=== PATIENT | male | born 1955 | race Caucasian/White ===

== ENCOUNTER 2019-12-26 11:36 | Outpatient (CLI) | payer MEDICARE, SELFPAY ==
[2019-12-26 11:49] LABS: Hemoglobin 13.3 g/dL (14.0-18.0); Mean Corpuscular HGB Conc 34.1 g/dL (32.0-36.0); Mean Corpuscular Volume 90.9 fL (78.0-102.0); Mean Platelet Volume 10.5 fl (8.7-11.0); Platelet Count Result 162 K/mm3 (150-420); Red Blood Count 4.29 M/mm3 (4.70-6.10); Red Cell Distribution Width 13.3 % (11.6-14.4); White Blood Count 5.4 K/mm3 (4.8-10.8)
[2019-12-26 11:59] LABS: Hemoglobin A1C 5.8 % (<5.7)
[2019-12-26 12:47] LABS: Alanine Aminotransferase 43 U/L (16-63); Albumin Level 3.5 g/dL (3.4-5.0); Alkaline Phosphatase 105 U/L (46-116); Anion Gap 13.7 mmol/L (7-16); Aspartate Amino Transferase 45 U/L (15-37); Bilirubin,Total 0.4 mg/dL (0.00-1.00); Blood Urea Nitrogen 14 mg/dL (7-18); Calcium 8.5 mg/dL (8.5-10.1); Carbon Dioxide 27 mmol/L (21-32); Chloride 106 mmol/L (98-108); Estimated Glomerular Filt Rate > 60; Glucose 94 mg/dL (70-99); Osmolality Calculated 296 mOsm/kg (285-295); Potassium 3.7 mmol/L (3.5-5.1); Sodium 143 mmol/L (136-145); Total Protein 7.1 g/dL (6.4-8.2)
== END 2019-12-26 11:37 | disposition home or self-care (01) ==
LOC: CHSLAB 11:40
PROVIDERS: PCP Family Medicine; Visit Provider Family Medicine
DX: R73.03 Prediabetes (principal); I10 Essential (primary) hypertension
CPT/HCPCS: 36415; 80053; 83036; 85027

== ENCOUNTER 2020-06-23 14:35 | Outpatient (CLI) | payer MEDICARE, SELFPAY ==
--- NOTE | ~2020-06-23 | XR_ITS ---
EXAMINATION: XR ribs BI 3V w CXR 2V DATE: 06/23/2020 15:05 INDICATION: Bilateral rib and back pain post fall TECHNIQUE: PA and lateral views of the chest and 3 views of the left ribs and 3 views of the right ri bs were obtained. COMPARISON: None FINDINGS: No rib fractures identified. Findings reticular pattern in the anterior right upper lung zone with mo re coarse reticular opacities at the bilateral lung bases. No pleural effusion or pneumothorax. Cardi omediastinal silhouette is normal. Mild thoracic kyphosis with chronic mild anterior wedging of sever al mid to lower thoracic vertebral bodies. Mild thoracic spondylosis. IMPRESSION: 1. No rib fractures. 2. Fine reticular pattern in the anterior right upper lung zone and mild more coarse reticular opacit ies at the bilateral lung bases. Differential would include atelectasis, mild pulmonary edema, pneumo clemente, chronic interstitial lung disease or some combination thereof. Reviewed, dictated and finalized at location . ER HELPER IMPRESSION: 1. No rib fractures. 2. Fine reticular pattern in the anterior right upper lung zone and mild more c oarse reticular opacities at the bilateral lung bases. Differential would inclu de atelectasis, mild pulmonary edema, pneumonia, chronic interstitial lung dise ase or some combination thereof.
== END 2020-06-23 14:36 | disposition home or self-care (01) ==
LOC: CHSIMG 14:38
PROVIDERS: PCP Family Medicine; Visit Provider Family Medicine
DX: M54.9 Dorsalgia, unspecified (principal)
CPT/HCPCS: 71046; 71110

== ENCOUNTER 2021-01-15 09:11 | Outpatient (CLI) | payer MEDICARE, SELFPAY ==
--- NOTE | ~2021-01-15 | US_ITS ---
EXAMINATION:US venous doppler LE BI INDICATION:Leg pain TECHNIQUE: Multiple grayscale, color flow and Doppler images of the right and left lower extremity de ep venous systems were obtained and reviewed. COMPARISON:No prior studies for comparison. FINDINGS: The common femoral, superficial femoral and popliteal veins demonstrate normal respiratory variation, augmentation and compressibility. Color flow is also seen within the posterior tibial, pe roneal, greater saphenous and profunda veins. IMPRESSION: 1: No lower extremity deep venous thrombosis. Reviewed, dictated and finalized at location A.
[2021-01-15 09:30] LABS: Basophils Absolute Auto 0.07 K/mm3 (0.00-0.10); Eosinophils Absolute Auto 0.21 K/mm3 (0.02-0.50); Hematocrit 43.8 % (37.0-46.0); Immature Granulocyte Absolute 0.02 K/mm3 (0.00-0.00); Immature Granulocyte Percent A 0.3 % (0.0-0.0); Lymphocytes Absolute Auto 2.47 K/mm3 (1.10-4.50); Lymphocytes Percent Auto 35.6 % (18.0-42.0); Mean Corpuscular HGB Conc 34.2 g/dL (32.0-36.0); Mean Corpuscular Hemoglobin 31.4 pg (27.0-31.0); Mean Corpuscular Volume 91.8 fL (78.0-102.0); Mean Platelet Volume 10.9 fl (8.7-11.0); Monocytes Absolute Auto 0.78 K/mm3 (0.10-0.90); Monocytes Percent Auto 11.2 % (2.0-11.0); Neutrophils Absolute Auto 3.4 K/mm3 (1.7-7.2); Neutrophils Percent Auto 48.9 % (50.0-70.0); Platelet Count Result 174 K/mm3 (150-420); Red Blood Count 4.77 M/mm3 (4.70-6.10); Red Cell Distribution Width 13.7 % (11.6-14.4); White Blood Count 6.9 K/mm3 (4.8-10.8)
[2021-01-15 10:27] LABS: Rheumatoid Factor Screen Negative (Negative)
[2021-01-15 10:45] LABS: Alanine Aminotransferase 34 U/L (16-63); Albumin Level 3.8 g/dL (3.4-5.0); Alkaline Phosphatase 112 U/L (46-116); Anion Gap 12 mmol/L (8-16); Aspartate Amino Transferase 43 U/L (15-37); Bilirubin,Total 0.6 mg/dL (0.00-1.00); Blood Urea Nitrogen 26 mg/dL (7-18); Calcium 9.3 mg/dL (8.5-10.1); Carbon Dioxide 25 mmol/L (21-32); Chloride 101 mmol/L (98-108); Cholesterol 135 mg/dL (0-200); Creatine Kinase 172 U/L (39-308); Estimated Glomerular Filt Rate 52; Ferritin 87 ng/mL (26-388); Glucose 91 mg/dL (70-99); HDL Direct 42 mg/dL (40-60); Iron 81 ug/dL (65-175); LDL Cholesterol Calculated 74 mg/dL (<130); Osmolality Calculated 290 mOsm/kg (285-295); Percent Iron Saturation 23 % (12-57); Potassium 4.4 mmol/L (3.5-5.1); Sodium 138 mmol/L (136-145); Total Protein 7.8 g/dL (6.4-8.2); Triglycerides 97 mg/dL (0-150); Uric Acid 6.6 mg/dL (3.5-7.2)
[2021-01-15 10:48] LABS: Thyroid Stimulating Hormone Reflex 1.48 u/IU/mL (0.36-3.74)
[2021-01-15 11:15] LABS: Erythrocyte Sedimentation Rate 24 mm/hr (0-20)
== END 2021-01-15 09:12 | disposition home or self-care (01) ==
LOC: CHSLAB 09:15
PROVIDERS: PCP Family Medicine; Visit Provider Family Medicine
DX: M10.9 Gout, unspecified (principal); I10 Essential (primary) hypertension; M79.604 Pain in right leg; M79.605 Pain in left leg; R71.8 Other abnormality of red blood cells
CPT/HCPCS: 36415; 80053; 80061; 82550; 82728; 83540; 83550; 84443; 84550; 85025; 85652; 86038; 86140; 86430; 93970

== ENCOUNTER 2021-03-29 10:45 | Emergency (ER) | payer MEDICARE, SELFPAY ==
[2021-03-29 10:45] VITALS: BP 125/72; PULSE 85; RESP 16; TEMP 36.9; O2SAT 97
--- NOTE | 2021-03-29 10:57 | ED.URI ---
HPI - URI/Sore Throat General Chief Complaint: Upper Respiratory Infection Stated Complaint: tightness in chest Time Seen by Provider: 03/29/21 11:00 Source: patient Mode of arrival: ambulatory Limitations: no limitations History of Present Illness HPI Narrative: 66-year-old man with a history of hypertension and dyslipidemia comes to ER today complaining of 3 days of progressively worsening cough which is now nonproductive, shortness of breath, sore throat, nasal congestion and a fever of 103 last night. Patient states he has had no nausea, vomiting, diarrhea or known sick exposures. MD elicited complaint: fever, cough, sore throat, rhinorrhea and nasal congestion Onset (ago): day(s) (3) Consistency: constant and progressively worsening Severity: moderate Able to tolerate fluids by mouth: Yes Exacerbating factors: deep breaths Relieving factors: OTC cold medicine Associated symptoms: fever, myalgias, rhinorrhea, nasal congestion, sore throat, cough and shortness of breath Treatments prior to arrival: cold medicine Related Data Allergies Allergy/AdvReac Type Severity Reaction Status Date / Time tramadol Allergy Unknown Unknown Verified 01/15/21 08:14 Review of Systems Review of Systems: All systems reviewed & are unremarkable except as noted in HPI and below Constitutional: Constitutional: Denies chills and Reports fever(s) Eyes: Eyes: Denies change in vision and Denies photophobia ENT: Reports nasal congestion and Reports sore throat Cardiovascular: Cardiovascular: Denies chest pain and Denies radiating jaw, neck or arm pain Respiratory: Respiratory: Reports chest congestion, Reports cough, Reports dyspnea and Denies wheezing Gastrointestinal: Gastrointestinal: Denies abdominal pain, Denies diarrhea, Denies nausea and Denies vomiting Musculoskeletal: Musculoskeletal: Denies back pain, Denies arthralgias and Denies joint swelling Integumentary/Breasts: Skin/Breast: Denies pruritus, Denies erythema and Denies rash Neurologic: Denies vertigo, Denies dizziness and Denies syncope Endocrine: Endocrine: Denies polydipsia and Denies polyuria Hematologic/Lymphatic: Hematologic/Lymphatic: Denies easy bleeding and Denies easy bruising Allergic/Immunologic: Allergic/Immunologic: Denies lip swelling and Denies throat swelling PMFSH Past Medical History Medical History Bilateral leg pain Cough Depression Gout Hypertension Overweight Surgical History Surgical History No history of previous surgery Family History Family History Mother Diabetes mellitus Social History Social History Smoking status: Never smoker Additional living arrangements comments: . Exam Const: General: healthy appearing, no acute distress and alert Orientation/consciousness: patient oriented x3 Limitations: no limitations HENMT: Head: normal to inspection General nose exam: Normal nares present Face and sinus: normal facial exam Mouth: Yes moist mucous membranes Throat: posterior oropharynx normal Eyes: Conjunctivae: conjunctivae normal Pupils: Equal, round and reactive pupils present EOM: EOMs intact bilaterally Resp: Effort & Inspection: normal respiratory effort and not labored Auscultation: clear to auscultation bilaterally, no rales, no rhonchi and no wheezes Cardio: Rate: regular rate Rhythm: regular rhythm Heart sounds: no murmurs Skin: General skin exam: normal color, no jaundice and no pallor Rashes: no rashes Neuro: General: patient oriented x3, moves all extremities, no focal motor deficits and CN's II-XI intact bilaterally Cranial nerves: Yes Nystagmus not present Speech: normal speech Gait exam (Neuro): Normal gait present Extrem: General: normal to inspection and no clubbing,
[2021-03-29 11:37] LABS: Influenza Control Valid (Valid)
[2021-03-29 11:38] LABS: SARS-CoV-2 Ag Negative (Negative)
[2021-03-29 11:46] VITALS: PULSE 85; RESP 16; O2SAT 97
== END 2021-03-29 11:52 | disposition home or self-care (01) ==
PROVIDERS: Emergency Provider Emergency Medicine; PCP Family Medicine
DX: B34.9 Viral infection, unspecified (principal); Z20.822 Contact with and (suspected) exposure to COVID-19
CPT/HCPCS: 87426; 87804; 99283; C9803

== ENCOUNTER 2021-04-20 10:07 | Outpatient (CLI) | payer MEDICARE, SELFPAY | END 2021-04-20 10:08 | disposition home or self-care (01) | LOC: CHSLAB 10:09 | PROVIDERS: PCP Family Medicine; Visit Provider Family Medicine | DX: R19.7 Diarrhea, unspecified (principal) | CPT/HCPCS: 87045; 87324; 87427 ==

== ENCOUNTER 2021-04-23 13:12 | Outpatient (CLI) | payer MEDICARE, SELFPAY ==
[2021-04-23 14:12] LABS: Alanine Aminotransferase 230 U/L (16-63); Alkaline Phosphatase 189 U/L (46-116); Aspartate Amino Transferase 106 U/L (15-37); Bilirubin Direct 0.1 mg/dL (0-0.2); Bilirubin,Total 0.4 mg/dL (0.00-1.00); Total Protein 6.3 g/dL (6.4-8.2)
== END 2021-04-23 13:13 | disposition home or self-care (01) ==
LOC: CHSLAB 13:14
PROVIDERS: PCP Family Medicine; Visit Provider Nurse Practitioner Family
DX: R17 Unspecified jaundice (principal)
CPT/HCPCS: 36415; 80076

== ENCOUNTER 2021-04-23 16:55 | Observation (INO) | payer MEDICARE, SELFPAY ==
--- NOTE | ~2021-04-23 | US_ITS ---
EXAMINATION: US right upper quadrant DATE: 04/24/2021 08:03 INDICATION: Right upper quadrant abdominal pain. Acute pancreatitis. TECHNIQUE: Multiple grayscale and Doppler ultrasound images of the abdomen were obtained. COMPARISON: CT abdomen and pelvis 04/23/2021 FINDINGS: The visualized portions of the head of the pancreas is normal. Note that ultrasound has poo r sensitivity and specificity for pancreatitis. The liver is normal without focal lesion. There is no rmal flow in main portal vein. The gallbladder is normal in size. There are gallstones in the gallbla dder. Gallbladder wall thickening is noted. There was no sonographic Fischer sign. The common duct is mildly dilated to 8 mm. IMPRESSION: 1. Cholelithiasis. Gallbladder wall thickening may be secondary to interstitial edema or from inflamm ation from the nearby pancreatitis seen by CT. 2. Mildly dilated common duct. Reviewed, dictated and finalized at location A. IMPRESSION: 1. Cholelithiasis. Gallbladder wall thickening may be secondary to interstitial edema or from inflammation from the nearby pancreatitis seen by CT. 2. Mildly dilated common duct.
--- NOTE | ~2021-04-23 | CT_ITS ---
EXAMINATION: CT abdomen pelvis w con DATE: 04/23/2021 18:30 INDICATION: Shortness of breath and chest pressure TECHNIQUE: Computed tomography (CT) of the abdomen and pelvis was performed with 100 mL Omnipaque-350 intravenous contrast. Automated exposure control and iterative reconstruction technique were employe d. The dose-length product was 1008.76 mGy-cm. COMPARISON: 08/20/2018 FINDINGS: Mild emphysema. Coarse reticular opacities with some honeycombing at the periphery of the bilateral l ower lungs consistent with usual interstitial pneumonia (UIP) pattern chronic interstitial lung disea se. Heart size is normal. Atherosclerotic coronary artery calcification. No pericardial or pleural ef fusion. Very small sliding-type hiatal hernia. Focal hepatic steatosis at the ligamentum teres. Commo n bile duct is normal in diameter measuring up to 5 mm. There is mild biliary ductal dilation in the right hepatic lobe. There is heterogeneous attenuation within the decompressed gallbladder which coul d represent stones or sludge. Spleen, bilateral adrenal glands and left kidney are normal. A couple < 7 mm right renal cysts. Mild fatty atrophy of the pancreas with subtle haziness to the surrounding fa t and could not exclude acute interstitial pancreatitis. There are few scattered colonic diverticula without adjacent inflammatory change to suggest diverticular colitis. There is a short segment of terell arent wall thickening near the splenic flexure of the colon. There is additional mild wall thickening and subtle haziness to the surrounding fat at the distal sigmoid colon consistent with mild distal c olitis. Small bowel and appendix are normal. Bladder is normal. Small amount of ascites in the pelvi s. No abscess or free intraperitoneal gas. No free intraperitoneal gas or fluid. No pathologically en larged abdominal or pelvic lymphadenopathy. Moderate lower thoracic spondylosis with chronic mild ant erior wedging of a few lower thoracic vertebral bodies. IMPRESSION: 1. Subtle haziness to the fat surrounding the pancreas which could be seen with a mild acute intersti tial pancreatic head. Correlate with amylase and lipase levels. 2. Suggestion of cholelithiasis with normal caliber common bile duct but mild intrahepatic biliary du ctal dilation. Correlate with liver function tests and if indicated could consider further evaluation with MRCP. 3. Wall thickening and mild haziness to the fat surrounding the distal colon which could be due to co litis either infectious, inflammatory or less likely ischemic in etiology. 4. Short segment wall thickening near the splenic flexure of the colon which could be due to peristal sis, scarring related to chronic colitis. Differential would also include malignancy and would recomm end follow-up colonoscopy for further evaluation. 5. Mild emphysema and UIP pattern chronic interstitial lung disease at the periphery of the lung base s. Reviewed, dictated and finalized at location A. IMPRESSION: 1. Subtle haziness to the fat surrounding the pancreas which could be seen with a mild acute interstitial pancreatic head. Correlate with amylase and lipase l evels. 2. Suggestion of cholelithiasis with normal caliber common bile duct but mild i ntrahepatic biliary ductal dilation. Correlate with liver function tests and if indicated could consider further evaluation with MRCP. 3. Wall thickening and mild haziness to the fat surrounding the distal colon wh ich could be due to colitis either infectious, inflammatory or less likely isch emic in etiology. 4. Short segment wall thickening near the splenic flexure of the colon which co uld be due to peristalsis, scarring related to chronic colitis. Differential wo uld also include malignancy and would recommend follow-up colonosc
[2021-04-23 17:00] VITALS: BP 125/66; PULSE 79; RESP 16; TEMP 37.1; O2SAT 98
--- NOTE | 2021-04-23 17:20 | ECG_ITS ---
Measurements Intervals [place] Rate: 78 P: 61 NC: 155 QRS: 3 QRSD: 106 T: 34 QT: 367 QTc: 419 Interpretive Statements SINUS RHYTHM BASELINE WANDER- V6 NORMAL ECG Electronically Signed On 04-23-2021 20:12:31 CDT by Jarad Islas D.O.
[2021-04-23] MEDS: MORPHINE SULFATE (*CRX) 2 MG/ML INJ IV PUSH ×2 (17:40→22:19)
[2021-04-23] MEDS: SODIUM CHLORIDE 0.9% IV 1,000 ML 999 ML IV CONT (17:40)
[2021-04-23 17:44] LABS: Hematocrit 33.9 % (37.0-46.0); Hemoglobin 11.6 g/dL (12.4-15.3); Mean Corpuscular HGB Conc 34.2 g/dL (32.0-36.0); Mean Corpuscular Hemoglobin 31.5 pg (27.0-31.0); Mean Corpuscular Volume 92.1 fL (78.0-102.0); Mean Platelet Volume 10.8 fl (8.7-11.0); Platelet Count Result 147 K/mm3 (150-420); Red Blood Count 3.68 M/mm3 (4.70-6.10); Red Cell Distribution Width 13.3 % (11.6-14.4); White Blood Count 8.7 K/mm3 (4.8-10.8)
[2021-04-23 17:54] LABS: INR 1.1; Prothrombin Time 11.4 Seconds (9.50-12.10)
[2021-04-23 17:58] LABS: Alanine Aminotransferase 197 U/L (16-63); Albumin Level 2.7 g/dL (3.4-5.0); Alkaline Phosphatase 169 U/L (46-116); Anion Gap 8 mmol/L (8-16); Aspartate Amino Transferase 80 U/L (15-37); Bilirubin,Total 0.3 mg/dL (0.00-1.00); Blood Urea Nitrogen 15 mg/dL (7-18); Calcium 8.2 mg/dL (8.5-10.1); Carbon Dioxide 26 mmol/L (21-32); Chloride 105 mmol/L (98-108); Estimated CRCL calculation 61 ml/min; Estimated Glomerular Filt Rate > 60; Glucose 153 mg/dL (70-99); Lipase 1051 U/L (73-393); Osmolality Calculated 291 mOsm/kg (285-295); Potassium 3.3 mmol/L (3.5-5.1); Sodium 139 mmol/L (136-145); Total Protein 6.5 g/dL (6.4-8.2); Troponin I 7.9 ng/L (0.00-60.4)
[2021-04-23 18:00] LABS: Lactic Acid Reflex 1.6 mmol/L (0.4-2.0)
[2021-04-23 18:02] LABS: Band Neutrophils Percent 0 % (0-6); Basophils Absolute Manual 0.08 K/mm3 (0-0.1); Basophils Percent Manual 1 % (0-1); Eosinophils Absolute Manual 0.26 K/mm3 (0.02-0.5); Eosinophils Percent Manual 3 % (1-6); Lymphocytes Absolute Manual 2.26 K/mm3 (1.1-4.5); Lymphocytes Percent Manual 26 % (18-44); Monocytes Absolute Manual 1.39 K/mm3 (0.1-0.90); Monocytes Percent Manual 16 % (3-9); Neutrophils Absolute Manual 4.69 K/mm3 (1.3-6.7); Neutrophils Percent Manual 54 % (46-73); Platelet Estimate Adequate (Adequate)
--- NOTE | 2021-04-23 19:19 | ED.GENADULT ---
HPI - General Adult General Chief complaint: Unspecified Stated complaint: not feeling well/elevated liver enzymes Source: patient and family Limitations: no limitations History of Present Illness HPI narrative: this is a 66-year-old gentleman that presents to the emergency department after his primary ordered some blood work which showed that he had an elevated liver function test, has been having abdominal pain that localizes epigastric and right upper quadrant, with some no nausea vomiting no fever chills, pain radiates to his mid back, patient was diagnosed with C diff and treated and end of treatment about 4 weeks ago currently having loose stools but non watery diarrhea with no dysuria no hematuria. Onset (ago): week(s) Location: abdomen Radiation: back Severity: moderate Severity scale (1-10): 6 Quality: aching Pain Consistency: intermittent Relieving factors: none Exacerbating factors: none Associated symptoms: denies other symptoms Related Data Allergies Allergy/AdvReac Type Severity Reaction Status Date / Time tramadol Allergy Unknown Unknown Verified 04/20/21 07:54 Review of Systems Review of Systems: All systems reviewed & are unremarkable except as noted in HPI and below PMFSH Past Medical History Medical History Bilateral leg pain Cough Depression Gout Hypertension Overweight Surgical History Surgical History No history of previous surgery Family History Family History Mother Diabetes mellitus Social History Social History Smoking status: Never smoker Alcohol intake: current Alcohol use details: social Substance use: never Substance use type: does not use Additional living arrangements comments: . Exam Const: General: cooperative and healthy appearing HENMT: Head: normal to inspection Ears: hearing grossly normal bilaterally General nose exam: Normal external nose present Face and sinus: normal facial exam and sinuses nontender Mouth: Yes Normal oral and palatal mucosa present Eyes: General: appearance normal, both eyes and all related structures Eyelids: eyelids normal Conjunctivae: conjunctivae normal Sclera: sclerae normal Chest: Chest palpation & inspection: normal inspection of the chest and normal palpation of entire chest wall Resp: Effort & Inspection: normal respiratory effort and able to speak in complete sentences Auscultation: clear to auscultation bilaterally GI: Inspection: normal to inspection GI Palp: Yes abdominal tenderness and Yes Soft to palpation Auscultation: normal bowel sounds Back/Spine/Pelvis: Back: no CVA tenderness Cervical Spine: cervical ROM normal Thoracic/Lumbar Spine: straight leg raise negative bilaterally Skin: General skin exam: no rashes or lesions noted Neuro: Speech: normal speech Gait exam (Neuro): Normal gait present Psych: Appearance: grossly normal and well kempt Mental Status: mental status grossly normal Course Course Emergency Course: Labs reviewed with patient, a lipase elevated over a 1000, CT scan of abdomen reviewed with patient and family was told that does show evidence of pancreatitis with evidence of gallstones and evidence of colitis. Vital Signs Vital signs: Vital Signs Temperature 37.1 C 04/23/21 17:00 Pulse Rate 79 04/23/21 17:00 Respiratory Rate 16 04/23/21 17:00 Blood Pressure 125/66 04/23/21 17:00 Pulse Oximetry 98 04/23/21 17:00 Temperature 37.1 C 04/23/21 17:00 Pulse Rate 79 04/23/21 17:00 Respiratory Rate 16 04/23/21 17:00 Blood Pressure 125/66 04/23/21 17:00 Pulse Oximetry 98 04/23/21 17:00 Medical Decision Making Vital Signs Vital Signs: Vital Signs Temperature 37.1 C 04/23/21 17:00 Pulse Rate 79 04/23/21 17
[2021-04-23 19:45] LABS: Appearance Urine Clear (Clear); Bilirubin Urine Negative (Negative); Color Urine Light Yellow (Yellow); Glucose Urine UA Negative (Negative); Ketones Urine Negative (Negative); Leukocyte Esterase Ur Negative (Negative); Nitrate Urine Negative (Negative); Protein Urine Negative (Negative); Specific Grav Ur <= 1.005 (1.010-1.020); Urobilinogen Urine 0.2 mg/dL (0.2-1.0)
[2021-04-23 19:47] VITALS: BP 105/58; PULSE 74; RESP 20; TEMP 36.9; O2SAT 97
[2021-04-23 19:50] LABS: Add Urine Microscopic? YES; Bacteria Urine None seen /hpf; Blood Urine Trace-lysed (Negative); RBC Urine 0-2 /hpf (0-2); Squamous Epithelial Cell Urine None seen /hpf (Few); WBC Urine 0-3 /hpf (0-3)
[2021-04-23 20:00] VITALS: BP 122/71; PULSE 72; RESP 20; TEMP 36.8; O2SAT 99
[2021-04-23] MEDS: SODIUM CHLORIDE 0.9% IV 1,000 ML 100 ML IV CONT (20:21)
[2021-04-23 20:31] VITALS: BMI 34.0
--- NOTE | 2021-04-23 20:33 | PC.NURSE ---
Brian admitted to room 204 from the ER, is alert and oriented x 3, Ambulaets independently, NPO at this time, IV fluids per orders, oriented to room and surroundings.
[2021-04-23] MEDS: CIPROFLOXACIN 400 MG/D5W 200ML 200 ML 200 MG IVPB (21:03)
[2021-04-23] MEDS: PANTOPRAZOLE SODIUM IV 40 MG VIAL IV PUSH (21:04)
[2021-04-23 21:42] VITALS: BP 122/71; PULSE 72; RESP 20; TEMP 37; O2SAT 99
[2021-04-23] MEDS: metroNIDAZOLE 500 MG/ISO 100ML 500 MG/100 ML BAG 100 MG IVPB (21:59)
[2021-04-24] VITALS (7 sets, daily range): BP systolic 104–132; BP diastolic 55–74; PULSE 69–84; RESP 18–20; TEMP 36–37.1; O2SAT 94–99
[2021-04-24 05:36] LABS: Hematocrit 32.4 % (37.0-46.0); Hemoglobin 10.8 g/dL (12.4-15.3); Mean Corpuscular HGB Conc 33.3 g/dL (32.0-36.0); Mean Corpuscular Volume 93.1 fL (78.0-102.0); Mean Platelet Volume 10.6 fl (8.7-11.0); Platelet Count Result 123 K/mm3 (150-420); Red Blood Count 3.48 M/mm3 (4.70-6.10); Red Cell Distribution Width 13.4 % (11.6-14.4); White Blood Count 5.6 K/mm3 (4.8-10.8)
[2021-04-24 05:55] LABS: Alanine Aminotransferase 186 U/L (16-63); Albumin Level 2.3 g/dL (3.4-5.0); Alkaline Phosphatase 162 U/L (46-116); Anion Gap 7 mmol/L (8-16); Aspartate Amino Transferase 91 U/L (15-37); Bilirubin,Total 0.4 mg/dL (0.00-1.00); Blood Urea Nitrogen 12 mg/dL (7-18); Calcium 7.7 mg/dL (8.5-10.1); Carbon Dioxide 27 mmol/L (21-32); Chloride 108 mmol/L (98-108); Estimated CRCL calculation 72 ml/min; Estimated Glomerular Filt Rate > 60; Glucose 107 mg/dL (70-99); Osmolality Calculated 293 mOsm/kg (285-295); Potassium 3.3 mmol/L (3.5-5.1); Sodium 142 mmol/L (136-145); Total Protein 5.9 g/dL (6.4-8.2)
[2021-04-24 05:56] LABS: Lipase > 1500 U/L (73-393)
[2021-04-24 05:58] LABS: Band Neutrophils Percent 0 % (0-6); Neutrophils Absolute Manual 3.02 K/mm3 (1.3-6.7); Neutrophils Percent Manual 54 % (46-73); Total Cells Counted 100
[2021-04-24 05:59] LABS: Basophils Absolute Manual 0.05 K/mm3 (0-0.1); Basophils Percent Manual 1 % (0-1); Eosinophils Absolute Manual 0.11 K/mm3 (0.02-0.5); Eosinophils Percent Manual 2 % (1-6); Lymphocytes Absolute Manual 1.28 K/mm3 (1.1-4.5); Lymphocytes Percent Manual 23 % (18-44); Monocytes Absolute Manual 1.12 K/mm3 (0.1-0.90); Monocytes Percent Manual 20 % (3-9); Platelet Estimate Adequate (Adequate)
[2021-04-24] MEDS: metroNIDAZOLE 500 MG/ISO 100ML 500 MG/100 ML BAG 100 MG IVPB ×3 (05:59→21:24)
[2021-04-24] MEDS: CIPROFLOXACIN 400 MG/D5W 200ML 200 ML 200 MG IVPB ×2 (08:22→20:00)
[2021-04-24] MEDS: SODIUM CHLORIDE 0.9% IV 1,000 ML 100 ML IV CONT ×2 (08:22→21:30)
[2021-04-24] MEDS: HYDROmorphone HCL INJ (*CRX) 2 MG/ML VIAL 1 MG IV PUSH ×4 (08:23→20:19)
[2021-04-24] MEDS: ENOXAPARIN 40 MG/0.4 ML SYRINGE SUB-Q (08:23)
--- NOTE | 2021-04-24 11:43 | PM.IMHP ---
H&P: HPI History of Present Illness Date/Time: 04/24/21 11:43 this is a 66-year-old male did present to our emergency department after lab work was completed his primary care physician office that indicated the patient had elevated LFTs. Patient noted that he had abdominal pain in his right upper quadrant in his epigastric area and diarrhea for approximately 2 weeks. Patient notes that he presented to his doctor's office for the diarrhea due to his history of C diff, lab test indicated that he did not have C diff. Imaging did indicate that patient has pancreatitis with cholelithiasis. patient notes that in the past he has had pancreatitis 1 other time. patient does drink alcoholic beverages on Mondays and Fridays while watching sports. He notes that he drinks about 6 cans of beers each day. patient notes that morphine was not effective changed to Dilaudid. patient notes that Dilaudid does relieve his abdominal pain during our assessment he did not have any tenderness to his abdominal area with palpation. Vital signs 132/74, 74, 18, 98.7, 97% on room air, WBCs 8.7, hemoglobin 11.6, hematocrit 33.9, platelets 147, sodium 139, potassium 3.3, BUN 15, creatinine 1.19, glucose 153, lactic acid 1.6, AST 106, ALT 230, troponin 7.9, lipase 1051 patient being admitted for pancreatitis, colitis. Patient denies cp, sob, palpitation, diarrhea, constipation, lightheadness, headache, dizziness or chills and fevers. Chief Complaint: abnormal liver function tests and abdominal pain Review of Systems Review of Systems: A 14 organ system Review of Systems was performed and pertinent positives included in the HPI, otherwise [facility] Past Medical History Medical History Bilateral leg pain Cough Depression Gout Hypertension Overweight Surgical History Surgical History No history of previous surgery Family History Family History Mother Diabetes mellitus Social History Social History Smoking status: Former smoker Second hand tobacco smoke exposure: No Alcohol intake: current Alcohol use details: social Substance use: never Substance use type: does not use Additional living arrangements comments: . Spiritual care concerns: No Meds Home Medications and Allergies Home Medications Medication Instructions Recorded Confirmed Type omeprazole 40 mg capsule,delayed See Rx Instructions .ROUTE 11/27/20 04/23/21 Rx release .COMPLEX #90 cap cholecalciferol (vitamin D3) 125 125 mcg PO DAILY #30 cap 01/15/21 04/23/21 Rx mcg (5,000 unit) capsule gabapentin 300 mg capsule 300 mg PO TID #90 cap 01/15/21 04/23/21 Rx benzonatate 200 mg PO Q8H PRN #20 cap 03/29/21 04/23/21 Rx sjdjbndpxn-uwbhullnhovzn-sqbyztgq 1 cap PO Q8H PRN #20 cap 04/20/21 04/23/21 Rx 50 mg-300 mg-40 mg capsule allopurinol 100 mg tablet See Rx Instructions .ROUTE 04/22/21 04/23/21 Rx .COMPLEX #90 tablet atorvastatin 40 mg tablet See Rx Instructions .ROUTE 04/22/21 04/23/21 Rx .COMPLEX #90 tablet fluoxetine 20 mg capsule See Rx Instructions .ROUTE 04/22/21 04/23/21 Rx .COMPLEX #90 cap lisinopril 20 mg tablet See Rx Instructions .ROUTE 04/22/21 04/23/21 Rx .COMPLEX #90 tablet Allergies Allergy/AdvReac Type Severity Reaction Status Date / Time tramadol Allergy Unknown Unknown Verified 04/20/21 07:54 Vital Signs Vital Signs - 24 hr 04/23/21 17:00 04/23/21 19:47 04/23/21 20:00 Temperature 98.7 F 98.4 F 98.3 F Pulse Rate 79 74 72 Respiratory Rate 16 20 20 Blood Pressure 125/66 105/58 L 122/71 Pulse Oximetry 98 97 99 04/23/21 21:42 04/24/21 00:00 04/24/21 04:00 Temperature 98.6 F 96.8 F L 97.6 F Pulse Rate 72 73 69 Respiratory Rate 20 20 20 Blood Pressure 122/71 104/55 L 109/57 L Pulse Oximetry
[2021-04-24] MEDS: KCL 20 MEQ/SW 100 ML 100 ML 50 MEQ IVPB (13:38)
--- NOTE | 2021-04-24 16:38 | PC.NURSE ---
Patient resting in bed ambulating to bathroom at times. C/o pain and discomfort in abdomen voiced w/pain meds given as ordered and effective. IV fluids and ABT continues as ordered.
[2021-04-24] MEDS: PANTOPRAZOLE SODIUM IV 40 MG VIAL IV PUSH (20:00)
[2021-04-24] MEDS: diphenhydrAMINE HCl INJ 50 MG/ML VIAL 25 MG IV PUSH (20:25)
[2021-04-25] MEDS: HYDROmorphone HCL INJ (*CRX) 2 MG/ML VIAL 1 MG IV PUSH (01:49)
[2021-04-25 04:00] VITALS: RESP 18
[2021-04-25 05:20] LABS: Hematocrit 32.1 % (37.0-46.0); Hemoglobin 10.6 g/dL (12.4-15.3); Immature Platelet Fraction Pct 3.3 % (1.0-7.0); Mean Corpuscular Volume 93.9 fL (78.0-102.0); Mean Platelet Volume 10.9 fl (8.7-11.0); Platelet Count Result 135 K/mm3 (150-420); Red Blood Count 3.42 M/mm3 (4.70-6.10); Red Cell Distribution Width 13.4 % (11.6-14.4); White Blood Count 5.7 K/mm3 (4.8-10.8)
[2021-04-25 05:41] LABS: Alanine Aminotransferase 152 U/L (16-63); Albumin Level 2.2 g/dL (3.4-5.0); Alkaline Phosphatase 146 U/L (46-116); Anion Gap 10 mmol/L (8-16); Aspartate Amino Transferase 66 U/L (15-37); Bilirubin,Total 0.4 mg/dL (0.00-1.00); Blood Urea Nitrogen 11 mg/dL (7-18); Calcium 7.8 mg/dL (8.5-10.1); Carbon Dioxide 27 mmol/L (21-32); Chloride 106 mmol/L (98-108); Estimated CRCL calculation 78 ml/min; Estimated Glomerular Filt Rate > 60; Glucose 74 mg/dL (70-99); Lipase 517 U/L (73-393); Magnesium 1.4 mg/dL (1.8-2.4); Osmolality Calculated 294 mOsm/kg (285-295); Potassium 3.3 mmol/L (3.5-5.1); Sodium 143 mmol/L (136-145); Total Protein 6.1 g/dL (6.4-8.2)
[2021-04-25] MEDS: metroNIDAZOLE 500 MG/ISO 100ML 500 MG/100 ML BAG 100 MG IVPB (05:58)
[2021-04-25 06:23] VITALS: BP 130/68; PULSE 70; RESP 16; TEMP 36.3; O2SAT 97
[2021-04-25] MEDS: MAGNESIUM SULF 4 GM/WATER100ML 4 GM/100 ML BAG IVPB (07:53)
[2021-04-25 08:00] VITALS: BP 124/60; PULSE 70; RESP 18; TEMP 36; O2SAT 95
[2021-04-25] MEDS: CIPROFLOXACIN 400 MG/D5W 200ML 200 ML 200 MG IVPB (09:21)
[2021-04-25] MEDS: SODIUM CHLORIDE 0.9% IV 1,000 ML 100 ML IV CONT (09:21)
[2021-04-25] MEDS: ENOXAPARIN 40 MG/0.4 ML SYRINGE SUB-Q (09:22)
--- NOTE | 2021-04-25 10:02 | P.DS_ITS ---
DS: Admitting Diagnosis Discharge Date 04/25/2021 <Marshall Mackay VIDAL - Last Filed: 04/25/21 10:18> Admitting Diagnosis Acute pancreatitis and colitis <Marshall Mackay RURAL SOCIOLOGISTNievesWili - Last Filed: 04/25/21 10:18> DS: Discharge Diagnosis Discharge Diagnosis (1) Acute pancreatitis: Qualifiers: Pancreatitis type: alcohol induced <Marshall Mackay VIDAL - Last Filed: 04/25/21 10:18> Code(s): K85.90 - Acute pancreatitis without necrosis or infection, unspecified <Marshall Mackay VIDAL - Last Filed: 04/25/21 10:18> Status: Acute <Marshall Mackay VIDAL - Last Filed: 04/25/21 10:18> Assessment and Plan: * patient does have a history of of pancreatitis * admits to alcohol use * educated on cessation * CT of the abdomen and ultrasound indicates pancreatitis * [id number]> then >1500>517 * patient will remain NPO, will advance diet when appropriate * pain control with Dilaudid * lipase in the a.m. will trend * lactic acid within normal limits Discharge * Pancreatitis resolved patient instructed to continue a bland diet and refrain from use of alcohol <Marshall Mackay RURAL SOCIOLOGISTNievesWili - Last Filed: 04/25/21 10:18> (2) Colitis: Code(s): K52.9 - Noninfective gastroenteritis and colitis, unspecified <Marshall Mackay VIDAL - Last Filed: 04/25/21 10:18> Status: Acute <Marshall Mackay VIDAL - Last Filed: 04/25/21 10:18> Assessment and Plan: * her CT indicate colitis * continue Flagyl and Cipro * white count within normal limits * continue pain medication * will continue to monitor Discharge * Patient will discharge home with 9-day supply of Cipro and Flagyl <Marshall Mackay RURAL SOCIOLOGISTNievesWili - Last Filed: 04/25/21 10:18> (3) Diarrhea: Code(s): R19.7 - Diarrhea, unspecified <Marshall Brooks Thompson RURAL SOCIOLOGISTNievesWili - Last Filed: 04/25/21 10:18> Status: Acute <Marshall MackayVIDAL - Last Filed: 04/25/21 10:18> Assessment and Plan: * resolved * C diff ruled out Discharge * Discharge home with the prescription for Imodium <Marshall MackayVIDAL - Last Filed: 04/25/21 10:18> (4) Back Pain: Code(s): M54.9 - Dorsalgia, unspecified <Marshall MackayVIDAL - Last Filed: 04/25/21 10:18> Status: Acute <Marshall MackayVIDAL - Last Filed: 04/25/21 10:18> Assessment and Plan: * continue Dilaudid <Marshall MackayVIDAL - Last Filed: 04/25/21 10:18> (5) GERD (gastroesophageal reflux disease): Code(s): K21.9 - Gastro-esophageal reflux disease without esophagitis <Marshall Brooks VIDAL Mackay - Last Filed: 04/25/21 10:18> Status: Acute <Marshall MackayVIDAL - Last Filed: 04/25/21 10:18> Assessment and Plan: * continue pantoprazole <Marshall MackayVIDAL - Last Filed: 04/25/21 10:18> (6) History of Clostridioides difficile colitis: Code(s): Z86.19 - Personal history of other infectious and parasitic diseases <Marshall MackayVIDAL - Last Filed: 04/25/21 10:18> Status: Acute <Marshall MackayVIDAL - Last Filed: 04/25/21 10:18> (7) Hypertension: Code(s): I10 - Essential (primary) hypertension <Marshall JonesVIDAL Mccray - Last Filed: 04/25/21 10:18> Status: Chronic <Marshall MackayVIDAL - Last Filed: 04/25/21 10:18> Assessment and Plan: * stable * lisinopril on hold * hydralazine with parameters ordered Discharge * Resume home medication <Terrybeatriz RobertVIDAL Mccray - Last Filed: 04/25/21 10:18> (8) Gou
--- NOTE | 2021-04-25 10:02 | PM.DS ---
DS: Admitting Diagnosis Discharge Date 04/25/2021 <Mrashall Mackay VIDAL - Last Filed: 04/25/21 10:18> Admitting Diagnosis Acute pancreatitis and colitis <Marshall Mackay SUSANWili - Last Filed: 04/25/21 10:18> DS: Discharge Diagnosis Discharge Diagnosis (1) Acute pancreatitis: Qualifiers: Pancreatitis type: alcohol induced <Marshall Mackay TIER OVERChuckie - Last Filed: 04/25/21 10:18> Code(s): K85.90 - Acute pancreatitis without necrosis or infection, unspecified <Marshall Mackay VIDAL - Last Filed: 04/25/21 10:18> Status: Acute <Marshall Mackay VIDAL - Last Filed: 04/25/21 10:18> Assessment and Plan: patient does have a history of of pancreatitis admits to alcohol use educated on cessation CT of the abdomen and ultrasound indicates pancreatitis [id number]> then >1500>517 patient will remain NPO, will advance diet when appropriate pain control with Dilaudid lipase in the a.m. will trend lactic acid within normal limits Discharge Pancreatitis resolved patient instructed to continue a bland diet and refrain from use of alcohol <Marshall Mackay TIER OVERChuckie - Last Filed: 04/25/21 10:18> (2) Colitis: Code(s): K52.9 - Noninfective gastroenteritis and colitis, unspecified <Marshall Mackay VIDAL - Last Filed: 04/25/21 10:18> Status: Acute <Marshall Mackay VIDAL - Last Filed: 04/25/21 10:18> Assessment and Plan: her CT indicate colitis continue Flagyl and Cipro white count within normal limits continue pain medication will continue to monitor Discharge Patient will discharge home with 9-day supply of Cipro and Flagyl <Marshall JonesDelores Thompson TIER OVERNievesWili - Last Filed: 04/25/21 10:18> (3) Diarrhea: Code(s): R19.7 - Diarrhea, unspecified <Marshall Mackay VIDAL - Last Filed: 04/25/21 10:18> Status: Acute <Marshall Mackay SUSANWili - Last Filed: 04/25/21 10:18> Assessment and Plan: resolved C diff ruled out Discharge Discharge home with the prescription for Imodium <Marshall MackayFIDE-C - Last Filed: 04/25/21 10:18> (4) Back Pain: Code(s): M54.9 - Dorsalgia, unspecified <Marshall MackayFIDE-C - Last Filed: 04/25/21 10:18> Status: Acute <Masrhall MackayFIDE-C - Last Filed: 04/25/21 10:18> Assessment and Plan: continue Dilaudid <Marshall MackayFIDE-C - Last Filed: 04/25/21 10:18> (5) GERD (gastroesophageal reflux disease): Code(s): K21.9 - Gastro-esophageal reflux disease without esophagitis <Marshall MackayFIDE-C - Last Filed: 04/25/21 10:18> Status: Acute <Marshall MackayFIDE-C - Last Filed: 04/25/21 10:18> Assessment and Plan: continue pantoprazole <Marshall Mackay TIER OVER-C - Last Filed: 04/25/21 10:18> (6) History of Clostridioides difficile colitis: Code(s): Z86.19 - Personal history of other infectious and parasitic diseases <Marshall Mackay TIER OVER-C - Last Filed: 04/25/21 10:18> Status: Acute <Marshall MackayFIDE-C - Last Filed: 04/25/21 10:18> (7) Hypertension: Code(s): I10 - Essential (primary) hypertension <Marshall Mackay TIER OVER-C - Last Filed: 04/25/21 10:18> Status: Chronic <Marshall MackayFIDE-C - Last Filed: 04/25/21 10:18> Assessment and Plan: stable lisinopril on hold hydralazine with parameters ordered Discharge Resume home medication <Marshall MackayFIDE-C - Last Filed: 04/25/21 10:18> (8) Gout: Code(s): M10.9 - Gout, unspecified <Sonda VIDAL Paiz - Last Filed: 04/25/21 10:18> Status: Chronic <VIDAL Bunn - Last Filed: 04/25/21 10:18> Assessment and Plan: will resume allopurinol once patient is off of NPO status Discharge Resume home medication <VIDAL Bunn - Last Filed: 04/25/21 10:18> (9) Depression:
--- NOTE | 2021-04-25 11:45 | PC.NURSE ---
Discharge instructions reviewed with patient, he verbalizes understanding. Patient taken per wheelchair to main entrance, picked up by in private vehicle.
--- NOTE | 2021-04-30 14:02 | PC.NURSE ---
Unable to contact for discharge call back.
== END 2021-04-25 11:30 | disposition home or self-care (01) ==
LOC: CHSED 16:57 → CHS2ND 19:33
PROVIDERS: Admitting Provider Emergency Medicine; Emergency Provider Emergency Medicine; PCP Family Medicine; Visit Provider Nurse Practitioner
DX: K85.90 Acute pancreatitis without necrosis or infection, unspecified (principal); K80.20 Calculus of gallbladder without cholecystitis without obstruction; K52.9 Noninfective gastroenteritis and colitis, unspecified; I10 Essential (primary) hypertension; K21.9 Gastro-esophageal reflux disease without esophagitis; M10.9 Gout, unspecified; F32.9 Major depressive disorder, single episode, unspecified; Z86.19 Personal history of other infectious and parasitic diseases; E87.8 Other disorders of electrolyte and fluid balance, not elsewhere classified; M54.9 Dorsalgia, unspecified
CPT/HCPCS: 36415; 74177; 76705; 80053; 81001; 83605; 83690; 83735; 84484; 85025; 85027; 85055; 85060; 85610; 85730; 93005; 96361; 96365; 96366; 96367; 96368; 96372; 96374; 96375; 96376; 99285; C9113; G0378; J0744; J1170; J1200; J1650; J2270; J3475; J3480; J7030; Q9967

== ENCOUNTER 2021-04-28 08:46 | Outpatient (CLI) | payer MEDICARE, SELFPAY ==
[2021-04-28 08:57] LABS: Hematocrit 36.5 % (37.0-46.0); Hemoglobin 12.2 g/dL (12.4-15.3); Mean Corpuscular HGB Conc 33.4 g/dL (32.0-36.0); Mean Corpuscular Hemoglobin 31.4 pg (27.0-31.0); Mean Corpuscular Volume 93.8 fL (78.0-102.0); Mean Platelet Volume 10.5 fl (8.7-11.0); Platelet Count Result 193 K/mm3 (150-420); Red Blood Count 3.89 M/mm3 (4.70-6.10); Red Cell Distribution Width 13.4 % (11.6-14.4); White Blood Count 7.8 K/mm3 (4.8-10.8)
[2021-04-28 09:52] LABS: Alanine Aminotransferase 101 U/L (16-63); Albumin Level 2.7 g/dL (3.4-5.0); Alkaline Phosphatase 131 U/L (46-116); Anion Gap 6 mmol/L (8-16); Aspartate Amino Transferase 56 U/L (15-37); Bilirubin,Total 0.3 mg/dL (0.00-1.00); Blood Urea Nitrogen 8 mg/dL (7-18); Calcium 8.4 mg/dL (8.5-10.1); Carbon Dioxide 32 mmol/L (21-32); Chloride 107 mmol/L (98-108); Estimated Glomerular Filt Rate > 60; Glucose 139 mg/dL (70-99); Lipase 355 U/L (73-393); Osmolality Calculated 300 mOsm/kg (285-295); Potassium 3.9 mmol/L (3.5-5.1); Sodium 145 mmol/L (136-145); Total Protein 6.2 g/dL (6.4-8.2)
== END 2021-04-28 08:47 | disposition home or self-care (01) ==
LOC: CHSLAB 08:49
PROVIDERS: PCP Family Medicine; Visit Provider Family Medicine
DX: K85.90 Acute pancreatitis without necrosis or infection, unspecified (principal)
CPT/HCPCS: 36415; 80053; 83690; 85027; 87324

== ENCOUNTER 2021-05-21 09:03 | Outpatient (CLI) | payer MEDICARE, SELFPAY ==
[2021-05-21 10:01] LABS: Amylase 119 U/L (30-110)
== END 2021-05-21 09:04 | disposition home or self-care (01) ==
PROVIDERS: PCP Family Medicine; Visit Provider Surgery
DX: K80.20 Calculus of gallbladder without cholecystitis without obstruction (principal); Z01.818 Encounter for other preprocedural examination
CPT/HCPCS: 36415; 82150; 86850; 86900; 86901

== ENCOUNTER 2021-05-25 02:21 | Day surgery (SDC) | payer MEDICARE, SELFPAY ==
[2021-05-20 14:47] VITALS: BMI 33.7
[2021-05-25] VITALS (9 sets, daily range): BP systolic 133–175; BP diastolic 65–97; PULSE 62–115; RESP 12–20; TEMP 36.6–36.9; O2SAT 98–100
--- NOTE | ~2021-05-25 | XR_ITS ---
EXAMINATION: XR cholangiogram surg 1st inj DATE: 05/25/2021 13:08 INDICATION: Right upper quadrant abdominal pain. TECHNIQUE: 65 fluoroscopic images of the right upper quadrant were obtained during intraoperative cho langiography performed by the surgeon. I was not present in the operating room. Fluoroscopy exposure time was 12 seconds. COMPARISON: CT abdomen and pelvis 04/23/2021 FINDINGS: The common duct measures 8 mm in diameter. There is a mobile 3 mm filling defect in the dis yasir common bile duct. Contrast passes to the duodenum. IMPRESSION: 1. Mobile 3 mm filling defect in the distal common bile duct, which may be a gas bubble or stone. Reviewed, dictated and finalized at location A. IMPRESSION: 1. Mobile 3 mm filling defect in the distal common bile duct, which may be a ga s bubble or stone.
[2021-05-25] MEDS: LACTATED RINGERS 1,000 ML 30 ML IV CONT ×2 (10:15→13:03)
[2021-05-25] MEDS: ACETAMINOPHEN 500 MG TABLET 1000 MG PO (10:15)
[2021-05-25] MEDS: KETOROLAC 15 MG/ML VIAL (*BKC) IV PUSH (10:15)
--- NOTE | 2021-05-25 10:25 | WPDANESEPPF ---
Anes - Initial Pre Proc Eval Procedure: Operation Date: 05/25/21 12:00 Proposed Procedures p Laparoscopic Cholecystectomy with Intraoperative Cholangiogram - Quan Olvera DO Date/Time: 05/25/21 10:25 Surgeon: Quan Olvera DO Pre Op Diagnosis: cholelithiasis with acute pancreatitis Patient Data Age: 66 Gender: M Height: 1.7 m Weight: 95.8 kg Last Vital Signs Temp 36.9 C 05/25/21 09:47 Pulse 63 05/25/21 09:47 Resp 18 05/25/21 09:47 BP 166/85 H 05/25/21 09:47 Pulse Ox 98 05/25/21 09:47 Allergies Allergy/AdvReac Type Severity Reaction Status Date / Time No Known Allergies Allergy Verified 05/20/21 14:27 Home Medications Medication Instructions Recorded Confirmed Type omeprazole 40 mg capsule,delayed See Rx Instructions .ROUTE 11/27/20 05/20/21 Rx release .COMPLEX #90 cap cholecalciferol (vitamin D3) 125 125 mcg PO DAILY #30 cap 01/15/21 05/20/21 Rx mcg (5,000 unit) capsule gabapentin 300 mg capsule 300 mg PO TID #90 cap 01/15/21 05/20/21 Rx cqnltpydey-jootifalmkydo-ngvwsobv 1 cap PO Q8H PRN #20 cap 04/20/21 05/20/21 Rx 50 mg-300 mg-40 mg capsule allopurinol 100 mg tablet See Rx Instructions .ROUTE 04/22/21 05/20/21 Rx .COMPLEX #90 tablet atorvastatin 40 mg tablet See Rx Instructions .ROUTE 04/22/21 05/20/21 Rx .COMPLEX #90 tablet fluoxetine 20 mg capsule See Rx Instructions .ROUTE 04/22/21 05/20/21 Rx .COMPLEX #90 cap lisinopril 20 mg tablet See Rx Instructions .ROUTE 04/22/21 05/20/21 Rx .COMPLEX #90 tablet hydrocodone 5 mg-acetaminophen 325 1 tablet PO Q6H PRN #15 tablet 05/05/21 05/20/21 Rx mg tablet calcium carbonate-vitamin D3 1 tablet PO DAILY 05/20/21 05/20/21 History [Calcium 500 + D (D3)] multivitamin-iron (hematinic) 1 tablet PO DAILY 05/20/21 05/20/21 History [Complete Vitamin] Patient hx anesthesia problems: none Family hx anesthesia problems: none Results Review: All pre-operative results and documents have been reviewed as part of the pre-operative evaluation. [facility] Past Medical History Medical History Bilateral leg pain Cough Depression Emphysema lung GERD (gastroesophageal reflux disease) Gout Hyperlipidemia Hypertension URBAN (obstructive sleep apnea) Overweight Stomach ulcer Surgical History Surgical History No history of previous surgery Family History Family History Mother Diabetes mellitus Father Lung cancer Social History Social History Smoking packs per day: 3 Smoking cigarettes per day: 60.0 Years smoked: 30 Smoking pack-years: 90.00 Smoking status: Former smoker Tobacco type: cigarettes Second hand tobacco smoke exposure: No Smoking end date: 08/01/00 Alcohol intake: current Drinks per week: 15 Alcohol use details: social Substance use: never Substance use type: does not use Living arrangements: with family Additional living arrangements comments: . Spiritual care concerns: No Anes - Eval Final PreProcedure Day of Procedure 05/25/21 10:25 Patient weight: obese Heart: regular rate and rhythm Lungs: clear to auscultation Airway: Mallampati scale class 1 Neurological: alert and oriented Last oral intake: >/= 8 hours ASA classification: III Emergent: no Anesthetic plan: proceed Anesthesia type and monitoring: general ETT and standard monitoring Results Review: All pre-operative results and documents have been reviewed as part of the pre-operative evaluation. Informed Consent: The patient's anesthetic plan and its attendant risks and benefits were discussed with the patient/family/POA. Questions were solicited and answers provided to the satisfaction of the patient/family/POA.
--- NOTE | 2021-05-25 11:45 | WPDHPUPDATE1 ---
History and Physical Update Update Date/Time: 05/25/21 11:45 History and Physical has been reviewed, including an updated exam of the patient. There are NO changes in the patient's condition. Risks, benefits, and alternatives have been discussed and questions answered. Patient agrees to proceed with procedure.
[2021-05-25] MEDS: ceFAZolin 2 GM/D5W 50 ML 2 GM/50 ML BAG IVPB (11:55)
[2021-05-25] MEDS: BUPIVACAINE HCL 0.5% PF 30 ML VIAL INFILTRATE (12:45)
--- NOTE | 2021-05-25 13:19 | W.PM.PROC2 ---
Procedure Note - Detailed Date of Procedure 05/25/21 Pre-op Diagnosis cholelithiasis with acute pancreatitis Post-op Diagnosis same Procedure Performed Laparoscopic cholecystectomy with intraoperative cholangiogram Surgeon Quan Olvera, DO Anesthesia general and local Indications This is a 66-year-old man who presented with upper abdominal pain for the last month. Had a recent episode of acute pancreatitis and gallbladder was suspected as the cause. He continues to have intermittent pains since then. Discussions were made with the patient about treatment options and decision was made to proceed with laparoscopic cholecystectomy with intraoperative cholangiogram, possible open. Findings Laparoscopic cholecystectomy with cholangiogram was performed. The gallbladder had a few pericholecystic adhesions. The cystic duct appeared normal in size and there did not appear to be any stones at the gallbladder neck or cystic duct. The intraoperative cholangiogram was obtained using Omnipaque contrast. There was no evidence of obstruction, but the radiologist did note a possible small mobile filling defect that could be a stone or gas bubble about 3 mm in size. The gallbladder was removed and sent to the lab for pathology. Description of Procedure Procedure as well as risks, benefits, and alternatives were discussed with patient. Written consent was obtained and placed in chart prior to procedure. The patient was brought back to surgical suite. Patient was placed in supine position on operating table. Time-out was done to confirm patient and procedure. Patient was then intubated by the anesthesia department. Abdomen was prepped and draped in sterile fashion using chlorhexidine prep. 0.5% bupivacaine with epinephrine was infiltrated at each site of incision. An 11 millimeter vertical incision was made at the inferior portion of the umbilicus using a 15 blade scalpel. Blunt dissection was carried down to the linea alba. The linea alba was then incised using a 15 blade scalpel. The peritoneum was then bluntly entered. An 11 millimeter trocar was inserted and carbon dioxide insufflation was used to create a pneumoperitoneum. The camera was inserted and the abdomen was inspected. The patient was placed in reverse Trendelenberg position and rotated slightly to the left. A 5 millimeter incision was made in the epigastric region, and a 5 millimeter trocar was inserted under direct visualization. Two 5 millimeter incisions were made in the right upper quadrant, and two 5 millimeter trocars were inserted under direct visualization. The gallbladder was identified and grasped at the fundus and retracted superiorly. It was then grasped at the infundibulum retracted laterally. Careful dissection around the neck of the gallbladder was performed using blunt dissection with a [place] grasper and hook electrocautery. The cystic duct was identified, and a window was created behind it. The cystic artery was also identified and a window was created behind it. The critical view of safety was identified, visualizing the cystic duct running directly into the neck of the gallbladder, and the cystic artery running directly into the wall of the gallbladder. A 5 millimeter clip six pack loader operator was then used to place 2 clips proximally and 1 clip distally on the cystic artery. It was then transected using endoscopic scissors. The Soto clamp was then placed across the distal neck of the gallbladder, and the Soto catheter was advanced into the distal neck of the gallbladder. Bile was able to be aspirated and the catheter flushed with saline with ease. Patient was then flattened out in bed and the intraoperative cholangiogram was obtained using Omnipaque contrast. The images were sent to Radiology for interpretation. The patient was placed back in reverse Trendelenburg position. A 5 mm Endoclip six pack loader operator was then used to place 2 clips proximally 1 clip distally on the cystic duct and
[2021-05-25] MEDS: fentaNYL CITRATE INJ (*CRX) 100 MCG/2 ML VIAL 25 MCG IV PUSH ×8 (13:27→13:45)
[2021-05-25] MEDS: oxyCODONE HCL (*CRX) 5 MG TAB IR PO (14:30)
== END 2021-05-25 15:13 | disposition home or self-care (01) ==
PROVIDERS: PCP Family Medicine; Visit Provider Surgery
PROC: 0FT44ZZ Resection of Gallbladder, Percutaneous Endoscopic Approach (ICD-10-PCS; CPT 47562; principal; 2021-05-25 12:00)
DX: K80.10 Calculus of gallbladder with chronic cholecystitis without obstruction (principal); K85.90 Acute pancreatitis without necrosis or infection, unspecified; K66.0 Peritoneal adhesions (postprocedural) (postinfection); F32.9 Major depressive disorder, single episode, unspecified; K21.9 Gastro-esophageal reflux disease without esophagitis; J43.9 Emphysema, unspecified; K52.9 Noninfective gastroenteritis and colitis, unspecified; I10 Essential (primary) hypertension; G47.33 Obstructive sleep apnea (adult) (pediatric); K25.9 Gastric ulcer, unspecified as acute or chronic, without hemorrhage or perforation; Z87.891 Personal history of nicotine dependence; E66.9 Obesity, unspecified; Z68.33 Body mass index [BMI] 33.0-33.9, adult; R10.13 Epigastric pain; R10.11 Right upper quadrant pain; R53.83 Other fatigue; R11.0 Nausea; Z86.19 Personal history of other infectious and parasitic diseases
CPT/HCPCS: 47563; 36415; 74300; 82150; 86850; 86900; 86901; 88304; A9270; J0690; J1100; J1885; J2250; J2405; J2704; J2710; J3010; J7120; Q9966

== ENCOUNTER 2021-06-10 09:21 | Outpatient (CLI) | payer MEDICARE, SELFPAY ==
[2021-06-10 09:42] LABS: Estimated Glomerular Filt Rate > 60
== END 2021-06-10 09:22 | disposition home or self-care (01) ==
LOC: CHSLAB 09:24
PROVIDERS: PCP Family Medicine; Visit Provider Surgery
DX: K80.10 Calculus of gallbladder with chronic cholecystitis without obstruction (principal)
CPT/HCPCS: 36415

== ENCOUNTER 2021-06-16 06:38 | Outpatient (CLI) | payer MEDICARE, SELFPAY | END 2021-06-16 06:39 | disposition home or self-care (01) | LOC: CHSIMG 06:40 | PROVIDERS: PCP Family Medicine; Visit Provider Surgery | DX: K80.10 Calculus of gallbladder with chronic cholecystitis without obstruction (principal) | CPT/HCPCS: 99199 ==

== ENCOUNTER 2021-07-07 06:59 | Outpatient (CLI) | payer MEDICARE, SELFPAY ==
--- NOTE | ~2021-07-07 | MR_ITS ---
EXAMINATION: MR MRCP wo/w con/w 3D wo ind DATE: 07/07/2021 09:44 INDICATION: Cholelithiasis with persistent pain 6 weeks post cholecystectomy. TECHNIQUE: Magnetic resonance imaging (MRI) of the abdomen was performed without and with 20 mL Multi suresh intravenous contrast. Sequences included coronal T2-weighted SS-FSE, coronal T2-weighted FS SS- FSE, coronal T2-weighted FS FIESTA, axial T2-weighted FS FIESTA, axial T2-weighted FIESTA, sagittal T 2-weighted SS-FSE, axial T1-weighted dual-echo FSPGR, axial T2-weighted SS-FSE, axial T1-weighted LAV A, axial T2-weighted STIR FSE. Thick-slab T2-weighted FRFSE-XL images were obtained for magnetic reso nance cholangiopancreatography (MRCP). Rotating maximum intensity projection 3-D reconstructions of t he volumetric data were created by the technologist. Postcontrast sequences included a time course of axial T1-weighted LAVA. COMPARISON: CT dated 04/23/2021 and cholangiogram dated 05/25/2021 FINDINGS: ABDOMEN MRI: Heart size is normal. No pericardial or pleural effusion. Gallbladder is not visualized consistent wi th prior cholecystectomy. Liver, pancreas, spleen, bilateral adrenal glands and left kidney are abby l. A few subcentimeter T2 hyperintense nonenhancing cysts in the right kidney. No pathologically enla rged abdominal lymphadenopathy. Visualized portion of the bowels are unremarkable. The vasculature in the abdomen is unremarkable including patent portal, splenic and superior mesenteric veins. Normal b one marrow signal throughout. Mild to moderate lower thoracic spondylosis with chronic minimal anteri or wedging of a few lower thoracic vertebral bodies. ABDOMEN MRCP: No intrahepatic biliary ductal dilation. Normal caliber common bile duct measuring 5 mm . No choledoc holithiasis. The main pancreatic duct is also normal measuring 2 mm at the head of the pancreas and t apering distally to the tail.. IMPRESSION: 1. Unremarkable postcholecystectomy MRCP with no choledocholithiasis or intra-/extrahepatic biliary d uctal dilation Reviewed, dictated and finalized at location B. UCTION RECORDER IMPRESSION: 1. Unremarkable postcholecystectomy MRCP with no choledocholithiasis or intra-/ extrahepatic biliary ductal dilation
== END 2021-07-07 07:00 | disposition home or self-care (01) ==
LOC: CHSIMG 07:00
PROVIDERS: PCP Family Medicine; Visit Provider Surgery
DX: K80.10 Calculus of gallbladder with chronic cholecystitis without obstruction (principal)
CPT/HCPCS: 74183; 76376; A9577

== ENCOUNTER 2021-10-14 14:03 | Inpatient (IN) | payer MEDICARE, SELFPAY ==
[2021-10-14] VITALS (11 sets, daily range): BP systolic 90–124; BP diastolic 50–94; PULSE 92–107; RESP 16–20; TEMP 37.5–38.6; O2SAT 91–96; BMI 34.8
--- NOTE | ~2021-10-14 | CT_ITS ---
EXAMINATION: CTA chest PE protocol DATE: 10/14/2021 16:39 INDICATION: Shortness of breath. TECHNIQUE: Computed tomography angiography (CTA) of the chest was performed with 100 mL Omnipaque-350 intravenous contrast timed to evaluate the pulmonary arteries. Coronal maximum intensity projection 3D-reconstructions were created by the technologist. Automated exposure control and iterative reconst ruction technique were employed. The dose-length product was 618.89 mGy-cm. COMPARISON: CT abdomen and pelvis 04/23/2021 FINDINGS: There is moderate emphysema. There is widespread peripheral septal thickening in the lungs. There is mild scarring at the lung apices. No pleural effusion. The heart size is normal. No pericar dial effusion. There is no pulmonary embolus. There is a small sliding hiatal hernia. There are macdonald es of cholecystectomy. There is kyphosis of thoracic spine with mild chronic anterior wedging of mult iple vertebral bodies and moderate spondylosis. IMPRESSION: 1. No pulmonary embolus. 2. Diffuse lung disease, likely a combination of moderate emphysema and chronic interstitial lung dis ease in a pattern of usual interstitial pneumonia (UIP). 3. Small sliding hiatal hernia. Reviewed, dictated and finalized at location A. IMPRESSION: 1. No pulmonary embolus. 2. Diffuse lung disease, likely a combination of moderate emphysema and chronic interstitial lung disease in a pattern of usual interstitial pneumonia (UIP). 3. Small sliding hiatal hernia.
--- NOTE | ~2021-10-14 | CT_ITS ---
EXAMINATION: CT abdomen pelvis wo con DATE: 10/15/2021 11:44 INDICATION: Upper abdominal pain. Nausea and diarrhea. TECHNIQUE: Computed tomography (CT) of the abdomen and pelvis was performed without intravenous contr ast. Automated exposure control and iterative reconstruction technique were employed. The dose-length product was 1067.38 mGy-cm. COMPARISON: CT abdomen and pelvis 04/23/2021 FINDINGS: The visualized portions of the lung bases demonstrate chronic septal thickening with a sivan pheral predominance, consistent with chronic interstitial lung disease. No bronchiectasis or honeycom mario. No pleural effusion. The heart size is normal. No pericardial effusion. There is a small slidin g hiatal hernia. The liver is normal. The changes of cholecystectomy. The spleen, pancreas, adrenal g lands, and kidneys are normal. There is wall thickening throughout the colon. There are changes of ap pendectomy. There is fat stranding around the colon. There are no pathologically enlarged lymph nodes . There is no free intraperitoneal fluid. There is mild thoracolumbar spondylosis. There is mild business programmer linette anterior wedging of multiple thoracic vertebral bodies. IMPRESSION: 1. Pancolitis. 2. Small sliding hiatal hernia. 3. Chronic interstitial lung disease. Reviewed, dictated and finalized at location A.
--- NOTE | ~2021-10-14 | XR_ITS ---
EXAMINATION: XR chest 1V portable DATE: 10/14/2021 15:00 INDICATION: Shortness of breath, cough, chills and body aches TECHNIQUE: frontal view of the chest was obtained. COMPARISON: Chest radiograph dated 06/23/2020 FINDINGS: Chronic mild reticular opacities in the right mid and bilateral lower lung zones is present with sivan pheral distribution on CT of the abdomen and pelvis dated 08/24/2018 suggesting chronic interstitial l berkley disease. No new airspace opacities, pleural effusion or pneumothorax. The cardiomediastinal silho uette is normal. IMPRESSION: 1. Persistent subtle reticular opacities in the right mid and bilateral lower lung zones and favor ch ronic interstitial lung disease with differential including less likely mild pulmonary edema or pneum onia. Reviewed, dictated and finalized at location A. IMPRESSION: 1. Persistent subtle reticular opacities in the right mid and bilateral lower l berkley zones and favor chronic interstitial lung disease with differential includi ng less likely mild pulmonary edema or pneumonia.
--- NOTE | 2021-10-14 14:43 | ECG_ITS ---
Measurements Intervals [place] Rate: P: [place]: QRS: QRSD: T: QT: QTc: Interpretive Statements SINUS TACHYCARDIA NONSPECIFIC T-WAVE CHANGES NO PRIOR TRACING Electronically Signed On 10-15-2021 14:03:36 CDT by Mariajose Lockwood M.D.
--- NOTE | 2021-10-14 14:43 | ED.SOB ---
HPI - SOB/Dyspnea General Chief Complaint: Upper Respiratory Infection Stated Complaint: had the flu/Cough/stomach pain Time Seen by Provider: 10/14/21 14:43 Source: patient History of Present Illness HPI Narrative: 66-year-old male with a history of smoking, hypertension, dyslipidemia, URBAN, COPD/emphysema, peptic ulcer disease, gout, depression, pancreatitis presents to the ER with a 3 day history of\ -- fever with a T-max of 101? -- cough with mucopurulent sputum -- worsening shortness of breath -- diffuse abdominal pain with diarrhea -- generalized joint pains. MD elicited complaint: shortness of breath and cough Pertinent past history: COPD Onset (ago): day(s) ( Started 3 days ago.) Severity: moderate Exacerbating factors: exertion Relieving factors: rest Known history of: COPD Associated symptoms: fever, cough, sputum production and other ( Diarrhea, abdominal pain or joint pain) Treatment prior to arrival: none Related Data Home oxygen amount: none Home Medications Medication Instructions Recorded Confirmed calcium carbonate-vitamin D3 1 tablet PO DAILY 05/20/21 10/14/21 multivitamin-iron (hematinic) 1 tablet PO DAILY 05/20/21 10/14/21 Allergies Allergy/AdvReac Type Severity Reaction Status Date / Time No Known Allergies Allergy Verified 10/14/21 08:40 Review of Systems Review of Systems: All systems reviewed & are unremarkable except as noted in HPI and below Constitutional: Constitutional: Reports as per HPI, Reports no additional constitutional complaints and Reports fever(s) Eyes: Eyes: Reports as per HPI and Reports no additional eye complaints ENT: Reports system reviewed and no additional complaints, except as documented Cardiovascular: Cardiovascular: Reports as per HPI and Reports no additional cardiovascular complaints Respiratory: Respiratory: Reports chest congestion, Reports cough, Reports dyspnea and Reports wheezing Comments: cough is productive of purulent sputum Gastrointestinal: Gastrointestinal: Reports as per HPI and Reports diarrhea Comments: multiple episodes of diarrhea today. Genitourinary: Genitourinary: Reports no additional male genitourinary complaints Musculoskeletal: Musculoskeletal: Reports arthralgias Integumentary/Breasts: Skin/Breast: Reports system reviewed and no additional complaints, except as docu and Reports as per HPI Neurologic: Reports system reviewed and no additional complaints, except as documented Psychiatric: Psychiatric: Reports no additional psychiatric complaints Endocrine: Endocrine: Reports no additional endocrine complaints Hematologic/Lymphatic: Hematologic/Lymphatic: Reports no additional hematologic/lymphatic complaints Allergic/Immunologic: Allergic/Immunologic: Reports no additional allergic/immunologic complaints PMFSH Past Medical History Medical History Bilateral leg pain Cough Depression Emphysema lung GERD (gastroesophageal reflux disease) Gout Hyperlipidemia Hypertension URBAN (obstructive sleep apnea) Overweight Stomach ulcer Surgical History Surgical History Hx laparoscopic cholecystectomy 05/25/21 LAP ARLINE WITH C Family History Family History Mother Diabetes mellitus Father Lung cancer Social History Social History Smoking packs per day: 3 Smoking cigarettes per day: 60.0 Years smoked: 30 Smoking pack-years: 90.00 Tobacco type: cigarettes Second hand tobacco smoke exposure: No Smoking end date: 08/01/00 Alcohol intake: current Drinks per week: 15 Alcohol use details: social Substance use: never Substance use type: does not use Additional living arrangements comments: . Spiritual care concerns: No Exam Const: General: alert and ill a
[2021-10-14 15:21] LABS: Basophils Absolute Auto 0.05 K/mm3 (0.00-0.10); Basophils Percent Auto 0.6 % (0.0-1.0); Eosinophils Percent Auto 1.1 % (1.0-6.0); Hematocrit 41.8 % (37.0-46.0); Hemoglobin 14.1 g/dL (12.4-15.3); Immature Granulocyte Absolute 0.03 K/mm3 (0.00-0.00); Immature Granulocyte Percent A 0.3 % (0.0-0.0); Lymphocytes Absolute Auto 0.86 K/mm3 (1.10-4.50); Lymphocytes Percent Auto 9.6 % (18.0-42.0); Mean Corpuscular HGB Conc 33.7 g/dL (32.0-36.0); Mean Corpuscular Hemoglobin 31.1 pg (27.0-31.0); Mean Corpuscular Volume 92.3 fL (78.0-102.0); Mean Platelet Volume 10.5 fl (8.7-11.0); Monocytes Absolute Auto 0.71 K/mm3 (0.10-0.90); Monocytes Percent Auto 7.9 % (2.0-11.0); Neutrophils Absolute Auto 7.2 K/mm3 (1.7-7.2); Neutrophils Percent Auto 80.5 % (50.0-70.0); Platelet Count Result 166 K/mm3 (150-420); Red Blood Count 4.53 M/mm3 (4.70-6.10); Red Cell Distribution Width 13.6 % (11.6-14.4)
[2021-10-14 15:33] LABS: INR 1.1; Partial Thromboplastin Time 28.5 SEC (23.90-30.70); Prothrombin Time 11.3 Seconds (9.50-12.10)
[2021-10-14 15:35] LABS: D Dimer 2.53 mg/L (0.19-0.50)
[2021-10-14 15:46] LABS: Alanine Aminotransferase 273 U/L (16-63); Albumin Level 3.5 g/dL (3.4-5.0); Alkaline Phosphatase 152 U/L (46-116); Anion Gap 12 mmol/L (8-16); Aspartate Amino Transferase 391 U/L (15-37); Bilirubin,Total 1.2 mg/dL (0.00-1.00); Blood Urea Nitrogen 15 mg/dL (7-18); Calcium 8.6 mg/dL (8.5-10.1); Carbon Dioxide 25 mmol/L (21-32); Chloride 101 mmol/L (98-108); Estimated CRCL calculation 45 ml/min; Estimated Glomerular Filt Rate 45; Glucose 103 mg/dL (70-99); NT Pro B Type Natriuretic Pept 253 pg/mL (0-125); Osmolality Calculated 286 mOsm/kg (285-295); Potassium 3.4 mmol/L (3.5-5.1); Sodium 138 mmol/L (136-145); Total Protein 7.5 g/dL (6.4-8.2); Troponin I 16.7 ng/L (0.00-60.4)
[2021-10-14 15:47] LABS: Lactic Acid Reflex 1.7 mmol/L (0.4-2.0)
[2021-10-14 16:06] LABS: SARS-CoV-2 RNA PCR Negative (Negative)
[2021-10-14 16:07] LABS: Influenza A QL RT-PCR Negative (Negative); Influenza B QL RT-PCR Negative (Negative)
[2021-10-14] MEDS: LACTATED RINGERS 1,000 ML 999 ML IV CONT (16:19)
--- NOTE | 2021-10-14 16:28 | PC.NURSE ---
pt to xray for chest ct per stretcher
[2021-10-14 16:33] LABS: Lipase 5087 U/L (73-393)
[2021-10-14] MEDS: ACETAMINOPHEN 325 MG TABLET 650 MG PO ×2 (17:01→20:16)
[2021-10-14] MEDS: SODIUM CHLORIDE 0.9% IV 1,000 ML 999 ML IV CONT (17:25)
[2021-10-14] MEDS: IPRATROPIUM 0.5 MG/ALBUTEROL SULFATE 2.5 MG AMPUL.NEB 3 ML INHALATION (17:53)
[2021-10-14] MEDS: ONDANSETRON INJ 4 MG/2 ML VIAL IV PUSH (18:17)
[2021-10-14] MEDS: HYDROmorphone HCL INJ (*CRX) 2 MG/ML VIAL 0.5 MG IV PUSH ×2 (18:18→22:38)
--- NOTE | 2021-10-14 19:41 | ADMGEN ---
This patient, Rigoberto Reardon, was admitted to 2nd Floor Room 205-2. Patient/family oriented to hospital policies and general routines including ID bracelet, bed and alarms, visiting hours, pain management, procedures, bathroom and other care routines, personal items, smoking policy, room service/diet, and visiting hours. Information on how to activate the Rapid Response Team has been discussed. Patient/Family are encouraged to report perceived risks to care and to ask questions if they do not understand what they are told or what they should do.
[2021-10-14] MEDS: LACTATED RINGERS 1,000 ML 150 ML IV CONT (20:12)
--- NOTE | 2021-10-14 22:53 | PC.NURSE ---
Pt stated he has a generalized pain of 9/10, but prn acetaminophen did help ease some orosco symptoms.
[2021-10-15] VITALS (17 sets, daily range): BP systolic 89–126; BP diastolic 63–79; PULSE 80–106; RESP 14–18; TEMP 36.4–38.6; O2SAT 86–99
--- NOTE | 2021-10-15 04:08 | PC.NURSE ---
Juan Lindsey NP, called requesting an update on pt's condition. Information given and new orders received and noted.
[2021-10-15] MEDS: ACETAMINOPHEN 325 MG TABLET 650 MG PO ×3 (04:11→14:26)
[2021-10-15] MEDS: HYDROmorphone HCL INJ (*CRX) 2 MG/ML VIAL 0.5 MG IV PUSH ×2 (04:11→08:46)
--- NOTE | 2021-10-15 04:28 | PC.NURSE ---
Pt stated he had not voided since the morning of 10/14/2021. Gregg GARRETT. placed an order to straight cath Rigoberto, but this headline writer encouraged the pt to try to void before placement and the pt voided dark, yellow urine into urinal. Oxygen was also started on the pt due to a low spO2. The HOB was also raised and pt was educated on the benefits of having the HOB elevated to which he verbalized understanding. Gregg was then notified by the headline writer on the void amount and improvement of spO2 and stated the pt no longer needs a catheter and for respiratory to monitor the pt while he is receiving oxygen.
[2021-10-15] MEDS: LACTATED RINGERS 1,000 ML 150 ML IV CONT (04:41)
[2021-10-15 05:01] LABS: Hematocrit 35.3 % (37.0-46.0); Hemoglobin 11.7 g/dL (12.4-15.3); Mean Corpuscular HGB Conc 33.1 g/dL (32.0-36.0); Mean Corpuscular Volume 93.4 fL (78.0-102.0); Mean Platelet Volume 10.2 fl (8.7-11.0); Platelet Count Result 137 K/mm3 (150-420); Red Blood Count 3.78 M/mm3 (4.70-6.10); Red Cell Distribution Width 13.9 % (11.6-14.4); White Blood Count 8.5 K/mm3 (4.8-10.8)
[2021-10-15 05:18] LABS: Alanine Aminotransferase 245 U/L (16-63); Albumin Level 2.5 g/dL (3.4-5.0); Alkaline Phosphatase 128 U/L (46-116); Anion Gap 11 mmol/L (8-16); Aspartate Amino Transferase 193 U/L (15-37); Bilirubin,Total 1.1 mg/dL (0.00-1.00); Blood Urea Nitrogen 21 mg/dL (7-18); Calcium 7.8 mg/dL (8.5-10.1); Carbon Dioxide 24 mmol/L (21-32); Chloride 103 mmol/L (98-108); Estimated CRCL calculation 34 ml/min; Estimated Glomerular Filt Rate 30; Glucose 92 mg/dL (70-99); Osmolality Calculated 289 mOsm/kg (285-295); Potassium 3.8 mmol/L (3.5-5.1); Sodium 138 mmol/L (136-145); Total Protein 5.9 g/dL (6.4-8.2)
[2021-10-15 05:19] LABS: Lipase 346 U/L (73-393)
[2021-10-15 05:20] LABS: Cholesterol 63 mg/dL (0-200); HDL Direct 41 mg/dL (40-60); LDL Cholesterol Calculated 10 mg/dL (<130); Triglycerides 59 mg/dL (0-150)
--- NOTE | 2021-10-15 06:50 | PC.NURSE ---
Pt ambulated with walker and standby assist to the restroom to have a bm. Pt instructed to call the nurses station when he is finished to help him get set back up with the equipment. Rigoberto verbalized understanding
--- NOTE | 2021-10-15 07:35 | PC.NURSE ---
Patient voided urine when he had 1x diarrhea at 0710. Had large stool. Bladder scan performed after pt. voided,17ml found. VICE PRESIDENT OF DEVELOPMENT notified.
[2021-10-15] MEDS: PANTOPRAZOLE SODIUM IV 40 MG VIAL IV PUSH (08:47)
--- NOTE | 2021-10-15 11:30 | PC.NURSE ---
Patient taken down via wheelchair for CTA by Material Mix Isha.
--- NOTE | 2021-10-15 11:40 | PC.NURSE ---
Patient returned to room from having CTA. Patient transferred back to bed with sba. HOB elevated, call light at side.
[2021-10-15] MEDS: FLUCONAZOLE 200 MG/NACL 100 ML 200 MG/100 ML BAG 100 MG IVPB (11:43)
[2021-10-15] MEDS: SACCHAROMYCES BOULARDII 250 MG CAPSULE PO ×2 (11:44→17:05)
[2021-10-15] MEDS: LACTATED RINGERS 1,000 ML 75 ML IV CONT (13:30)
--- NOTE | 2021-10-15 13:34 | PM.IMHP ---
H&P: HPI History of Present Illness Date/Time: 10/15/21 13:34 this is a 66-year-old male that presented to the emergency room with 3 days of moderate diarrhea and abdominal pain and felt like his joints were hurting. Patient states that he had had a temperature upon arrival he was found to have a 101 temp. Patient was given antipyretic and started on some IV fluids, and IV antibiotics Mr. Reardon has a history of pancreatitis he states that he still drinks approximately twice a week on Mondays and Fridays. Patient complains of some shortness of breath he has a history of COPD he continues to smoke some of his symptoms have been a fever, cough, and some sputum patient's Covid test is negative patient has diarrhea x4 previous day with upper left pain on admissions patient's lactic was 1.7, potassium 3.4, sodium 138, BUN 15, creatinine 1.56, white blood count is 9.9, hemoglobin is 14.1, [place] is 41.8, D-dimer was 253 CTA was negative for PE, AST was 391, ALT is 273, alk phos was 152, proBNP was 253, lipase 5087. Patient was placed on oxygen due to shortness of breath and received a breathing treatment. After review of patient's CT of abdomen and pelvis showing pancolitis I will start patient on oral steroids due to mild amount of pain as well as we will attempt or trial some clear liquids. We will continue with antibiotics some Flagyl and the steroids and continue to monitor Chief Complaint: Abdominal pain, pancreatitis, diarrhea Review of Systems Review of Systems: left upper abdominal pain with Nausea All systems reviewed & are unremarkable except as noted in HPI and below PMFSH Past Medical History Medical History Bilateral leg pain Cough Depression Emphysema lung GERD (gastroesophageal reflux disease) Gout Hyperlipidemia Hypertension URBAN (obstructive sleep apnea) Overweight Stomach ulcer Surgical History Surgical History Hx laparoscopic cholecystectomy 05/25/21 LAP ARLINE WITH [facility] Family History Family History Mother Diabetes mellitus Father Lung cancer Social History Social History Smoking packs per day: 3 Smoking cigarettes per day: 60.0 Years smoked: 30 Smoking pack-years: 90.00 Smoking status: Former smoker Tobacco type: cigarettes Second hand tobacco smoke exposure: No Smoking end date: 08/01/00 Alcohol intake: current Drinks per week: 12 Alcohol use details: social Substance use: never Substance use type: does not use Additional living arrangements comments: . Spiritual care concerns: Yes (Anabaptist) Meds Home Medications and Allergies Home Medications Medication Instructions Recorded Confirmed Type cholecalciferol (vitamin D3) 125 125 mcg PO DAILY #30 cap 01/15/21 10/14/21 Rx mcg (5,000 unit) capsule zwaplqwjzk-wljdobjxkzzlt-uqrobpqv 1 cap PO Q8H PRN #20 cap 04/20/21 10/14/21 Rx 50 mg-300 mg-40 mg capsule allopurinol 100 mg tablet See Rx Instructions .ROUTE 04/22/21 10/14/21 Rx .COMPLEX #90 tablet atorvastatin 40 mg tablet See Rx Instructions .ROUTE 04/22/21 10/14/21 Rx .COMPLEX #90 tablet fluoxetine 20 mg capsule See Rx Instructions .ROUTE 04/22/21 10/14/21 Rx .COMPLEX #90 cap lisinopril 20 mg tablet See Rx Instructions .ROUTE 04/22/21 10/14/21 Rx .COMPLEX #90 tablet calcium carbonate-vitamin D3 1 tablet PO DAILY 05/20/21 10/14/21 History multivitamin-iron (hematinic) 1 tablet PO DAILY 05/20/21 10/14/21 History gabapentin 300 mg capsule 300 mg PO TID 90 Days #270 cap 06/01/21 10/14/21 Rx cholestyramine (with sugar) 4 gram 4 g PO BID #378 g 07/09/21 10/14/21 Rx oral powder omeprazole 40 mg capsule,delayed See Rx Instructions .ROUTE 09/29/21 10/14/21 Rx release .COMPLEX #90 cap Allergies Aller
--- NOTE | 2021-10-15 13:50 | PC.NURSE ---
Patient tolerated clear liquids well. Denies any increase of abdominal pain with foods.
[2021-10-15] MEDS: predniSONE 20 MG TABLET 40 MG PO (14:28)
[2021-10-15 15:16] LABS: Occult Blood Positive (Negative)
[2021-10-15] MEDS: MORPHINE SULFATE (*CRX) 4 MG/ML INJ IV PUSH (17:05)
[2021-10-15] MEDS: GABAPENTIN 300 MG CAPSULE PO (17:05)
[2021-10-16] VITALS (9 sets, daily range): BP systolic 127–149; BP diastolic 61–88; PULSE 71–92; RESP 14–20; TEMP 36.1–37.1; O2SAT 92–98
[2021-10-16] MEDS: MORPHINE SULFATE (*CRX) 4 MG/ML INJ IV PUSH ×2 (00:47→05:04)
[2021-10-16] MEDS: LACTATED RINGERS 1,000 ML 75 ML IV CONT ×2 (05:00→19:05)
[2021-10-16] MEDS: IPRATROPIUM 0.5 MG/ALBUTEROL SULFATE 2.5 MG AMPUL.NEB 3 ML INHALATION (07:35)
--- NOTE | 2021-10-16 07:51 | PM.IMPN ---
Progress Note: A&P Assessment and Plan (1) Pancolitis: Code(s): K51.00 - Ulcerative (chronic) pancolitis without complications Status: Acute Assessment and Plan: CT shows Pancolitis IV fluids lactated Ringer's at 75 Morphine for pain IV azithromycin, Rocephin Flagyl Probiotics N.PO changed to clear liquid Monitor blood sugar Lipase went from 5087-[address] Porter office to discuss any further need for workup he is out of office Dr. Mackay Surgeon ( forestry conservation worker called) Stool Positive for Blood Stool Negative for C-diff, Cryptosporidium, Giardia (2) Acute recurrent pancreatitis: Code(s): K85.90 - Acute pancreatitis without necrosis or infection, unspecified Status: Acute Assessment and Plan: IV fluids lactated Ringer's at 75 Morphine for pain IV azithromycin, Rocephin Flagyl Probiotics Monitor blood sugar CT of abdomen without contrast showed pancolitis patient started on steroids Lipase went from 5087-346 oral vanc contact isolation (3) Acute renal failure (ARF): Qualifiers: Acute renal failure type: unspecified Qualified Code(s): N17.9 - Acute kidney failure, unspecified Code(s): N17.9 - Acute kidney failure, unspecified Status: Acute Assessment and Plan: Creatinine increased from 1.56/15 to 2.20, BUN 21 improving 1.31/23 IV fluids Strict intake and output resolving (4) COPD (chronic obstructive pulmonary disease): Qualifiers: COPD type: COPD with acute exacerbation Qualified Code(s): J44.1 - Chronic obstructive pulmonary disease with (acute) exacerbation Code(s): J44.9 - Chronic obstructive pulmonary disease, unspecified Status: Acute Assessment and Plan: Monitor vitals Oxygen at 2 L wean down Respiratory therapy to monitor As needed breathing treatments CTA showed no blood clots D-dimer was 253 (5) Electrolyte imbalance: Code(s): E87.8 - Other disorders of electrolyte and fluid balance, not elsewhere classified Status: Acute Assessment and Plan: Potassium 3.42 to 3.8...3.4 today will administer oral potassium Sodium 138..137 (6) BMI 33.0-33.9,adult: Code(s): Z68.33 - Body mass index [BMI] 33.0-33.9, adult Status: Acute (7) GERD (gastroesophageal reflux disease): Code(s): K21.9 - Gastro-esophageal reflux disease without esophagitis Status: Acute Assessment and Plan: Protonix Subjective Date/time seen: 10/16/21 07:51 Patient is complaining of increased pain stating the pain is mid upper abdominal pain more toward the left side. Patient states pain is 5/10 but it was worse about 2 hours prior. Patient states he has been drinking water and feels like the diarrhea is not any better. Patient denies any nausea and no vomiting at this time. Call placed to surgery for a conversation regarding patient current condition. We will pull back on the amount of water and liquids patient is drinking until pain resolves. Spoke with Dr. Mackay the surgeon reviewed the chart with him regarding the C. difficile toxin and antigen medications patient was on and plan of care at this time we will continue the patient on oral Flagyl start on oral vancomycin and if symptoms improve we will discharge him home and have him follow-up with [facility] where he had stool implant Exam Narrative: GENERAL:Well-appearing, well-nourished, and in no acute distress. HEAD:Normocephalic, atraumatic. EYES: PERRLA and EOMI. ENT: Nares clear, no rhinorrhea or epistaxis. Mucous membranes moist. CHEST: Clear to auscultation. No respiratory distress. HEART: Regular rate and rhythm.decreased peripheral pulses. ABDOMEN: Soft, tender Left Upper Quad , nondistended, normal active bowel sounds. EXTREMITIES: Normal range of motion. Trace edema bilateral edema. SKIN: Warm, dry, no rash. NEURO: No focal deficits. Alert and oriented x3. Objective Data Vital Signs Vital Signs: V
[2021-10-16 08:18] LABS: Hematocrit 34.2 % (37.0-46.0); Hemoglobin 11.5 g/dL (12.4-15.3); Immature Platelet Fraction Pct 3.6 % (1.0-7.0); Mean Corpuscular HGB Conc 33.6 g/dL (32.0-36.0); Mean Corpuscular Hemoglobin 31.5 pg (27.0-31.0); Mean Corpuscular Volume 93.7 fL (78.0-102.0); Mean Platelet Volume 10.6 fl (8.7-11.0); Platelet Count Result 127 K/mm3 (150-420); Red Blood Count 3.65 M/mm3 (4.70-6.10); Red Cell Distribution Width 14.1 % (11.6-14.4); White Blood Count 7.7 K/mm3 (4.8-10.8)
[2021-10-16 08:30] LABS: Alanine Aminotransferase 152 U/L (16-63); Albumin Level 2.5 g/dL (3.4-5.0); Alkaline Phosphatase 106 U/L (46-116); Anion Gap 8 mmol/L (8-16); Aspartate Amino Transferase 96 U/L (15-37); Bilirubin,Total 0.5 mg/dL (0.00-1.00); Blood Urea Nitrogen 23 mg/dL (7-18); Calcium 8.1 mg/dL (8.5-10.1); Carbon Dioxide 27 mmol/L (21-32); Chloride 102 mmol/L (98-108); Estimated CRCL calculation 56 ml/min; Estimated Glomerular Filt Rate 55; Glucose 93 mg/dL (70-99); Osmolality Calculated 287 mOsm/kg (285-295); Potassium 3.4 mmol/L (3.5-5.1); Sodium 137 mmol/L (136-145); Total Protein 6.4 g/dL (6.4-8.2)
[2021-10-16] MEDS: PANTOPRAZOLE SODIUM IV 40 MG VIAL IV PUSH (08:59)
[2021-10-16] MEDS: ENOXAPARIN 40 MG/0.4 ML SYRINGE SUB-Q (09:00)
[2021-10-16] MEDS: SACCHAROMYCES BOULARDII 250 MG CAPSULE PO ×2 (09:00→17:42)
[2021-10-16] MEDS: methylPREDNISolone SOD SUCC 40 MG VIAL IV PUSH (09:00)
[2021-10-16] MEDS: lisinopriL 20 MG TABLET BY MOUTH (09:00)
[2021-10-16] MEDS: FLUoxetine HCL 20 MG CAPSULE BY MOUTH (09:00)
[2021-10-16] MEDS: allopurinoL 100 MG TABLET BY MOUTH (09:01)
[2021-10-16] MEDS: GABAPENTIN 300 MG CAPSULE PO ×3 (09:01→17:42)
[2021-10-16 10:32] LABS: Lipase 47 U/L (73-393)
[2021-10-16] MEDS: metroNIDAZOLE 250 MG TABLET 500 MG PO ×2 (14:07→21:30)
[2021-10-16] MEDS: VANCOMYCIN HCL 125 MG CAPSULE PO ×2 (17:42→21:30)
[2021-10-16] MEDS: traZODone HCL 50 MG TABLET PO (21:30)
[2021-10-17] VITALS: PULSE 56
[2021-10-17 04:00] VITALS: BP 127/64; PULSE 63; PULSE 70; RESP 18; TEMP 35.9; O2SAT 95
[2021-10-17 05:06] LABS: Hematocrit 33.3 % (37.0-46.0); Immature Platelet Fraction Pct 4.8 % (1.0-7.0); Mean Corpuscular Hemoglobin 31.1 pg (27.0-31.0); Mean Corpuscular Volume 94.1 fL (78.0-102.0); Mean Platelet Volume 11.3 fl (8.7-11.0); Platelet Count Result 128 K/mm3 (150-420); Red Blood Count 3.54 M/mm3 (4.70-6.10); White Blood Count 6.5 K/mm3 (4.8-10.8)
[2021-10-17] MEDS: metroNIDAZOLE 250 MG TABLET 500 MG PO ×3 (05:20→21:56)
[2021-10-17 05:26] LABS: Anion Gap 5 mmol/L (8-16); Blood Urea Nitrogen 18 mg/dL (7-18); Calcium 8.7 mg/dL (8.5-10.1); Carbon Dioxide 29 mmol/L (21-32); Chloride 106 mmol/L (98-108); Estimated CRCL calculation 69 ml/min; Estimated Glomerular Filt Rate > 60; Glucose 125 mg/dL (70-99); Osmolality Calculated 292 mOsm/kg (285-295); Potassium 3.8 mmol/L (3.5-5.1); Sodium 140 mmol/L (136-145)
[2021-10-17 08:00] VITALS: BP 158/82; PULSE 71; RESP 18; TEMP 36.1; O2SAT 94
[2021-10-17] MEDS: methylPREDNISolone SOD SUCC 40 MG VIAL IV PUSH (08:12)
[2021-10-17] MEDS: ENOXAPARIN 40 MG/0.4 ML SYRINGE SUB-Q (08:12)
[2021-10-17] MEDS: lisinopriL 20 MG TABLET BY MOUTH (08:12)
[2021-10-17] MEDS: PANTOPRAZOLE SODIUM IV 40 MG VIAL IV PUSH (08:12)
[2021-10-17] MEDS: allopurinoL 100 MG TABLET BY MOUTH (08:13)
[2021-10-17] MEDS: ACETAMINOPHEN 325 MG TABLET 650 MG PO (08:13)
[2021-10-17] MEDS: FLUoxetine HCL 20 MG CAPSULE BY MOUTH (08:14)
[2021-10-17] MEDS: GABAPENTIN 300 MG CAPSULE PO ×3 (08:14→17:20)
[2021-10-17] MEDS: SACCHAROMYCES BOULARDII 250 MG CAPSULE PO ×2 (08:14→17:20)
[2021-10-17] MEDS: VANCOMYCIN HCL 125 MG CAPSULE PO ×4 (08:15→20:59)
--- NOTE | 2021-10-17 08:40 | PM.IMPN ---
Progress Note: A&P Assessment and Plan (1) Pancolitis: Code(s): K51.00 - Ulcerative (chronic) pancolitis without complications Status: Acute Assessment and Plan: CT shows Pancolitis IV fluids lactated Ringer's at 75 Morphine for pain IV azithromycin, Rocephin Flagyl Probiotics N.PO changed to clear liquid Monitor blood sugar Lipase went from 5087-[address] Porter office to discuss any further need for workup he is out of office Dr. Mackay Surgeon ( audit consultant called) Stool Positive for Blood Stool Negative for C-diff, Cryptosporidium, Giardia Stool PCr for Cdiff obtained today (2) Acute recurrent pancreatitis: Code(s): K85.90 - Acute pancreatitis without necrosis or infection, unspecified Status: Acute Assessment and Plan: IV fluids lactated Ringer's at 75 discontinued today as he is tolerating eating Morphine for pain IV azithromycin, Rocephin Flagyl Probiotics Monitor blood sugar CT of abdomen without contrast showed pancolitis patient started on steroids Lipase went from 5087-346 oral vanc contact isolation (3) Acute renal failure (ARF): Qualifiers: Acute renal failure type: unspecified Qualified Code(s): N17.9 - Acute kidney failure, unspecified Code(s): N17.9 - Acute kidney failure, unspecified Status: Acute Assessment and Plan: Creatinine increased from 1.56/15 to 2.20, BUN 21 improving 1.31/23, 1.06/18 IV fluids discontinued 10/17/2021 Strict intake and output resolving (4) COPD (chronic obstructive pulmonary disease): Qualifiers: COPD type: COPD with acute exacerbation Qualified Code(s): J44.1 - Chronic obstructive pulmonary disease with (acute) exacerbation Code(s): J44.9 - Chronic obstructive pulmonary disease, unspecified Status: Acute Assessment and Plan: Monitor vitals Oxygen at 2 L wean down Respiratory therapy to monitor As needed breathing treatments CTA showed no blood clots D-dimer was 253 (5) Electrolyte imbalance: Code(s): E87.8 - Other disorders of electrolyte and fluid balance, not elsewhere classified Status: Acute Assessment and Plan: Potassium 3.42 to 3.8...3.4... 3.8 Sodium 138..137...140 (6) BMI 33.0-33.9,adult: Code(s): Z68.33 - Body mass index [BMI] 33.0-33.9, adult Status: Acute (7) GERD (gastroesophageal reflux disease): Code(s): K21.9 - Gastro-esophageal reflux disease without esophagitis Status: Acute Assessment and Plan: Protonix Subjective Date/time seen: 10/17/21 08:40 Patient is feeling better and is hungry He has had 1 stool last night and would like to try some regular food today for lunch. I explained to patient that if eh continued to improve without abdominal pain we would discharge him tomorrow on oral medication and he could follow up as a outpatient . Exam Narrative: GENERAL:Well-appearing, well-nourished, and in no acute distress. HEAD:Normocephalic, atraumatic. EYES: PERRLA and EOMI. ENT: Nares clear, no rhinorrhea or epistaxis. Mucous membranes moist. CHEST: Clear to auscultation. No respiratory distress. HEART: Regular rate and rhythm.decreased peripheral pulses. ABDOMEN: Soft, NON-tender Left Upper Quad , nondistended, normal active bowel sounds. EXTREMITIES: Normal range of motion. No edema bilateral edema. SKIN: Warm, dry, no rash. NEURO: No focal deficits. Alert and oriented x3. complains of headache no abdominal pain will advance diet Objective Data Vital Signs Vital Signs: Vital Signs - 24 hr 10/16/21 12:00 10/16/21 16:30 10/16/21 16:45 Temperature 98.7 F 97 F L Pulse Rate 88 73 73 Respiratory Rate 14 18 Blood Pressure 140/72 140/88 Pulse Oximetry 98 96 10/16/21 20:00 10/16/21 23:50 10/17/21 00:00 Temperature 97.6 F 97.6 F Pulse Rate 76 71 56 L Respiratory Rate 18 20 Blood Pressure 132/82 149/77 H Pulse Oximetry 95 95 10/17/21 04:00
[2021-10-17 16:00] VITALS: BP 174/85; PULSE 72; RESP 16; TEMP 36.3; O2SAT 97
[2021-10-17] MEDS: traZODone HCL 50 MG TABLET PO (20:59)
[2021-10-18] VITALS: BP 153/84; PULSE 62; RESP 18; TEMP 36; O2SAT 98
[2021-10-18] MEDS: metroNIDAZOLE 250 MG TABLET 500 MG PO (06:14)
[2021-10-18 08:00] VITALS: BP 156/81; PULSE 54; RESP 16; TEMP 36.7; O2SAT 97
[2021-10-18] MEDS: methylPREDNISolone SOD SUCC 40 MG VIAL IV PUSH (08:08)
[2021-10-18] MEDS: PANTOPRAZOLE SODIUM IV 40 MG VIAL IV PUSH (08:08)
[2021-10-18] MEDS: ENOXAPARIN 40 MG/0.4 ML SYRINGE SUB-Q (08:09)
[2021-10-18] MEDS: GABAPENTIN 300 MG CAPSULE PO (08:12)
[2021-10-18] MEDS: allopurinoL 100 MG TABLET BY MOUTH (08:12)
[2021-10-18] MEDS: lisinopriL 20 MG TABLET BY MOUTH (08:12)
[2021-10-18] MEDS: SACCHAROMYCES BOULARDII 250 MG CAPSULE PO (08:13)
[2021-10-18] MEDS: FLUoxetine HCL 20 MG CAPSULE BY MOUTH (08:13)
[2021-10-18] MEDS: VANCOMYCIN HCL 125 MG CAPSULE PO (08:14)
[2021-10-18 10:04] LABS: Hematocrit 39.1 % (37.0-46.0); Mean Corpuscular HGB Conc 33.2 g/dL (32.0-36.0); Mean Corpuscular Hemoglobin 31.1 pg (27.0-31.0); Mean Corpuscular Volume 93.5 fL (78.0-102.0); Mean Platelet Volume 10.8 fl (8.7-11.0); Platelet Count Result 166 K/mm3 (150-420); Red Blood Count 4.18 M/mm3 (4.70-6.10); Red Cell Distribution Width 14.2 % (11.6-14.4); White Blood Count 10.4 K/mm3 (4.8-10.8)
[2021-10-18 10:14] LABS: Anion Gap 11 mmol/L (8-16); Blood Urea Nitrogen 24 mg/dL (7-18); Calcium 8.7 mg/dL (8.5-10.1); Carbon Dioxide 26 mmol/L (21-32); Chloride 104 mmol/L (98-108); Estimated CRCL calculation 63 ml/min; Estimated Glomerular Filt Rate > 60; Glucose 130 mg/dL (70-99); Osmolality Calculated 298 mOsm/kg (285-295); Potassium 3.3 mmol/L (3.5-5.1); Sodium 141 mmol/L (136-145)
[2021-10-18] MEDS: CHOLESTYRAMINE (W/ SUGAR) 4 GM POWD.PACK PO (10:33)
--- NOTE | 2021-10-18 12:12 | PM.DS ---
DS: Admitting Diagnosis Discharge Date 10/18/2021 Admitting Diagnosis Pancreatitis DS: Discharge Diagnosis Discharge Diagnosis (1) Pancolitis: Code(s): K51.00 - Ulcerative (chronic) pancolitis without complications Status: Acute Assessment and Plan: CT shows Pancolitis IV fluids lactated Ringer's at 75 Morphine for pain IV azithromycin, Rocephin Flagyl Probiotics N.PO changed to clear liquid Eating regular food nothing spicy Monitor blood sugar Lipase went from 5087-[address] Porter office to discuss any further need for workup he is out of office Dr. Mackay Surgeon ( organizational effectiveness consultant called) Stool Positive for Blood Stool Negative for C-diff, Cryptosporidium, Giardia Stool PCr for Cdiff PCR Pending will follow up with PCP (2) Acute recurrent pancreatitis: Code(s): K85.90 - Acute pancreatitis without necrosis or infection, unspecified Status: Acute Assessment and Plan: IV fluids lactated Ringer's at 75 discontinued today as he is tolerating eating Morphine for pain IV azithromycin, Rocephin Flagyl Probiotics Monitor blood sugar CT of abdomen without contrast showed pancolitis patient started on steroids Lipase went from 5087-346 oral vanc contact isolation (3) Acute renal failure (ARF): Qualifiers: Acute renal failure type: unspecified Qualified Code(s): N17.9 - Acute kidney failure, unspecified Code(s): N17.9 - Acute kidney failure, unspecified Status: Acute Assessment and Plan: Creatinine increased from 1.56/15 to 2.20, BUN 21 improving 1.31/23, 1.06/18,24/1.16 IV fluids discontinued 10/17/2021 Strict intake and output resolved (4) COPD (chronic obstructive pulmonary disease): Qualifiers: COPD type: COPD with acute exacerbation Qualified Code(s): J44.1 - Chronic obstructive pulmonary disease with (acute) exacerbation Code(s): J44.9 - Chronic obstructive pulmonary disease, unspecified Status: Acute Assessment and Plan: Monitor vitals Oxygen at 2 L wean down off of oxygen Respiratory therapy to monitor As needed breathing treatments CTA showed no blood clots D-dimer was 253 DS: Summary Hospital Course Reason for hospitalization: Pancreatitis Hospital Course: This is a 66-year-old male that was presented to the emergency room with severe abdominal pain patient was found to be in acute pancreatitis flare which has since resolved. Patient states that he drinks on Mondays and Wednesdays when he watches wrestling. Patient states that he had been having some nausea and vomiting with diarrhea. While here patient was treated with IV fluids, IV Zofran, vancomycin oral, and oral Flagyl. Patient also was started on some steroids to help decrease some of the the swelling from the pancolitis. Patient pain has since resolved although he is still having some diarrhea about once a day at times it can be twice. Patient in the past has had a stool implant due to past medical history of C. difficile. Patient's antigen was negative but was positive so we sent off a PCR that is still pending results should be sent to his primary care provider. Patient instructed to follow-up with his primary care provider as well as he may need to be seen by GI if C. difficile is positive. Patient will go home on oral medications with some pain medication and medication for nausea. While he was here patient stool was positive for blood although his hemoglobin remained stable no blood transfusion was needed. 10/19/[address] De Leon office and informed them of the C-DIFF PCR so they can continue to watch for the test for definitive answer on Cdiff Time Spent with Patient Time attestation: Total time spent providing and/or coordinating discharge services: Time spent: Greater than 30 minutes Exam Narrative: GENERAL:Well-appearing, well-nourished, and in no acute distress. HEAD:Normocephalic, atraumatic. E
--- NOTE | 2021-10-18 12:55 | PC.NURSE ---
Patient discharged to home via private vehicle, accompanied by patient's . Patient transported to [facility] in [facility] accompanied by policy writer typist. Discharge instructions given to patient and . Verbalized understanding. Personal belongings sent with patient.
--- NOTE | 2021-10-19 11:08 | PC.NURSE ---
Spouse states they received and understood the discharge instructions. Spouse also states they all were really, really nice .
== END 2021-10-18 12:55 | disposition home or self-care (01) | DRG 371 ==
LOC: CHSED 18:19 → CHS2ND 18:35
PROVIDERS: Nurse Practitioner Family; Admitting Provider Internal Medicine; Emergency Provider Internal Medicine Critical Care Medicine; PCP Family Medicine; Visit Provider Internal Medicine
DX: A04.72 Enterocolitis due to Clostridium difficile, not specified as recurrent (principal); F32.A Depression, unspecified; Z20.822 Contact with and (suspected) exposure to COVID-19; Z87.891 Personal history of nicotine dependence; K85.90 Acute pancreatitis without necrosis or infection, unspecified; N17.9 Acute kidney failure, unspecified; J44.9 Chronic obstructive pulmonary disease, unspecified; I10 Essential (primary) hypertension; E87.8 Other disorders of electrolyte and fluid balance, not elsewhere classified; E78.5 Hyperlipidemia, unspecified; K27.9 Peptic ulcer, site unspecified, unspecified as acute or chronic, without hemorrhage or perforation; K21.9 Gastro-esophageal reflux disease without esophagitis; M10.9 Gout, unspecified; G47.33 Obstructive sleep apnea (adult) (pediatric); F17.210 Nicotine dependence, cigarettes, uncomplicated
CPT/HCPCS: 36415; 71045; 71275; 74176; 80048; 80053; 80061; 82272; 83605; 83690; 83880; 84484; 85025; 85027; 85055; 85380; 85610; 85730; 87040; 87045; 87177; 87209; 87269; 87272; 87324; 87427; 87493; 87502; 87804; 93005; 94640; 96361; 96365; 96367; 96375; 99285; A9270; C9113; C9803; J0456; J0696; J1170; J1450; J1650; J2270; J2405; J2920; J7030; J7120; J7512; Q9967; U0003; U0005

== ENCOUNTER 2021-10-19 11:08 | Outpatient (CLI) | payer MEDICARE, SELFPAY ==
--- NOTE | ~2021-10-19 | XR_ITS ---
XR chest 2V 10/19/2021 11:41 Indication: Acute pancreatitis Procedure: 2 view chest Comparison: 10/14/2021 Findings: Mildly elevated right diaphragm. No focal air space disease, pulmonary edema, pleural effus ion or suspected pneumothorax. Impression: 1: No acute cardiopulmonary disease. Reviewed, dictated and finalized at location A. Impression: 1: No acute cardiopulmonary disease.
--- NOTE | 2021-10-19 11:11 | ECG_ITS ---
Measurements Intervals [place] Rate: 69 P: 57 NE: 151 QRS: -2 QRSD: 110 T: 19 QT: 393 QTc: 423 Interpretive Statements SINUS RHYTHM MODERATE VOLTAGE CRITERIA FOR LVH, CONSIDER NORMAL VARIANT [MEETS CRITERIA IN ONE OF: R(aVL), S(V1), R(V5), R(V5/V6)+S(V1)] COMPARED TO ECG 04/23/2021 17:33:27 NO SIGNIFICANT CHANGES Electronically Signed On 10-19-2021 15:54:03 CDT by Ryan Hastings M.D.
[2021-10-19 11:29] LABS: Hematocrit 39.7 % (37.0-46.0); Hemoglobin 13.1 g/dL (12.4-15.3); Mean Corpuscular Hemoglobin 30.5 pg (27.0-31.0); Mean Corpuscular Volume 92.5 fL (78.0-102.0); Mean Platelet Volume 10.5 fl (8.7-11.0); Platelet Count Result 200 K/mm3 (150-420); Red Blood Count 4.29 M/mm3 (4.70-6.10); Red Cell Distribution Width 14.3 % (11.6-14.4); White Blood Count 9.8 K/mm3 (4.8-10.8)
[2021-10-19 11:52] LABS: Alanine Aminotransferase 83 U/L (16-63); Albumin Level 2.7 g/dL (3.4-5.0); Alkaline Phosphatase 100 U/L (46-116); Amylase 117 U/L (25-115); Anion Gap 7 mmol/L (8-16); Aspartate Amino Transferase 28 U/L (15-37); Bilirubin,Total 0.3 mg/dL (0.00-1.00); Blood Urea Nitrogen 22 mg/dL (7-18); Carbon Dioxide 26 mmol/L (21-32); Chloride 106 mmol/L (98-108); Estimated Glomerular Filt Rate > 60; Glucose 81 mg/dL (70-99); Lipase 826 U/L (73-393); Osmolality Calculated 290 mOsm/kg (285-295); Potassium 3.2 mmol/L (3.5-5.1); Sodium 139 mmol/L (136-145); Total Protein 6.6 g/dL (6.4-8.2)
[2021-10-19 12:03] LABS: Troponin I 189.7 ng/L (0.00-60.4)
== END 2021-10-19 11:09 | disposition home or self-care (01) ==
LOC: CHSLAB 11:11
PROVIDERS: PCP Family Medicine; Visit Provider Family Medicine
DX: K85.90 Acute pancreatitis without necrosis or infection, unspecified (principal); I10 Essential (primary) hypertension; Z86.19 Personal history of other infectious and parasitic diseases
CPT/HCPCS: 36415; 71046; 80053; 82150; 83605; 83690; 84484; 85027; 93005

== ENCOUNTER 2021-10-19 13:03 | Observation (INO) | payer MEDICARE, SELFPAY ==
[2021-10-19] VITALS (28 sets, daily range): BP systolic 127–182; BP diastolic 66–98; PULSE 52–76; RESP 7–22; TEMP 36.4–36.6; O2SAT 94–100; BMI 35.6; BMI 36.1
--- NOTE | ~2021-10-19 | NM_ITS ---
EXAMINATION: NM adri stress w perfusion DATE: 10/21/2021 10:29 INDICATION: Elevated troponin. Chest pain. TECHNIQUE: Rest images were obtained following intravenous administration of 10.6 mCi Tc99m tetrofosm in (Myoview). The patient was infused intravenously with Lexiscan (Regadenoson). Then, 33 mCi Tc99m t etrofosmin (Myoview) was administered intravenously, and stress images were obtained. Data was recons tructed into short axis and horizontal and vertical long axis SPECT images. Gated SPECT images were a lso obtained. COMPARISON: None. FINDINGS: There is no definite reversible or fixed perfusion abnormality to suggest ischemia or infar ction. There is normal left ventricular chamber size, wall motion and ejection fraction. Left ventr icular ejection fraction measures 57%. IMPRESSION: 1. Normal myocardial perfusion at rest and during stress. 2. Left ventricular ejection fraction measuring 57%. Reviewed, dictated and finalized at location A.
--- NOTE | ~2021-10-19 | US_ITS ---
EXAMINATION:US venous doppler LE BI INDICATION:Leg edema TECHNIQUE: Multiple grayscale, color flow and Doppler images of the right and left lower extremity de ep venous systems were obtained and reviewed. COMPARISON:No prior studies for comparison. FINDINGS: The common femoral, superficial femoral and popliteal veins demonstrate normal respiratory variation, augmentation and compressibility. Color flow is also seen within the posterior tibial, pe roneal, greater saphenous and profunda veins. IMPRESSION: 1: No lower extremity deep venous thrombosis. Reviewed, dictated and finalized at location A.
--- NOTE | ~2021-10-19 | XR_ITS ---
EXAMINATION: XR chest 2V DATE: 10/19/2021 13:36 INDICATION: Chest pain TECHNIQUE: PA and lateral views of the chest are obtained. COMPARISON: 1136 hours today FINDINGS: The lungs are free of acute opacities. There is no pleural effusion or pneumothorax. The ca rdiomediastinal silhouette is normal. There is moderate thoracic spondylosis. IMPRESSION: 1. No acute cardiopulmonary abnormality. Reviewed, dictated and finalized at location B.
--- NOTE | 2021-10-19 13:05 | ECG_ITS ---
Measurements Intervals [place] Rate: 64 P: 50 CA: 149 QRS: -7 QRSD: 110 T: 31 QT: 402 QTc: 415 Interpretive Statements SINUS RHYTHM WITHIN NORMAL LIMITS COMPARED TO ECG 10/19/2021 11:24:10 NO SIGNIFICANT CHANGES Electronically Signed On 10-19-2021 15:49:39 CDT by Ryan Hastings M.D.
[2021-10-19 13:40] LABS: Basophils Percent Auto 0.1 % (0.2-1.2); Eosinophils Absolute Auto 0.1 K/mm3 (0-0.3); Eosinophils Percent Auto 1.1 % (0-4.4); Hematocrit 40.3 % (42.0-52.0); Hemoglobin 13.6 g/dL (14.0-18.0); Immature Granulocyte Absolute 0.89 K/mm3 (0.00-0.031); Immature Granulocyte Percent A 9.9 % (0-0.5); Lymphocytes Absolute Auto 3.06 K/mm3 (0.9-3.2); Lymphocytes Percent Auto 34.1 % (18.3-44.2); Mean Corpuscular HGB Conc 33.7 g/dl (32-36); Mean Corpuscular Hemoglobin 30.9 pg (26-34); Mean Corpuscular Volume 91.6 fl (80-100); Mean Platelet Volume 10.5 fl (7.4-10.4); Monocytes Absolute Auto 1.2 K/mm3 (0.1-0.6); Monocytes Percent Auto 13.5 % (2.6-8.5); Neutrophils Absolute Auto 3.7 K/mm3 (1.3-6.7); Neutrophils Percent Auto 41.3 % (45.5-73.1); Nucleated Red Blood Cells Perc 0.3 % (0.0-0.2); Platelet Count Result 185 k/mm3 (150-375); Red Cell Distribution Width 14.2 % (11.5-14.5)
[2021-10-19 13:50] LABS: INR 1.1; Partial Thromboplastin Time 28.1 SECONDS (22.3-36.8); Prothrombin Time 13.4 Seconds (11.1-14.7)
[2021-10-19 13:53] LABS: Alanine Aminotransferase 78 U/L (4-50); Albumin Level 3.6 g/dL (3.5-5.1); Alkaline Phosphatase 107 U/L (38-126); Anion Gap 4 mmol/L (8-16); Aspartate Amino Transferase 45 U/L (17-59); Bilirubin,Total 0.3 mg/dL (0.2-1.3); Blood Urea Nitrogen 20 mg/dL (9-20); Calcium 8.8 mg/dL (8.4-10.2); Carbon Dioxide 29 mmol/L (22-30); Chloride 106 mmol/L (98-107); Estimated CRCL calculation 74 ml/min; Estimated Glomerular Filt Rate > 60; Glucose 89 mg/dL (65-110); Lipase 814 U/L (23-300); Potassium 3.2 mmol/L (3.4-5.0); Sodium 139 mmol/L (137-145)
[2021-10-19 14:14] LABS: Troponin I 0.118 ng/mL (0.000-0.034)
[2021-10-19] MEDS: ASPIRIN 81 MG CHEWABLE TABLET 324 MG PO (14:40)
--- NOTE | 2021-10-19 15:04 | ED.CHESTPAIN ---
HPI - Chest Pain General Chief Complaint: Chest Pain Stated Complaint: Chest Pain Time Seen by Provider: 10/19/21 15:03 Source: patient and family Mode of arrival: ambulatory Limitations: no limitations History of Present Illness HPI narrative: Patient 66 years old white male woke up this morning with some aching pain across lower chest bilaterally, probably worse with coughing. Associated with shortness of breath. Patient was hospitalized at the [facility] for 5 days and got discharged yesterday with acute pancreatitis. Patient was told that his pancreatitis is secondary to alcoholism. History of cholecystectomy., COPD, hyperlipidemia and hypertension. Also history of depression. Patient reports slight edema of the lower extremities noticed over the last 24 hours. Patient was seen by his family physician this morning for follow-up, had blood work-up and EKG and was told to go to the emergency room immediately because he is probably having a heart attack. Related Data Home Medications Medication Instructions Recorded Confirmed calcium carbonate-vitamin D3 1 tablet PO DAILY 05/20/21 10/14/21 multivitamin-iron (hematinic) 1 tablet PO DAILY 05/20/21 10/14/21 Allergies Allergy/AdvReac Type Severity Reaction Status Date / Time amoxicillin [From Augmentin] Allergy Unknown Verified 10/19/21 08:14 clavulanic acid Allergy Unknown Verified 10/19/21 08:14 [From Augmentin] Review of Systems Review of Systems: CONSTITUTIONAL: Denies fever, chills, or sweats. EYES: Denies visual changes, redness, or discharge. ENT: Denies rhinorrhea, congestion, sore throat, or otalgia. CARDIOVASCULAR: Chest pain and shortness of breath RESPIRATORY: Denies cough or dyspnea. GASTROINTESTINAL: Denies abdominal pain, nausea, vomiting, or diarrhea. GENITOURINARY: Denies dysuria or hematuria. SKIN: Edema lower extremities MUSCULOSKELETAL: Denies back pain, joint pain, or myalgia. NEUROLOGIC: Denies headache, numbness, or weakness. PSYCHIATRIC: Denies anxiety or depression. [facility] Past Medical History Medical History Bilateral leg pain Cough Depression Emphysema lung GERD (gastroesophageal reflux disease) Gout Hyperlipidemia Hypertension URBAN (obstructive sleep apnea) Overweight Stomach ulcer Surgical History Surgical History Hx laparoscopic cholecystectomy 05/25/21 LAP ARLINE WITH [facility] Family History Family History Mother Diabetes mellitus Father Lung cancer Social History Social History Smoking packs per day: 3 Smoking cigarettes per day: 60.0 Years smoked: 30 Smoking pack-years: 90.00 Tobacco type: cigarettes Second hand tobacco smoke exposure: No Smoking end date: 08/01/00 Alcohol intake: current Drinks per week: 12 Alcohol use details: social Substance use: never Substance use type: does not use Additional living arrangements comments: . Spiritual care concerns: Yes (Pentecostalism) Exam Narrative: General appearance: Well-developed, well-nourished Skin: 1+ edema bilaterally below the knee level Head: Normocephalic, nontraumatic Eyes: Clear conjunctiva ENT: Oropharynx normal, ears normal, nose normal Neck: Supple, nontender Chest and respiratory: Airway patent, no respiratory distress, no accessory muscle use Heart: Regular rate/rhythm Abdomen: Soft, slight diffuse tenderness upper abdomen, no guarding or rebound, quiet bowel sounds, no organomegaly, quiet bowel sounds Vascular: Normal peripheral pulses, normal capillary refill. Musculoskeletal: Normal range of motion, nontender back Neurologic: Alert and oriented ?3, FILE KEEPER is normal as tested, no gross motor deficit
[2021-10-19 15:40] LABS: Lipase 841 U/L (23-300)
[2021-10-19 15:57] LABS: NT Pro B Type Natriuretic Pept 947 pg/mL (5-100)
[2021-10-19] MEDS: POTASSIUM CHLORIDE 20 MEQ TABLET 40 MEQ PO (16:11)
[2021-10-19] MEDS: METOPROLOL TARTRATE 50 MG TAB 25 MG PO (16:11)
[2021-10-19] MEDS: NITROGLYCERIN OINTMENT 1 INCH DOSE TRANSDERM ×2 (16:12→18:47)
--- NOTE | 2021-10-19 16:24 | PC.NURSE ---
Report given to GINNY Weller at this time, pt cleared to come to room 231
--- NOTE | 2021-10-19 16:35 | ADMGEN ---
This patient, Rigoberto Reardon, was admitted to IMU Room 231-01. Patient/family oriented to hospital policies and general routines including ID bracelet, bed and alarms, visiting hours, pain management, procedures, bathroom and other care routines, personal items, smoking policy, room service/diet, and visiting hours. Information on how to activate the Rapid Response Team has been discussed. Patient/Family are encouraged to report perceived risks to care and to ask questions if they do not understand what they are told or what they should do.
--- NOTE | 2021-10-19 16:45 | PM.IMHP ---
H&P: HPI History of Present Illness Date/Time: 10/19/21 16:45 Chief Complaint: Chest pain. Narrative: This is a very pleasant 66-year-old male with with history of emphysema, obstructive sleep apnea, hypertension, hyperlipidemia, gastroesophageal reflux disease, gastric ulcer, Clostridium difficile colitis, and pancreatitis who presented to the emergency department via private vehicle for evaluation of chest pain. He was recently admitted to the [facility] [place] from 10/15 to 10/18/2021 with pancreatitis and pancolitis and was discharged yesterday on p.o. vancomycin and metronidazole. He has minimal discomfort in his abdomen on discharge. Last evening he had 2 fish sandwiches with cheese and had some ice cream for dinner and within an hour so thereafter he once again developed discomfort throughout his upper abdomen with some mild bloating and belching. He slept okay however upon waking this morning he noticed an aching discomfort in the mid to low chest associated with mild shortness of breath and dizziness. He was still having upper abdominal discomfort as well as nausea and he called his primary care provider who was able to see him in the office. Labs were ordered and his troponin came back elevated and he was directed to the emergency department where an elevated troponin was confirmed. He is being admitted in this setting for closer monitoring and Cardiology consultation. At the time my evaluation he is feeling a bit better though he continues to have mild upper abdominal discomfort. Moreover he complains of a cough which he has apparently been ongoing for a week or more and at times he has such significant coughing jags that he has mid chest pain or even mild emesis, mainly phlegm. He has also noticed a small amount of swelling around his ankles and his physician documented a 4 kg weight gain recently. He denies fever, chills, sweats, headache, sinus congestion, rhinorrhea, otalgia, odynophagia, exertional chest pain, pleuritic pain, PND, orthopnea, and vomiting. No sick contacts. Review of Systems Review of Systems: Twelve systems were reviewed. No history of cardiac disease. He continues to have some loose stools but is taking cholestyramine with some benefit. No melena or hematochezia. He denies hematemesis. No hemoptysis. He has never had signs or symptoms of alcohol withdrawal. Except as documented, all other systems were reviewed and are negative. 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 Depression Emphysema of lung Gastric ulcer Gastroesophageal reflux disease Gout Hyperlipidemia Hypertension Obstructive sleep apnea Patient does not use a CPAP. Pancreatitis Peripheral neuropathy Surgical History Surgical History (Updated 10/19/21 @ 20:03 by Kelli Basilio PA-C) History of laparoscopic cholecystectomy (05/25/21) With intraoperative cholangiogram per Dr. Olvera. Family History Family History Mother Diabetes mellitus Father Lung cancer Social History Social History (Updated 10/19/21 @ 20:03 by Kelli Basilio PA-C) Social History: Surrogate decision maker: Samantha Reardon, spouse. Code status: Full code. Smoking packs per day: 3 Smoking cigarettes per day: 60.0 Years smoked: 30 Smoking pack-years: 90.00 Smoking status: Former smoker Tobacco type: cigarettes Second hand tobacco smoke exposure: No Smoking end date: 08/01/00 Alcohol intake: current Drinks per week: 12 Alcohol use details: Patient drinks 6 to 8 cans of beer on Mondays and Fridays. Substance use: never Substance use type: does not use Additional living arrangements comments: . He lives with his in [place]. Additional occupation/education comments: Retired [employer]. S
[2021-10-19 17:13] LABS: Troponin I 0.107 ng/mL (0.000-0.034)
[2021-10-19] MEDS: POTASSIUM CHLORIDE 20 MEQ TABLET.ER 40 MEQ PO (18:48)
[2021-10-19 19:36] LABS: Troponin I 0.098 ng/mL (0.000-0.034)
[2021-10-19] MEDS: SODIUM CHLORIDE 0.9% IV 1,000 ML 100 ML IV CONT (21:02)
[2021-10-19] MEDS: VANCOMYCIN ORAL 125 MG/2.5 ML SYRUP PO (21:50)
[2021-10-19] MEDS: metroNIDAZOLE 250 MG TABLET 500 MG PO (21:50)
[2021-10-20] VITALS (14 sets, daily range): BP systolic 143–158; BP diastolic 58–84; PULSE 48–83; RESP 16–21; TEMP 35.6–36.6; O2SAT 95–100
[2021-10-20 05:30] LABS: Hematocrit 37.4 % (42.0-52.0); Hemoglobin 12.7 g/dL (14.0-18.0); Mean Corpuscular Hemoglobin 31.2 pg (26-34); Mean Corpuscular Volume 91.9 fl (80-100); Mean Platelet Volume 10.3 fl (7.4-10.4); Platelet Count Result 185 k/mm3 (150-375); Red Blood Count 4.07 M/mm3 (4.6-6.20); Red Cell Distribution Width 14.3 % (11.5-14.5)
[2021-10-20 05:42] LABS: Alanine Aminotransferase 75 U/L (4-50); Alkaline Phosphatase 79 U/L (38-126); Anion Gap 3 mmol/L (8-16); Aspartate Amino Transferase 50 U/L (17-59); Bilirubin,Total 0.3 mg/dL (0.2-1.3); Blood Urea Nitrogen 19 mg/dL (9-20); Calcium 8.1 mg/dL (8.4-10.2); Carbon Dioxide 29 mmol/L (22-30); Chloride 108 mmol/L (98-107); Estimated CRCL calculation 73 ml/min; Estimated Glomerular Filt Rate > 60; Glucose 76 mg/dL (65-110); Lipase 622 U/L (23-300); Magnesium 1.9 mg/dL (1.6-2.3); Potassium 4.2 mmol/L (3.4-5.0); Sodium 140 mmol/L (137-145)
--- NOTE | 2021-10-20 06:00 | ECG_ITS ---
Measurements Intervals [place] Rate: 62 P: 49 [place]: 150 QRS: -10 QRSD: 106 T: 32 QT: 406 QTc: 413 Interpretive Statements SINUS RHYTHM EARLY TRANSITION NORMAL ECG COMPARED TO ECG 10/19/2021 13:08:45 NO SIGNIFICANT CHANGES Electronically Signed On 10-20-2021 11:25:31 CDT by Zay Bain M.D.
[2021-10-20] MEDS: metroNIDAZOLE 250 MG TABLET 500 MG PO ×3 (06:08→21:03)
[2021-10-20] MEDS: ACETAMINOPHEN/BUTALBITAL/CAFFEINE 325-50-40 MG TABLET (FIORICET) 1 TAB PO (08:37)
[2021-10-20] MEDS: guaiFENesin/CODEINE (*CRX) 200/20 MG 10 ML SYRUP PO (08:37)
[2021-10-20] MEDS: ASPIRIN 81 MG CHEWABLE TABLET PO (08:39)
[2021-10-20] MEDS: ATORVASTATIN 40 MG TABLET PO (08:39)
[2021-10-20] MEDS: allopurinoL 100 MG TABLET PO (08:39)
[2021-10-20] MEDS: POTASSIUM CHLORIDE 20 MEQ TABLET.ER 40 MEQ PO ×2 (08:39→17:42)
[2021-10-20] MEDS: CHOLECALCIFEROL 1,000 UNITS TABLET 5000 UNITS PO (08:40)
[2021-10-20] MEDS: GABAPENTIN 300 MG CAPSULE PO ×3 (08:40→17:43)
[2021-10-20] MEDS: FLUoxetine HCL 20 MG CAPSULE PO (08:40)
[2021-10-20] MEDS: lisinopriL 20 MG TABLET PO (08:40)
[2021-10-20] MEDS: ENOXAPARIN 40 MG/0.4 ML SYRINGE SUB-Q (08:40)
[2021-10-20] MEDS: PANTOPRAZOLE 40 MG TABLET PO ×2 (08:41→21:03)
[2021-10-20] MEDS: CHOLESTYRAMINE (W/ SUGAR) 4 GM POWD.PACK PO (08:41)
[2021-10-20] MEDS: MULTIVITAMINS /C LUTEIN (CENTRUM SILVER) TABLET *BKC 1 TAB PO (08:41)
[2021-10-20] MEDS: VANCOMYCIN ORAL 125 MG/2.5 ML SYRUP PO ×4 (08:42→21:03)
--- NOTE | 2021-10-20 12:28 | PM.IMPN ---
Progress Note: A&P Assessment and Plan (1) Chest pain: Code(s): R07.9 - Chest pain, unspecified Status: Acute Assessment and Plan: Associated with elevated troponin cardiology consult echo continue aspirin. (2) Elevated troponin: Code(s): R77.8 - Other specified abnormalities of plasma proteins Status: Acute Assessment and Plan: Trend troponin follow cardiology recommendation (3) Pancreatitis: Code(s): K85.90 - Acute pancreatitis without necrosis or infection, unspecified Status: Acute Assessment and Plan: The patient was discharged from an outside hospital yesterday for treatment of the same. He ate fish sandwich is and ice cream for dinner which is probably the etiology of his recurrent pain. Continue liquid diet (4) Clostridium difficile colitis: Code(s): A04.72 - Enterocolitis due to Clostridium difficile, not specified as recurrent Status: Acute Assessment and Plan: continue with p.o. vancomycin. (5) Hypokalemia: Code(s): E87.6 - Hypokalemia Status: Acute Assessment and Plan: Potassium replaced and monitored. (6) Hypertension: Code(s): I10 - Essential (primary) hypertension Status: Chronic Assessment and Plan: Resume home medication. Subjective Date/time seen: 10/20/21 12:28 Interval history: his is a very pleasant 66-year-old male with with history of emphysema, obstructive sleep apnea, hypertension, hyperlipidemia, gastroesophageal reflux disease, gastric ulcer, Clostridium difficile colitis, and pancreatitis who presented to the emergency department via private vehicle for evaluation of chest pain. He was recently admitted to the [facility] from 10/15 to 10/18/2021 with pancreatitis and pancolitis and was discharged yesterday on p.o. vancomycin and metronidazole. Patient presented to the hospital with abdominal pain chest pain abdominal bloating after eating ice cream and fish sandwich also troponin was elevated Patient feels better today Patient denies fever headache chest pain shortness of breath I am seeing the patient for elevated troponin Exam Narrative: Alert Chest decreased air entry bilateral Abdomen nontender nondistended CVS S1 + S2 Lower extremity negative edema Objective Data Vital Signs Vital Signs: Vital Signs - 24 hr 10/19/21 13:11 10/19/21 14:29 10/19/21 14:30 Temperature 97.6 F Pulse Rate 63 69 69 Respiratory Rate 16 7 L 12 Blood Pressure 171/85 H 175/96 H Pulse Oximetry 100 99 99 10/19/21 14:31 10/19/21 14:32 10/19/21 14:45 Temperature Pulse Rate 76 68 62 Respiratory Rate 15 15 15 Blood Pressure 175/96 H Pulse Oximetry 99 99 99 10/19/21 14:46 10/19/21 15:00 10/19/21 15:01 Temperature Pulse Rate 62 62 60 Respiratory Rate 14 13 13 Blood Pressure 182/88 H 176/95 H Pulse Oximetry 96 99 98 10/19/21 15:15 10/19/21 15:16 10/19/21 15:30 Temperature Pulse Rate 63 62 62 Respiratory Rate 13 12 12 Blood Pressure 179/93 H Pulse Oximetry 99 98 97 10/19/21 15:31 10/19/21 15:45 10/19/21 15:46 Temperature Pulse Rate 61 66 62 Respiratory Rate 10 L 22 H 15 Blood Pressure 177/95 H 170/95 H Pulse Oximetry 97 99 96 10/19/21 16:00 10/19/21 16:01 10/19/21 16:02 Temperature Pulse Rate 60 60 58 L Respiratory Rate 12 10 L 13 Blood Pressure 173/97 H Pulse Oximetry 99 98 97 10/19/21 16:11 10/19/21 16:15 10/19/21 16:16 Temperature Pulse Rate 62 58 L 61 Respiratory Rate 12 13 Blood Pressure 173/91 H Pulse Oximetry 99 97 10/19/21 16:53 10/19/21 16:55 10/19/21 18:00 Temperature 97.8 F 97.8 F Pulse Rate 64 64 52 L Respiratory Rate 22 H 22 H Blood Pressure 173/98 H 173/98 H Pulse Oximetry 99 99 10/19/21 19:38 10/19/21 20:00 10/19/21 22:00 Temperature 97.8 F Pulse Rate 54 L 56 L Respiratory Rate 20 Blood Pressure 127/72 Pulse Oximetry 94 100 09/30
[2021-10-20] MEDS: SODIUM CHLORIDE 0.9% IV 1,000 ML 100 ML IV CONT (12:45)
[2021-10-20] MEDS: OMEGA 3 POLYUNSAT FATTY ACIDS 1 GM CAP PO (12:46)
--- NOTE | 2021-10-20 16:02 | PM.CNCAR ---
Assessment and Plan Assessment and plan (1) Elevated troponin: Code(s): R77.8 - Other specified abnormalities of plasma proteins Status: Acute Assessment and Plan: Uncertain as to the etiology of his elevated troponins. He has multiple infections going on at the same time. Certainly could have a small non ST-elevation myocardial infarction but EKG is unremarkable and his chest pain is atypical. Will start him on metoprolol tartrate 25 mg p.o. b.i.d.. Aspirin 81 mg p.o. daily be started also. Will keep him NPO after midnight and order a Lexiscan myocardial perfusion study for ischemic evaluation (2) Chest pain: Qualifiers: Chest pain type: unspecified Qualified Code(s): R07.9 - Chest pain, unspecified Code(s): R07.9 - Chest pain, unspecified Status: Acute Assessment and Plan: Atypical. Will order Lexiscan myocardial perfusion study for ischemic evaluation. NPO after midnight. Will DC IV fluids as I think he is actually volume overloaded from fluid hydration over the past several days while being NPO because of his pancreatitis. (3) Gastroesophageal reflux disease: Code(s): K21.9 - Gastro-esophageal reflux disease without esophagitis Status: Acute (4) Clostridium difficile colitis: Code(s): A04.72 - Enterocolitis due to Clostridium difficile, not specified as recurrent Status: Acute Assessment and Plan: Per hospitalist/GI (5) Hypertension: Code(s): I10 - Essential (primary) hypertension Status: Chronic Assessment and Plan: Above goal. Continue lisinopril and will add metoprolol (6) Acute pancreatitis: Qualifiers: Pancreatitis type: alcohol induced Code(s): K85.90 - Acute pancreatitis without necrosis or infection, unspecified Status: Acute Assessment and Plan: probably related alcohol History of Present Illness History of Present Illness Consult date/time: 10/20/21 16:02 Requesting physician: Gigi Salazar MD Consult reason: chest pain Reason For Visit: N STEMI/hypokalemia/history of pancreatitis Narrative: Date of service 10/20/2021 Reason consultation: Chest pain Requesting provider: Dr. Salazar History patient is a 66-year-old male who has a history of emphysema, COPD, hypertension hyperlipidemia who was recently admitted to [place] for pancreatitis as well as C diff colitis. He was discharged on 10/18/2021 and woke up yesterday morning and shortly after waking up while drinking coffee started developed some upper abdominal pain. Abdominal pain did radiate into his back and slightly up into his lower chest area. He was short of breath but not nauseated. He has been dealing with a lot of coughing recently. He does states that the gave him a lot of IV fluids while in [place]. He has been having a little bit of lower extremity swelling but this has improved. He called his primary care provider who ordered a multitude of labs including a troponin which was minimally elevated. He was then told to come to [facility] because he may be having a heart attack. Patient continues to have some degree of discomfort in his upper abdominal area. Pain has never completely gone away. He does state that he was given nitroglycerin paste that did seem to help. He did eat today. He denies any recent exertional chest pain, syncope, paroxysmal nocturnal dyspnea, orthopnea. No palpitations. Troponins are minimally elevated but downtrending while here. Peak troponin was the initial at 0.118 and has now down trended to 0.098. Review of Systems Review of Systems: All systems reviewed & are unremarkable except as noted in HPI and below Constitutional: Constitutional: Denies weakness Eyes: Eyes: Denies blurry vision ENT: Reports Normal hearing present Cardiovascular: Cardiovascular: Reports chest pain Respiratory: Respiratory: Reports dyspnea Gastrointestinal: Gastrointestinal: Reports a
--- NOTE | 2021-10-20 20:09 | ECHO_ITS ---
Patient Info Name: Rigoberto Reardon Age: 66 years : 1955 Gender: Male Ht: 67 in Wt: 230 lbs BSA: 2.26 m2 HR: 66 bpm BP: 143 / 65 mmHg Heart Rhythm: Sinus Rhythm Technical Quality: Fair Exam Date: 10/20/2021 10:23 AM Exam Location: [facility] Pulmonary Patient Status: Inpatient Admit Date: 10/19/2021 Staff Ordering Physician: Kelli Basilio PA-C Senior Operator: Diane Valdes RDCS Attending Provider: Tanja Santillan MD Referring Physician: Chetna GARZA; Exam Type: CA echo doppler color flow Study Info Indications - ELEVATED TROPONIN I10 - Essential (primary) hypertension R07.9 - Chest pain, unspecified Complete two-dimensional, color flow and Doppler transthoracic echocardiogram is performed. Strain analysis performed. Summary 1. Complete two-dimensional, color flow and Doppler transthoracic echocardiogram is performed. 2. Strain analysis performed. 3. Left ventricular chamber dimension is normal. 4. Left ventricular systolic function is normal, estimated at 60-65%. 5. There is mildly increased left ventricular wall thickness. 6. The left ventricular diastolic function is normal. 7. Global longitudinal strain is abnormal at -13 %. 8. Left atrial chamber dimension is mildly enlarged. 9. There is mild aortic valve regurgitation. 10. There is mild mitral valve regurgitation. 11. There is mild tricuspid valve regurgitation. 12. Mild pulmonary hypertension, estimated pulmonary arterial systolic pressure is 42 mmHg. 13. There is mild pulmonic regurgitation. Left Ventricle Left ventricular chamber dimension is normal. Left ventricular systolic function is normal, estimated at 60-65%. There is mildly increased left ventricular wall thickness. The left ventricular diastolic function is normal. Global longitudinal strain is abnormal at -13 %. Right Ventricle Right ventricular chamber dimension is normal. Right ventricular systolic function is normal. Left Atria Left atrial chamber dimension is mildly enlarged. Right Atria Right atrial chamber dimension is normal. Atrial Septum Intact interatrial septum visualized by color flow imaging. Aortic Valve The aortic valve is trileaflet. There is mild aortic valve sclerosis. There is no aortic valve stenosis. There is mild aortic valve regurgitation. Pulmonic Valve The pulmonic valve is normal. There is no pulmonic valve stenosis. There is mild pulmonic regurgitation. Mitral Valve The mitral valve has normal leaflets. There is no mitral valve stenosis. There is mild mitral valve regurgitation. Tricuspid Valve The tricuspid valve leaflets are normal. There is no significant tricuspid valve stenosis. There is mild tricuspid valve regurgitation. Mild pulmonary hypertension, estimated pulmonary arterial systolic pressure is 42 mmHg. Pericardium/Pleural The pericardium appears normal. There is no pericardial effusion. Inferior Vena Cava Normal inferior vena cava with >50% collapse upon inspiration consistent with normal right atrial pressure, 10 mmHg. Aorta The aortic root size at the sinus of Valsalva is normal. Left Ventricular Outflow Tract Name Value Normal LVOT 2D LVOT Diameter
[2021-10-20] MEDS: METOPROLOL TARTRATE 12.5 MG TABLET PO (21:03)
[2021-10-21] VITALS (13 sets, daily range): BP systolic 137–166; BP diastolic 75–93; PULSE 54–87; RESP 12–20; TEMP 36.2–36.7; O2SAT 96–100
--- NOTE | 2021-10-21 | EST_ITS ---
Patient Info Name: Rigoberto Reardon Age: 66 years : 1955 Gender: Male Ht: 67 in Wt: 227 lbs BSA: 2.25 m2 HR: 62 bpm BP: 161 / 84 mmHg Heart Rhythm: Sinus Rhythm Exam Date: 10/21/2021 8:39 AM Exam Location: [facility] Stress Patient Status: Inpatient Admit Date: 10/19/2021 Staff Ordering Physician: Zay Bain MD Attending Provider: Tanja Santillan MD Exercise Technologist: Karol Tang CT Exercise Physician: Zay Bain MD Exam Type: CA stress adri w NM Study Info Indications R07.9 - Chest pain, unspecified A regadenoson stress test was performed. Summary 1. Please correlate with nuclear medicine images, reported separately. 2. No abnormal ST-T wave changes with lexiscan. Protocol: Lexiscan Stress ECG Details Stage: REST Duration (min): 3 min : 30 sec HR (bpm): 62 SBP (mmHg): 161 DBP (mmHg): 84 Stage: REST Duration (min): 8 min : 2 sec HR (bpm): 62 SBP (mmHg): 161 DBP (mmHg): 84 Stage: STAGE 1 Duration (min): 1 min : 0 sec HR (bpm): 68 SBP (mmHg): 170 DBP (mmHg): 84 Stage: RECOVERY Duration (min): 1 min : 0 sec HR (bpm): 77 SBP (mmHg): 170 DBP (mmHg): 84 Stage: RECOVERY Duration (min): 2 min : 0 sec HR (bpm): 74 SBP (mmHg): 170 DBP (mmHg): 84 Stage: RECOVERY Duration (min): 3 min : 0 sec HR (bpm): 76 SBP (mmHg): 145 DBP (mmHg): 85 Stage: RECOVERY Duration (min): 3 min : 17 sec HR (bpm): 77 SBP (mmHg): 145 DBP (mmHg): 85 Rest HR: 62 bpm Peak HR: 79 bpm Rest Sys BP: 161 mmHg Peak Sys BP: 170 mmHg Max Pred HR: 154 bpm % Max Pred HR: 51 % Target HR: 131 bpm Max RPP: 13,430 bpm*mmHg Target HR Summary: Hemodynamic response to exercise was normal BP Response: Normal blood pressure response Termination Reason: Completed protocol Cardiac Symptoms: None Total Time: 1 min : 0 sec Rest Pfeiffer BP: 84 mmHg Peak Pfeiffer BP: 84 mmHg Total Dose: 0.4 mg Resting ECG Normal sinus rhythm - normal ECG. Stress ECG No abnormal ST/T wave changes with exercise. Arrhythmias None. Report Signatures
[2021-10-21] MEDS: metroNIDAZOLE 250 MG TABLET 500 MG PO ×3 (06:18→21:31)
[2021-10-21] MEDS: METOPROLOL TARTRATE 12.5 MG TABLET PO (07:50)
[2021-10-21] MEDS: ASPIRIN 81 MG CHEWABLE TABLET PO (07:51)
--- NOTE | 2021-10-21 09:29 | PM.PNCARD ---
Progress Note: A&P Assessment and Plan (1) Elevated troponin: Code(s): R77.8 - Other specified abnormalities of plasma proteins Status: Acute Assessment and Plan: Uncertain as to the etiology of his elevated troponins. He has multiple infections going on at the same time. Certainly could have a small non ST-elevation myocardial infarction but EKG is unremarkable and his chest pain is atypical. Await Lexiscan result. Metoprolol was started at 12.5 mg yesterday p.o. b.i.d.. Will increase to 25 mg p.o. b.i.d. today (2) Chest pain: Qualifiers: Chest pain type: unspecified Qualified Code(s): R07.9 - Chest pain, unspecified Code(s): R07.9 - Chest pain, unspecified Status: Acute Assessment and Plan: Atypical. (3) Gastroesophageal reflux disease: Code(s): K21.9 - Gastro-esophageal reflux disease without esophagitis Status: Acute (4) Clostridium difficile colitis: Code(s): A04.72 - Enterocolitis due to Clostridium difficile, not specified as recurrent Status: Acute Assessment and Plan: Per hospitalist/GI (5) Hypertension: Code(s): I10 - Essential (primary) hypertension Status: Chronic Assessment and Plan: Above goal. Continue lisinopril and metoprolol (6) Acute pancreatitis: Qualifiers: Pancreatitis type: alcohol induced Code(s): K85.90 - Acute pancreatitis without necrosis or infection, unspecified Status: Acute Assessment and Plan: probably related alcohol Subjective Date/time seen: 10/21/21 09:29 Interval history: 66-year-old with pancreatitis, C diff and chest pain Date of service 10/21/2021: Seen in the stress lab. He still has some lower sternal/epigastric pain. No shortness of breath Review of Systems Review of Systems: All systems reviewed & are unremarkable except as noted in HPI and below Constitutional: Constitutional: Denies excessive sweating, Denies headache(s) and Denies weakness Eyes: Eyes: Denies blurry vision ENT: Reports Normal hearing present, Denies headache(s) and Denies neck pain Cardiovascular: Cardiovascular: Reports chest pain and Reports dyspnea Respiratory: Respiratory: Reports dyspnea Gastrointestinal: Gastrointestinal: Reports abdominal pain Genitourinary: Genitourinary: Denies dysuria Musculoskeletal: Musculoskeletal: Denies neck pain Integumentary/Breasts: Skin/Breast: Denies dry skin Neurologic: Reports Normal hearing present, Denies headache(s) and Denies weakness Psychiatric: Psychiatric: Denies anxiety Endocrine: Endocrine: Denies excessive sweating Hematologic/Lymphatic: Hematologic/Lymphatic: Denies easy bleeding Allergic/Immunologic: Allergic/Immunologic: Denies GI upset with certain foods Exam Narrative: Patient awake alert oriented. Appears stated age Const: General: comfortable and no acute distress HENMT: General nose exam: Normal nares present Eyes: Sclera: sclerae normal Neck: Neck: supple and no JVD Chest: Other: He does have reproducible lower sternal pain to palpate Resp: Auscultation: clear to auscultation bilaterally Cardio: Rate: regular rate Rhythm: regular rhythm GI: Auscultation: normal bowel sounds Skin: General skin exam: normal color Neuro: Cranial nerves: Yes Normal hearing present Cognition (Neuro): normal cognition Speech: normal speech Extrem: General: normal to inspection and no edema Psych: Affect: normal affect Objective Data Vital Signs Vital Signs: Vital Signs - 24 hr 10/20/21 10:00 10/20/21 12:00 10/20/21 12:57 Temperature 35.6 C L Pulse Rate 70 66 61 Respiratory Rate 20 Blood Pressure 152/84 H Pulse Oximetry 97 10/20/21 14:00 10/20/21 16:00 10/20/21 17:16 Temperature 35.8 C L Pulse Rate 74 83 62 Respiratory Rate 18 Blood Pressure 158/72 H Pulse Oximetry 99 10/20/21 19:47 10/20/21 22:00 10/21/21 00:00 Temperature 36.2 C L
[2021-10-21] MEDS: ENOXAPARIN 40 MG/0.4 ML SYRINGE SUB-Q (10:46)
[2021-10-21] MEDS: MULTIVITAMINS /C LUTEIN (CENTRUM SILVER) TABLET *BKC 1 TAB PO (10:46)
[2021-10-21] MEDS: lisinopriL 20 MG TABLET PO (10:47)
[2021-10-21] MEDS: OMEGA 3 POLYUNSAT FATTY ACIDS 1 GM CAP PO (10:47)
[2021-10-21] MEDS: CHOLECALCIFEROL 1,000 UNITS TABLET 5000 UNITS PO (10:47)
[2021-10-21] MEDS: GABAPENTIN 300 MG CAPSULE PO ×3 (10:48→17:40)
[2021-10-21] MEDS: FLUoxetine HCL 20 MG CAPSULE PO (10:48)
[2021-10-21] MEDS: ATORVASTATIN 40 MG TABLET PO (10:48)
[2021-10-21] MEDS: allopurinoL 100 MG TABLET PO (10:49)
[2021-10-21] MEDS: PANTOPRAZOLE 40 MG TABLET PO ×2 (10:50→21:32)
--- NOTE | 2021-10-21 16:03 | PM.IMPN ---
Progress Note: A&P Additional Plan 66-year-old male with with history of emphysema, obstructive sleep apnea, hypertension, hyperlipidemia, gastroesophageal reflux disease, gastric ulcer, Clostridium difficile colitis, and pancreatitis who presented to the emergency department via private vehicle for evaluation of chest pain. He was recently admitted from the [facility] from 10/15 to 10/18/2021 with pancreatitis and pancolitis on p.o. vancomycin and metronidazole. 1)Chest Pain/Elevated troponin: appreciate cardiology help Lexiscan negative 2)Cdiff Colitis: c/w PO vanco+Flagyl 3)Acute pancreatitis: Not in significant pain Clear liquid diet D/c IV fluids for now 4)DVT ppx: lovenox 5)Code:Full 6)Dispo:pending improvement Time Spent With Patient Time with patient: 15 - 25 minutes Subjective Date/time seen: 10/21/21 16:03 continues to have loose BM, denies chest pain, stress test negative Review of Systems Review of Systems: All systems reviewed & are unremarkable except as noted in HPI and below Constitutional: Constitutional: Reports no additional constitutional complaints Eyes: Eyes: Reports no additional eye complaints ENT: Reports system reviewed and no additional complaints, except as documented Cardiovascular: Cardiovascular: Reports no additional cardiovascular complaints Respiratory: Respiratory: Reports no additional respiratory complaints Gastrointestinal: Gastrointestinal: Reports diarrhea Musculoskeletal: Musculoskeletal: Reports no additional musculoskeletal complaints Psychiatric: Psychiatric: Reports no additional psychiatric complaints Exam Const: General: no acute distress HENMT: Mouth: Yes moist mucous membranes Eyes: Pupils: Equal, round and reactive pupils present Neck: Neck: supple Resp: Effort & Inspection: normal respiratory effort Auscultation: clear to auscultation bilaterally Cardio: Rate: regular rate Rhythm: regular rhythm GI: GI Palp: Yes Soft to palpation Auscultation: normal bowel sounds Skin: General skin exam: normal color Psych: Mental Status: mental status grossly normal Objective Data Vital Signs Vital Signs: Vital Signs - 24 hr 10/20/21 17:16 10/20/21 19:47 10/20/21 22:00 Temperature 96.4 F L 97.1 F L Pulse Rate 62 76 65 Respiratory Rate 18 16 Blood Pressure 158/72 H Pulse Oximetry 99 100 10/21/21 00:00 10/21/21 01:52 10/21/21 04:00 Temperature 97.4 F L 97.9 F Pulse Rate 54 L 55 L 65 Respiratory Rate 16 20 Blood Pressure 137/75 138/93 H Pulse Oximetry 100 99 10/21/21 06:00 10/21/21 07:38 10/21/21 07:50 Temperature 98 F Pulse Rate 65 73 63 Respiratory Rate 12 Blood Pressure 160/76 H Pulse Oximetry 96 10/21/21 08:00 10/21/21 10:00 10/21/21 12:00 Temperature 97.1 F L Pulse Rate 67 61 76 Respiratory Rate 12 Blood Pressure 152/79 H Pulse Oximetry 96 98 10/21/21 14:00 Temperature Pulse Rate 87 Respiratory Rate Blood Pressure Pulse Oximetry Intake/Output Intake/Output: Intake & Output 10/18/21 10/19/21 10/20/21 10/21/21 23:59 23:59 23:59 23:59 Intake Total 240 1960 740 Output Total 450 2200 2400 [facility] -[phone] Meds/Results Medications: Active Medications Generic Name Dose Route Start Last Admin Trade Name Freq PRN Reason Stop Dose Admin Acetaminophen 650 mg 10/19/21 20:14 Acetaminophen 325 Mg Tablet PO Q6H PRN Mild Pain (1-3) or Fever Acetaminophen/Butalbital/Caffeine 1 tab 10/19/21 21:01 10/20/21 08:37 Acetaminophen/Butalbital/Caffeine 325-50-40 Mg Tablet (Fioricet) PO 1 tab Q8H PRN Administration Headache Hydrocodone Bitart/Acetaminophen 1 tab 10/19/21 20:11 Hydrocodone/Acetaminophen (*Crx) 5-325 Mg Tablet PO Q8H PRN pain 4-10 Allopurinol 100 mg 10/20/21 09:00 10/21/21 10:49 Allopurinol 100 Mg Tablet PO 100 mg DAILY MEGAN Administration Aspirin 81 mg 10/20/21 08:00
--- NOTE | 2021-10-21 16:19 | PC.NURSE ---
[facility] flyer was given to patient.
[2021-10-21] MEDS: HYDROcodone/acetaminophen (*CRX) 5-325 MG TABLET 1 TAB PO (19:47)
[2021-10-21] MEDS: METOPROLOL TARTRATE 25 MG TABLET PO (21:33)
[2021-10-22] VITALS (8 sets, daily range): BP systolic 120–146; BP diastolic 71–85; PULSE 55–63; RESP 16–20; TEMP 36.6–36.7; O2SAT 96–98
[2021-10-22] MEDS: ACETAMINOPHEN/BUTALBITAL/CAFFEINE 325-50-40 MG TABLET (FIORICET) 1 TAB PO ×3 (02:19→22:14)
[2021-10-22] MEDS: metroNIDAZOLE 250 MG TABLET 500 MG PO ×3 (06:11→22:14)
[2021-10-22] MEDS: ENOXAPARIN 40 MG/0.4 ML SYRINGE SUB-Q (08:27)
[2021-10-22] MEDS: GABAPENTIN 300 MG CAPSULE PO ×3 (08:28→17:08)
[2021-10-22] MEDS: CHOLECALCIFEROL 1,000 UNITS TABLET 5000 UNITS PO (08:28)
[2021-10-22] MEDS: FLUoxetine HCL 20 MG CAPSULE PO (08:28)
[2021-10-22] MEDS: PANTOPRAZOLE 40 MG TABLET PO ×2 (08:28→22:14)
[2021-10-22] MEDS: METOPROLOL TARTRATE 25 MG TABLET PO ×2 (08:28→22:13)
[2021-10-22] MEDS: OMEGA 3 POLYUNSAT FATTY ACIDS 1 GM CAP PO (08:29)
[2021-10-22] MEDS: ATORVASTATIN 40 MG TABLET PO (08:29)
[2021-10-22] MEDS: lisinopriL 20 MG TABLET PO ×2 (08:29→17:08)
[2021-10-22] MEDS: ASPIRIN 81 MG CHEWABLE TABLET PO (08:29)
[2021-10-22] MEDS: MULTIVITAMINS /C LUTEIN (CENTRUM SILVER) TABLET *BKC 1 TAB PO (08:29)
[2021-10-22] MEDS: allopurinoL 100 MG TABLET PO (08:29)
--- NOTE | 2021-10-22 09:49 | PM.PNCARD ---
Progress Note: A&P Assessment and Plan (1) Elevated troponin: Code(s): R77.8 - Other specified abnormalities of plasma proteins Status: Acute Assessment and Plan: Uncertain as to the etiology of his elevated troponins. He has multiple infections going on at the same time. Certainly could have a small non ST-elevation myocardial infarction but EKG is unremarkable and his chest pain is atypical. Stress test was normal yesterday. No further inpatient cardiac workup needed at this point (2) Chest pain: Qualifiers: Chest pain type: unspecified Qualified Code(s): R07.9 - Chest pain, unspecified Code(s): R07.9 - Chest pain, unspecified Status: Acute Assessment and Plan: Atypical. And reproducible by pushing on his chest. (3) Gastroesophageal reflux disease: Code(s): K21.9 - Gastro-esophageal reflux disease without esophagitis Status: Acute (4) Clostridium difficile colitis: Code(s): A04.72 - Enterocolitis due to Clostridium difficile, not specified as recurrent Status: Acute Assessment and Plan: Per hospitalist/GI (5) Hypertension: Code(s): I10 - Essential (primary) hypertension Status: Chronic Assessment and Plan: Above goal. Will increase his lisinopril to 20 mg p.o. b.i.d. (6) Acute pancreatitis: Qualifiers: Pancreatitis type: alcohol induced Code(s): K85.90 - Acute pancreatitis without necrosis or infection, unspecified Status: Acute Assessment and Plan: probably related alcohol. Does he need GI to see him? Subjective Date/time seen: 10/22/21 09:49 Interval history: 66-year-old with pancreatitis, C diff and chest pain Date of service 10/21/2021: Seen in the stress lab. He still has some lower sternal/epigastric pain. No shortness of breath Date of service 10/22/2021: Still has some lower sternal epigastric pain. No shortness of breath. No swelling Review of Systems Review of Systems: All systems reviewed & are unremarkable except as noted in HPI and below Constitutional: Constitutional: Denies excessive sweating, Denies headache(s) and Denies weakness Eyes: Eyes: Denies blurry vision ENT: Reports Normal hearing present, Denies headache(s) and Denies neck pain Cardiovascular: Cardiovascular: Reports chest pain and Reports dyspnea Respiratory: Respiratory: Reports dyspnea Gastrointestinal: Gastrointestinal: Reports abdominal pain Genitourinary: Genitourinary: Denies dysuria Musculoskeletal: Musculoskeletal: Denies neck pain Integumentary/Breasts: Skin/Breast: Denies dry skin Neurologic: Reports Normal hearing present, Denies headache(s) and Denies weakness Psychiatric: Psychiatric: Denies anxiety Endocrine: Endocrine: Denies excessive sweating Hematologic/Lymphatic: Hematologic/Lymphatic: Denies easy bleeding Allergic/Immunologic: Allergic/Immunologic: Denies GI upset with certain foods Exam Narrative: Patient awake alert oriented. Appears stated age Const: General: comfortable and no acute distress HENMT: General nose exam: Normal nares present Eyes: Sclera: sclerae normal Neck: Neck: supple and no JVD Chest: Other: He does have reproducible lower sternal pain to palpate Resp: Auscultation: clear to auscultation bilaterally Cardio: Rate: regular rate Rhythm: regular rhythm GI: Auscultation: normal bowel sounds Skin: General skin exam: normal color Neuro: Cranial nerves: Yes Normal hearing present Cognition (Neuro): normal cognition Speech: normal speech Extrem: General: normal to inspection and no edema Psych: Affect: normal affect Objective Data Vital Signs Vital Signs: Vital Signs - 24 hr 10/21/21 10:00 10/21/21 12:00 10/21/21 14:00 Temperature 36.2 C L Pulse Rate 61 76 87 Respiratory Rate 12 Blood Pressure 152/79 H Pulse Oximetry 98 10/21/21 16:00 10/21/21 20:00 10/21/21 21:33 Temperature 36.5 C
[2021-10-22] MEDS: HYDROcodone/acetaminophen (*CRX) 5-325 MG TABLET 1 TAB PO (13:36)
--- NOTE | 2021-10-22 15:14 | PM.IMPN ---
Progress Note: A&P Assessment and Plan (1) Chest pain: Code(s): R07.9 - Chest pain, unspecified Status: Acute Assessment and Plan: Associated with elevated troponin cardiology consult echo continue aspirin. Echo 10/20/2021 ejection fraction 60-65% otherwise no significant valvular abnormality mild pulmonary hypertension Stress test 10/21/2021 normal No further cardiac workup Chest pain reproducible/atypical could be from reflux disease (2) Elevated troponin: Code(s): R77.8 - Other specified abnormalities of plasma proteins Status: Acute Assessment and Plan: Flat troponin trend noted (3) Pancreatitis: Code(s): K85.90 - Acute pancreatitis without necrosis or infection, unspecified Status: Acute Assessment and Plan: The patient was discharged from an outside hospital 1 day prior to this admission. He ate fish sandwich is and ice cream for dinner which is probably the etiology of his recurrent pain. Continue liquid diet Advanced diet of diet (4) Clostridium difficile colitis: Code(s): A04.72 - Enterocolitis due to Clostridium difficile, not specified as recurrent Status: Acute Assessment and Plan: continue with p.o. vancomycin. Consistency intermittently watery /loose could be related to the diet he is on will advance diet and enter Definitely improved frequency History of C diff in the past needing fecal transplantation (5) Hypokalemia: Code(s): E87.6 - Hypokalemia Status: Acute Assessment and Plan: Potassium replaced and monitored. (6) Hypertension: Code(s): I10 - Essential (primary) hypertension Status: Chronic Assessment and Plan: Resume home medication. Additional Plan Subjective Date/time seen: 10/22/21 15:14 Interval history: 66-year-old with pancreatitis, C diff and chest pain No further chest pain. Abdominal pain is there but mild. Had 1 episode of diarrhea earlier today which was loose watery. Frequency has come down consistency still watery Review of Systems Review of Systems: All systems reviewed & are unremarkable except as noted in HPI and below Exam Narrative: Const: General: no acute distress comfortable HENMT: Mouth: Yes moist mucous membranes Eyes: Pupils: Equal, round and reactive pupils present Neck: Neck: supple, nontender Resp: Effort & Inspection: normal respiratory effort Auscultation: clear to auscultation bilaterally Cardio: Rate: regular rate Rhythm: regular rhythm GI: GI Palp: Yes Soft to palpation Auscultation: normal bowel sounds, mild tenderness diffusely no guarding or rigidity Skin: General skin exam: normal color Psych: Mental Status: mental status grossly normal Objective Data Vital Signs Vital Signs: Vital Signs - 24 hr 10/21/21 16:00 10/21/21 20:00 10/21/21 21:33 Temperature 97.7 F 98.0 F Pulse Rate 66 72 70 Respiratory Rate 12 16 Blood Pressure 151/75 H 166/76 H Pulse Oximetry 98 96 10/22/21 06:00 10/22/21 08:23 10/22/21 08:28 Temperature 98.1 F 98 F Pulse Rate 55 L 60 60 Respiratory Rate 16 20 Blood Pressure 144/81 H 146/75 H Pulse Oximetry 96 98 Intake/Output Intake/Output: Intake & Output 10/19/21 10/20/21 10/21/21 10/22/21 23:59 23:59 23:59 23:59 Intake Total 240 1960 980 480 Output Total 450 2200 4050 Balance -210 -240 -3070 480 Meds/Results Medications: Active Medications Generic Name Dose Route Start Last Admin Trade Name Freq PRN Reason Stop Dose Admin Acetaminophen 650 mg 10/19/21 20:14 Acetaminophen 325 Mg Tablet PO Q6H PRN Mild Pain (1-3) or Fever Acetaminophen/Butalbital/Caffeine 1 tab 10/19/21 21:01 10/22/21 09:20 Acetaminophen/Butalbital/Caffeine 325-50-40 Mg Tablet (Fioricet) PO 1 tab Q8H PRN Administration Headache Hydrocodone Bitart/Acetaminophen 1 tab 10/19/21 20:11 10/22/21 13:36 Hydrocodone/Acetaminophen (*Cr
[2021-10-23] MEDS: HYDROcodone/acetaminophen (*CRX) 5-325 MG TABLET 1 TAB PO (00:52)
[2021-10-23 04:40] LABS: Basophils Absolute Auto 0.1 K/mm3 (0.0-0.1); Basophils Percent Auto 0.8 % (0.2-1.2); Eosinophils Absolute Auto 0.4 K/mm3 (0-0.3); Eosinophils Percent Auto 5.3 % (0-4.4); Hematocrit 40.2 % (42.0-52.0); Hemoglobin 13.7 g/dL (14.0-18.0); Immature Granulocyte Absolute 0.27 K/mm3 (0.00-0.031); Immature Granulocyte Percent A 3.4 % (0-0.5); Lymphocytes Absolute Auto 2.77 K/mm3 (0.9-3.2); Mean Corpuscular HGB Conc 34.1 g/dl (32-36); Mean Corpuscular Hemoglobin 31.2 pg (26-34); Mean Corpuscular Volume 91.6 fl (80-100); Mean Platelet Volume 10.5 fl (7.4-10.4); Monocytes Absolute Auto 0.6 K/mm3 (0.1-0.6); Monocytes Percent Auto 7.6 % (2.6-8.5); Neutrophils Absolute Auto 3.8 K/mm3 (1.3-6.7); Neutrophils Percent Auto 47.9 % (45.5-73.1); Platelet Count Result 196 k/mm3 (150-375); Red Blood Count 4.39 M/mm3 (4.6-6.20); Red Cell Distribution Width 14.1 % (11.5-14.5); White Blood Count 7.9 K/mm3 (4.5-10.0)
[2021-10-23 04:57] LABS: Alanine Aminotransferase 60 U/L (4-50); Albumin Level 3.2 g/dL (3.5-5.1); Alkaline Phosphatase 73 U/L (38-126); Anion Gap 2 mmol/L (8-16); Aspartate Amino Transferase 40 U/L (17-59); Bilirubin,Total 0.5 mg/dL (0.2-1.3); Blood Urea Nitrogen 16 mg/dL (9-20); Calcium 8.2 mg/dL (8.4-10.2); Carbon Dioxide 31 mmol/L (22-30); Chloride 104 mmol/L (98-107); Estimated CRCL calculation 61 ml/min; Estimated Glomerular Filt Rate > 60; Glucose 106 mg/dL (65-110); Potassium 4.4 mmol/L (3.4-5.0); Sodium 137 mmol/L (137-145)
[2021-10-23] MEDS: metroNIDAZOLE 250 MG TABLET 500 MG PO (05:56)
[2021-10-23 05:58] VITALS: BP 137/75; PULSE 56; RESP 16; TEMP 36.4; O2SAT 100
[2021-10-23 08:00] VITALS: BP 131/84; PULSE 66; RESP 24; TEMP 36; O2SAT 99
[2021-10-23] MEDS: PANTOPRAZOLE 40 MG TABLET PO (09:03)
[2021-10-23 09:04] VITALS: PULSE 66
[2021-10-23] MEDS: ENOXAPARIN 40 MG/0.4 ML SYRINGE SUB-Q (09:04)
[2021-10-23] MEDS: METOPROLOL TARTRATE 25 MG TABLET PO (09:04)
[2021-10-23] MEDS: GABAPENTIN 300 MG CAPSULE PO (09:04)
[2021-10-23] MEDS: allopurinoL 100 MG TABLET PO (09:05)
[2021-10-23] MEDS: ASPIRIN 81 MG CHEWABLE TABLET PO (09:05)
[2021-10-23] MEDS: ATORVASTATIN 40 MG TABLET PO (09:05)
[2021-10-23] MEDS: CHOLECALCIFEROL 1,000 UNITS TABLET 5000 UNITS PO (09:06)
[2021-10-23] MEDS: OMEGA 3 POLYUNSAT FATTY ACIDS 1 GM CAP PO (09:06)
[2021-10-23] MEDS: MULTIVITAMINS /C LUTEIN (CENTRUM SILVER) TABLET *BKC 1 TAB PO (09:06)
[2021-10-23] MEDS: FLUoxetine HCL 20 MG CAPSULE PO (09:06)
[2021-10-23] MEDS: lisinopriL 20 MG TABLET PO (09:09)
--- NOTE | 2021-10-23 10:09 | PM.PNCARD ---
Progress Note: A&P Assessment and Plan (1) Elevated troponin: Code(s): R77.8 - Other specified abnormalities of plasma proteins Status: Acute Assessment and Plan: Uncertain as to the etiology of his elevated troponins. He has multiple infections going on at the same time. Certainly could have a small non ST-elevation myocardial infarction but EKG is unremarkable and his chest pain is atypical. Stress test was normal yesterday. No further inpatient cardiac workup needed at this point (2) Chest pain: Qualifiers: Chest pain type: unspecified Qualified Code(s): R07.9 - Chest pain, unspecified Code(s): R07.9 - Chest pain, unspecified Status: Acute Assessment and Plan: Atypical. And reproducible by pushing on his chest. (3) Gastroesophageal reflux disease: Code(s): K21.9 - Gastro-esophageal reflux disease without esophagitis Status: Acute (4) Clostridium difficile colitis: Code(s): A04.72 - Enterocolitis due to Clostridium difficile, not specified as recurrent Status: Acute Assessment and Plan: Per hospitalist/GI (5) Hypertension: Code(s): I10 - Essential (primary) hypertension Status: Chronic Assessment and Plan: BP is better (6) Acute pancreatitis: Qualifiers: Pancreatitis type: alcohol induced Code(s): K85.90 - Acute pancreatitis without necrosis or infection, unspecified Status: Acute Assessment and Plan: probably related alcohol. Does he need GI to see him? Subjective Date/time seen: 10/23/21 10:09 Interval history: 66-year-old with pancreatitis, C diff and chest pain Date of service 10/21/2021: Seen in the stress lab. He still has some lower sternal/epigastric pain. No shortness of breath Date of service 10/22/2021: Still has some lower sternal epigastric pain. No shortness of breath. No swelling Date of service 10/23/2021: Lower sternal and epigastric pain is better. No swelling or shortness of breath Review of Systems Review of Systems: All systems reviewed & are unremarkable except as noted in HPI and below Constitutional: Constitutional: Denies excessive sweating, Denies headache(s) and Denies weakness Eyes: Eyes: Denies blurry vision ENT: Reports Normal hearing present, Denies headache(s) and Denies neck pain Cardiovascular: Cardiovascular: Reports chest pain and Reports dyspnea Respiratory: Respiratory: Reports dyspnea Gastrointestinal: Gastrointestinal: Reports abdominal pain Genitourinary: Genitourinary: Denies dysuria Musculoskeletal: Musculoskeletal: Denies neck pain Integumentary/Breasts: Skin/Breast: Denies dry skin Neurologic: Reports Normal hearing present, Denies headache(s) and Denies weakness Psychiatric: Psychiatric: Denies anxiety Endocrine: Endocrine: Denies excessive sweating Hematologic/Lymphatic: Hematologic/Lymphatic: Denies easy bleeding Allergic/Immunologic: Allergic/Immunologic: Denies GI upset with certain foods Exam Narrative: Patient awake alert oriented. Appears stated age Const: General: comfortable and no acute distress HENMT: General nose exam: Normal nares present Eyes: Sclera: sclerae normal Neck: Neck: supple and no JVD Chest: Other: No pain to palpate today Resp: Auscultation: clear to auscultation bilaterally Cardio: Rate: regular rate Rhythm: regular rhythm GI: Auscultation: normal bowel sounds Skin: General skin exam: normal color Neuro: Cranial nerves: Yes Normal hearing present Cognition (Neuro): normal cognition Speech: normal speech Extrem: General: normal to inspection and no edema Psych: Affect: normal affect Objective Data Vital Signs Vital Signs: Vital Signs - 24 hr 10/22/21 12:46 10/22/21 17:09 10/22/21 21:00 Temperature Pulse Rate 56 L Respiratory Rate 20 Blood Pressure 133/85 Pulse Oximetry 96 98 96 10/22/21 22:00 10/22/21 22:13 10/23/21 0
--- NOTE | 2021-10-23 10:33 | PM.DS ---
DS: Admitting Diagnosis Discharge Date 10/23/2021 Admitting Diagnosis chest pain DS: Discharge Diagnosis Discharge Diagnosis (1) Chest pain: Code(s): R07.9 - Chest pain, unspecified Status: Acute Assessment and Plan: Associated with elevated troponin cardiology consulted during the visit. started on aspirin and beta-levon Echo 10/20/2021 ejection fraction 60-65% otherwise no significant valvular abnormality mild pulmonary hypertension Stress test 10/21/2021 normal No further cardiac workup Chest pain reproducible/atypical could be from reflux disease. Will continue aspirin 81 mg daily along with beta-levon at discharge (2) Elevated troponin: Code(s): R77.8 - Other specified abnormalities of plasma proteins Status: Acute Assessment and Plan: Flat troponin trend noted (3) Pancreatitis: Code(s): K85.90 - Acute pancreatitis without necrosis or infection, unspecified Status: Acute Assessment and Plan: The patient was discharged from an outside hospital 1 day prior to this admission. He ate fish sandwich is and ice cream for dinner which is probably the etiology of his recurrent pain. Continue liquid diet Advanced diet of diet which he tolerated well (4) Clostridium difficile colitis: Code(s): A04.72 - Enterocolitis due to Clostridium difficile, not specified as recurrent Status: Acute Assessment and Plan: continue with p.o. vancomycin. Consistency intermittently watery /loose could be related to the diet he is on will advance diet and enter Definitely improved frequency History of C diff in the past needing fecal transplantation Will continue on vancomycin and metronidazole for 8 more days to complete 2 weeks course of treatment His bowel movement is getting firmer (5) Hypokalemia: Code(s): E87.6 - Hypokalemia Status: Acute Assessment and Plan: Potassium replaced and monitored. (6) Hypertension: Code(s): I10 - Essential (primary) hypertension Status: Chronic Assessment and Plan: Resume home medication. DS: Summary Hospital Course Hospital Course: see above Time Spent with Patient Time attestation: Total time spent providing and/or coordinating discharge services: 45 minutes Exam Narrative: Const: General: no acute distress comfortable HENMT: Mouth: Yes moist mucous membranes Eyes: Pupils: Equal, round and reactive pupils present Neck: Neck: supple, nontender Resp: Effort & Inspection: normal respiratory effort Auscultation: clear to auscultation bilaterally Cardio: Rate: regular rate Rhythm: regular rhythm GI: GI Palp: Yes Soft to palpation Auscultation: normal bowel sounds, mild tenderness diffusely no guarding or rigidity Skin: General skin exam: normal color Psych: Mental Status: mental status grossly normal DS: Data Data Completed and Pending Completed studies during hospitalization: Exam Type: CA echo doppler color flow Study Info Indications - ELEVATED TROPONIN I10 - Essential (primary) hypertension R07.9 - Chest pain, unspecified Complete two-dimensional, color flow and Doppler transthoracic echocardiogram is performed. Strain analysis performed. Summary 1. Complete two-dimensional, color flow and Doppler transthoracic echocardiogram is performed. 2. Strain analysis performed. 3. Left ventricular chamber dimension is normal. 4. Left ventricular systolic function is normal, estimated at 60-65%. 5. There is mildly increased left ventricular wall thickness. 6. The left ventricular diastolic function is normal. 7. Global longitudinal strain is abnormal at -13 %. 8. Left atrial chamber dimension is mildly enlarged. 9. There is mild aortic valve regurgitation. 10. There is mild mitral valve regurgitation. 11. There is mild tricuspid valve regurgitation. 12. Mild pulmona
== END 2021-10-23 11:30 | disposition home or self-care (01) ==
LOC: ANHED 15:36 → ANHIMU 16:14 → ANHICU 10-21 18:38
PROVIDERS: Emergency Medicine; Physician Assistant; Admitting Provider Internal Medicine; Emergency Provider Emergency Medicine; PCP Family Medicine; Visit Provider Internal Medicine
DX: R07.89 Other chest pain (principal); R77.8 Other specified abnormalities of plasma proteins; K85.90 Acute pancreatitis without necrosis or infection, unspecified; A04.72 Enterocolitis due to Clostridium difficile, not specified as recurrent; E78.5 Hyperlipidemia, unspecified; E87.6 Hypokalemia; G47.33 Obstructive sleep apnea (adult) (pediatric); I10 Essential (primary) hypertension; J43.9 Emphysema, unspecified; R06.02 Shortness of breath; K21.9 Gastro-esophageal reflux disease without esophagitis; Z86.19 Personal history of other infectious and parasitic diseases; Z87.891 Personal history of nicotine dependence
CPT/HCPCS: 36415; 71046; 78452; 80053; 83690; 83735; 83880; 84484; 85025; 85027; 85610; 85730; 93005; 93017; 93306; 93970; 96360; 96361; 96372; 99291; A9270; A9502; G0378; J1650; J2785; J7030

== ENCOUNTER 2021-10-26 14:33 | Outpatient (CLI) | payer MEDICARE, SELFPAY ==
[2021-10-26 14:49] LABS: Hematocrit 43.9 % (37.0-46.0); Hemoglobin 14.6 g/dL (12.4-15.3); Mean Corpuscular HGB Conc 33.3 g/dL (32.0-36.0); Mean Corpuscular Hemoglobin 31.4 pg (27.0-31.0); Mean Corpuscular Volume 94.4 fL (78.0-102.0); Mean Platelet Volume 10.6 fl (8.7-11.0); Platelet Count Result 229 K/mm3 (150-420); Red Blood Count 4.65 M/mm3 (4.70-6.10); Red Cell Distribution Width 14.2 % (11.6-14.4); White Blood Count 7.9 K/mm3 (4.8-10.8)
[2021-10-26 15:26] LABS: Alanine Aminotransferase 57 U/L (16-63); Albumin Level 3.3 g/dL (3.4-5.0); Alkaline Phosphatase 86 U/L (46-116); Anion Gap 8 mmol/L (8-16); Aspartate Amino Transferase 27 U/L (15-37); Bilirubin,Total 0.3 mg/dL (0.00-1.00); Blood Urea Nitrogen 16 mg/dL (7-18); Calcium 8.8 mg/dL (8.5-10.1); Carbon Dioxide 26 mmol/L (21-32); Chloride 103 mmol/L (98-108); Estimated Glomerular Filt Rate 48; Glucose 92 mg/dL (70-99); Lipase 616 U/L (73-393); Osmolality Calculated 285 mOsm/kg (285-295); Potassium 5.1 mmol/L (3.5-5.1); Sodium 137 mmol/L (136-145); Total Protein 6.9 g/dL (6.4-8.2)
== END 2021-10-26 14:34 | disposition home or self-care (01) ==
LOC: CHSLAB 14:34
PROVIDERS: PCP Family Medicine; Visit Provider Family Medicine
DX: K85.90 Acute pancreatitis without necrosis or infection, unspecified (principal)
CPT/HCPCS: 36415; 80053; 83690; 85027

== ENCOUNTER 2021-11-10 13:12 | Outpatient (CLI) | payer MEDICARE, SELFPAY ==
--- NOTE | ~2021-11-10 | US_ITS ---
EXAMINATION: US arterial ankle brachial ind EXAM DATE: 11/10/2021 13:38 INDICATION: I73.9 - Peripheral vascular disease, unspecified. TECHNIQUE: Segmental pressures and plethysmographic and Doppler waveforms of the brachial and lower e xtremity arteries were obtained. There is no prior study for comparison. FINDINGS: Right and left brachial artery pressures of 152 mm Hg and 155 mm Hg, respectively, are concordant (no rmal difference <= 30 mmHg). RIGHT LEG: The ankle-brachial index (UMU) is 1.04 (normal >= 0.9-1). The great toe pressure of 98 mmHg. The lower extremity ratios, segmental pressure gradients as follows; Dorsalis pedis: 1.04 (161 mmHg). Posterior tibial: 0.95 (147 mmHg). (Normal gradients <= 20-30 mmHg between adjacent levels on the same leg or the same levels on the two legs). Arterial waveforms are biphasic. LEFT LEG: The ankle-brachial index (UMU) is 1.05 (normal >= 0.9-1). The great toe pressure of 99 mmHg. The lower extremity ratios, segmental pressure gradients as follows; Dorsalis pedis: 1.01 (157 mmHg). Posterior tibial: 1.05 (162 mmHg). (Normal gradients <= 20-30 mmHg between adjacent levels on the same leg or the same levels on the two legs). Arterial waveforms are monophasic. IMPRESSION: 1. Right ankle-brachial index 1.04, normal. 2. Left ankle-brachial index 1.05, normal. 3. Segmental pressures as above. Reviewed, dictated and finalized at location B.
== END 2021-11-10 13:13 | disposition home or self-care (01) ==
LOC: CHSIMG 13:13
PROVIDERS: PCP Family Medicine; Visit Provider Family Medicine
DX: I73.9 Peripheral vascular disease, unspecified (principal)
CPT/HCPCS: 93922

== ENCOUNTER 2021-12-15 14:28 | Outpatient (CLI) | payer MEDICARE, SELFPAY ==
--- NOTE | ~2021-12-15 | XR_ITS ---
EXAM: XR thoracic spine 3V HISTORY: chronic Pain in Thoracic Spine, NKI . COMPARISON: X-ray chest 10/19/2021. FINDINGS: Vertebral body alignment intact. Exaggerated thoracic kyphosis, with stable multilevel mil d anterior wedge deformities in the midthoracic spine. Multilevel marginal osteophytosis secondary to multilevel degenerative disc disease. No traumatic malalignment or fracture. Visualized lung parench yma is clear. IMPRESSION: No acute fracture or traumatic malalignment in the thoracic spine. Chronic/degenerative c hanges as described above. Reviewed, dictated and finalized at location K. IMPRESSION: No acute fracture or traumatic malalignment in the thoracic spine. Chronic/degenerative changes as described above.
--- NOTE | ~2021-12-15 | XR_ITS ---
EXAM: XR cervical spine min 6V HISTORY: chronic neck pain stemming from Tspine . COMPARISON: None available. FINDINGS: Mild atlantodental degenerative change. Exaggerated cervical lordosis. 2 mm anterolisthesi s at C3-4 and C5-6 that are stable in flexion and extension. Multilevel marginal osteophytosis. Multi level facet hypertrophy/sclerosis. Moderate right and mild left neural foraminal narrowing at C4-5. IMPRESSION: Trace nondynamic listheses at C3-4 and C5-6, likely on a degenerative basis. Moderate rig ht and mild left neural foraminal narrowing at C4-5. Multilevel degenerative disc disease and facet a rthropathy. Reviewed, dictated and finalized at location K. IMPRESSION: Trace nondynamic listheses at C3-4 and C5-6, likely on a degenerati ve basis. Moderate right and mild left neural foraminal narrowing at C4-5. Mult ilevel degenerative disc disease and facet arthropathy.
--- NOTE | ~2021-12-15 | XR_ITS ---
EXAM: XR lumbar spine 2-3V HISTORY: chronic Low back pain . COMPARISON: None available. FINDINGS: 5 nonrib-bearing lumbar-type vertebral bodies. Pedicles intact. Normal vertebral body alig nment. Vertebral body heights preserved. Mild loss of disc height at L4-5 and L5-S1, with multilevel marginal osteophytosis as can be seen with degenerative disc disease. Mild multilevel facet arthropat hy. L3-4 and L4-5 interspinous narrowing. No fracture or dislocation. Atherosclerotic aortic calcific ations without evident aneurysm. IMPRESSION: Mild multilevel degenerative disc disease and facet arthropathy. Reviewed, dictated and finalized at location K.
== END 2021-12-15 14:29 | disposition home or self-care (01) ==
LOC: CHSIMG 14:32
PROVIDERS: PCP Family Medicine
DX: M54.6 Pain in thoracic spine (principal); M54.50 Low back pain, unspecified; M54.2 Cervicalgia
CPT/HCPCS: 72052; 72072; 72100

== ENCOUNTER 2021-12-30 15:27 | Outpatient (NON) | payer MEDICARE, SELFPAY | END 2021-12-30 15:28 | disposition home or self-care (01) | LOC: CHSLAB 15:28 | PROVIDERS: PCP Family Medicine; Visit Provider Family Medicine | DX: N39.0 Urinary tract infection, site not specified (principal) | CPT/HCPCS: 87086 ==

== ENCOUNTER 2022-01-16 06:41 | Outpatient (CLI) | payer MEDICARE, SELFPAY ==
--- NOTE | ~2022-01-16 | MR_ITS ---
EXAMINATION: MR thoracic spine wo con DATE: 01/16/2022 08:43 INDICATION: TECHNIQUE: Magnetic resonance imaging (MRI) of the thoracic spine was performed without intravenous c ontrast. Sagittal localizer T1-weighted FSE of the cervical spine was obtained. Thoracic spine sequen jacoby included sagittal T2-weighted FSE, sagittal T1-weighted FSE, sagittal T2-weighted FS FSE, and axi al T2-weighted FSE. COMPARISON: X-ray thoracic spine 12/15/2021 FINDINGS: Exam limited by motion artifact, aliasing, and signal dropout in the region of interest. Ex aggerated thoracic kyphosis. Multilevel mild anterior wedge deformity spanning T7-T9, without acute m arrow edema. The cord signal and caliber is normal. No significant central canal narrowing. No signif icant neural foraminal narrowing. Multilevel disc narrowing, dehydration, and marginal osteophytosis, without significant disc bulge, protrusion, or extrusion. Multilevel mild facet arthropathy. Simple right renal cyst. Paraspinal muscle atrophy. IMPRESSION: No significant abnormality in the region of interest. Multilevel mild degenerative disc changes and f acet arthropathy. No severe central canal or neural foraminal narrowing. Reviewed, dictated and finalized at location K. IMPRESSION: No significant abnormality in the region of interest. Multilevel mild degenerat macario disc changes and facet arthropathy. No severe central canal or neural jass inal narrowing.
== END 2022-01-16 06:42 | disposition home or self-care (01) ==
LOC: CHSIMG 06:43
PROVIDERS: PCP Family Medicine
DX: M54.6 Pain in thoracic spine (principal)
CPT/HCPCS: 72146

== ENCOUNTER 2022-01-25 14:13 | Outpatient (CLI) | payer MEDICARE, SELFPAY ==
--- NOTE | ~2022-01-25 | DEXA_ITS ---
Bone Density Report Name: EMMY PURVIS Age: 67 Sex: Male Ethnicity: White Date of : 1955 Indication: prior fracture; asthma or emphysema; end stage renal disease; rheumatoid arthritis; Referring Provider: Dillon De Leon Study: Bone densitometry was performed. Exam Date: January 25, 2022 Accession number: [id number] Bone Density: Region BMD T-score Z-score Classification AP Spine(L1-L4) 1.096 0.0 0.9 Normal Femoral Neck (Left) 0.853 -0.6 0.5 Normal Total Hip (Left) 1.066 0.2 0.8 Normal Femoral Neck (Right) 0.814 -0.9 0.2 Normal Total Hip (Right) 0.982 -0.3 0.2 Normal Femoral Neck Mean 0.834 -0.7 0.4 Normal Total Hip Mean 1.024 -0.1 0.5 Normal World Health Organization criteria for BMD impression classify patients as: Normal (T-score at or above -1.0), Osteopenia (T-score between -1.0 and -2.5), or Osteoporosis (T-score at or below -2.5). 10-year Fracture Risk: FRAX not reported because: All T-scores for Spine Total, Hip Total, Femoral Neck at or above -1.0 Prior hip or vertebral fracture Treated for osteoporosis Clinical Information Provided by Patient: Have had a previous hip or vertebral fracture Has had a low trauma fracture Has rheumatoid arthritis Is being treated for osteoporosis Has used the following medications: Vitamin D, Calcium Has the following medical conditions: Asthma or Emphysema, End stage renal disease Patient maximum height was 67 Drinks caffeinated beverages Impression: The patient has normal bone mass. The patient has risk factors, including: previous fracture. Discussion: It is important to ask patients whether they are taking their medications and to encourage continued and appropriate compliance with their osteoporosis therapies to reduce fracture risk. It is also important to review their risk factors and encourage appropriate calcium and vitamin D intakes, exercise, fall prevention and other lifestyle measures. Follow-Up: Consider repeating this study in 2 years to reassess this patient's status, or sooner if there is some new clinical indication. Reported by: Dr. Korey Rivera on 01/25/2022 2:36:00 PM. Reviewed, dictated and finalized at location [facility]
== END 2022-01-25 14:14 | disposition home or self-care (01) ==
LOC: CHSIMG 14:15
PROVIDERS: PCP Family Medicine; Visit Provider Family Medicine
DX: S22.000A Wedge compression fracture of unspecified thoracic vertebra, initial encounter for closed fracture (principal)
CPT/HCPCS: 77080

== ENCOUNTER 2022-02-19 11:29 | Outpatient (CLI) | payer MEDICARE, SELFPAY ==
[2022-02-19 11:45] LABS: Hematocrit 38.1 % (37.0-46.0); Hemoglobin 12.9 g/dL (12.4-15.3); Mean Corpuscular HGB Conc 33.9 g/dL (32.0-36.0); Mean Corpuscular Hemoglobin 31.6 pg (27.0-31.0); Mean Corpuscular Volume 93.4 fL (78.0-102.0); Mean Platelet Volume 10.7 fl (8.7-11.0); Platelet Count Result 163 K/mm3 (150-420); Red Blood Count 4.08 M/mm3 (4.70-6.10); Red Cell Distribution Width 13.3 % (11.6-14.4); White Blood Count 6.9 K/mm3 (4.8-10.8)
[2022-02-19 11:57] LABS: Prothrombin Time 10.9 Seconds (9.50-12.10)
[2022-02-19 12:03] LABS: Lactic Acid 0.4 mmol/L (0.4-2.0)
[2022-02-19 12:26] LABS: Alanine Aminotransferase 33 U/L (16-63); Albumin Level 3.6 g/dL (3.4-5.0); Alkaline Phosphatase 96 U/L (46-116); Anion Gap 8 mmol/L (8-16); Aspartate Amino Transferase 26 U/L (15-37); Bilirubin,Total 0.5 mg/dL (0.00-1.00); Blood Urea Nitrogen 25 mg/dL (7-18); Calcium 9.2 mg/dL (8.5-10.1); Carbon Dioxide 26 mmol/L (21-32); Chloride 104 mmol/L (98-108); Estimated Glomerular Filt Rate 50; Glucose 94 mg/dL (70-99); Lipase 180 U/L (73-393); Osmolality Calculated 290 mOsm/kg (285-295); Potassium 4.7 mmol/L (3.5-5.1); Prostate Specific Antigen 0.6 ng/mL (< OR = 4.0); Sodium 138 mmol/L (136-145)
[2022-02-19 12:28] LABS: CRP < 0.2 mg/dL (0.0-0.9)
== END 2022-02-19 11:30 | disposition home or self-care (01) ==
LOC: CHSLAB 11:31
PROVIDERS: PCP Family Medicine; Visit Provider Family Medicine
DX: R10.9 Unspecified abdominal pain (principal); R35.1 Nocturia; N41.1 Chronic prostatitis
CPT/HCPCS: 36415; 80053; 83605; 83690; 84153; 85027; 85610; 86140

== ENCOUNTER 2022-03-01 01:24 | Day surgery (SDC) | payer MEDICARE, SELFPAY ==
[2022-02-11 13:43] VITALS: BMI 36.6
[2022-03-01 11:13] VITALS: BP 123/75; PULSE 62; RESP 22; TEMP 36.6; O2SAT 97
[2022-03-01] MEDS: LACTATED RINGERS 1,000 ML 150 ML IV CONT (11:15)
--- NOTE | 2022-03-01 11:29 | PM.HPGS ---
History of Present Illness History of Present Illness Consent: Risks, benefits, and alternatives have been discussed and questions answered. Patient agrees to proceed with procedure. Chief complaint: erosive esophagitis, Gerd Narrative: Rigoberto Reardon is a 67 year old male with abdominal pain and nausea, previous history of pancreatitis but could not afford pancreatic enzyme, last EGD showed gastritis and using omeprazole Review of Systems Constitutional: Constitutional: Denies headache(s) and Denies weakness Eyes: Eyes: Denies blurry vision ENT: Reports Normal hearing present, Denies headache(s) and Denies neck pain Cardiovascular: Cardiovascular: Denies chest pain and Denies dyspnea Respiratory: Respiratory: Denies dyspnea Gastrointestinal: Gastrointestinal: Reports no additional gastrointestinal complaints Genitourinary: Genitourinary: Denies dysuria Musculoskeletal: Musculoskeletal: Denies neck pain Integumentary/Breasts: Skin/Breast: Denies dry skin Neurologic: Reports Normal hearing present, Denies headache(s) and Denies weakness Psychiatric: Psychiatric: Denies anxiety Endocrine: Endocrine: Denies change in body appearance Hematologic/Lymphatic: Hematologic/Lymphatic: Denies easy bleeding Allergic/Immunologic: Allergic/Immunologic: Denies urticaria PMFSH Past Medical History Medical History Clostridium difficile colitis 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 Depression Epigastric pain Erosive gastritis Gout Hyperlipidemia Hypertension Obstructive sleep apnea Patient does not use a CPAP. Pancreatitis Peripheral neuropathy Surgical History Surgical History History of laparoscopic cholecystectomy (05/25/21) With intraoperative cholangiogram per Dr. Olvera. Family History Family History Mother Diabetes mellitus Father Lung cancer Social History Social History Social History: Surrogate decision maker: Samantha Reardon, spouse. Code status: Full code. Smoking packs per day: 3 Smoking cigarettes per day: 60.0 Years smoked: 30 Smoking pack-years: 90.00 Smoking status: Former smoker Tobacco type: cigarettes Second hand tobacco smoke exposure: No Smoking end date: 08/01/00 Alcohol intake: current Drinks per week: 12 Alcohol use details: Patient drinks 6 to 8 cans of beer on Mondays and Fridays. Substance use: never Substance use type: does not use Living arrangements: with family Additional living arrangements comments: . He lives with his in [place]. 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 Spiritual care concerns: No Meds Home Medications and Allergies Home Medications Medication Instructions Recorded Confirmed Type cholecalciferol (vitamin D3) 125 125 mcg PO DAILY #30 caps 01/15/21 02/11/22 Rx mcg (5,000 unit) capsule calcium carbonate 500 mg-vitamin 1 tablet PO DAILY 05/20/21 02/11/22 History D3 3.125 mcg (125 unit) tablet multivitamin-iron (hematinic) 1 tablet PO DAILY 05/20/21 02/11/22 History ondansetron 8 mg disintegrating 8 mg PO Q12H PRN nausea and 10/18/21 02/11/22 Rx tablet vomiting #20 tabs Fish Oil 1 cap PO DAILY 10/19/21 02/11/22 History omeprazole 40 mg capsule,delayed 40 mg PO DAILY 10/19/21 02/11/22 History release aspirin 81 mg chewable tablet 81 mg PO DAILY@0800 #30 tabs 10/23/21 02/11/22 Rx (Children's Aspirin) hydrocodone 5 mg-acetaminophen 325 1 tablet PO Q8H PRN pain #14 tabs 10/30/21 02/11/22 Rx mg tablet lisinopril 5 mg tablet See Rx Instructions .Route 12/01/21 02/11/22 Rx .COMPLEX #90 tabs metoprolol tartrate 25 mg tablet 25 mg PO BID 90 days #180 tabs 12/22/21 02/11/22 Rx allopurinol 100 mg tablet See Rx Instructions .Route 12/31
--- NOTE | 2022-03-01 11:31 | WPDANESEPPF ---
Anes - Initial Pre Proc Eval Procedure: Operation Date: 03/01/22 12:30 Proposed Procedures p Esophagogastroduodenoscopy - Camilo Guzman MD Date/Time: 03/01/22 11:31 Surgeon: Camilo Guzman MD Pre Op Diagnosis: erosive esophagitis, Gerd Patient Data Age: 67 Gender: M Height: 1.68 m Weight: 103 kg Last Vital Signs Temp 97.9 F 03/01/22 11:13 Pulse 62 03/01/22 11:13 Resp 22 H 03/01/22 11:13 BP 123/75 03/01/22 11:13 Pulse Ox 97 03/01/22 11:13 O2 Del Method Room Air 03/01/22 11:13 Allergies Allergy/AdvReac Type Severity Reaction Status Date / Time amoxicillin [From Augmentin] Allergy Unknown Verified 03/01/22 11:11 clavulanic acid Allergy Unknown Verified 03/01/22 11:11 [From Augmentin] Home Medications Medication Instructions Recorded Confirmed Type cholecalciferol (vitamin D3) 125 125 mcg PO DAILY #30 caps 01/15/21 02/11/22 Rx mcg (5,000 unit) capsule calcium carbonate 500 mg-vitamin 1 tablet PO DAILY 05/20/21 02/11/22 History D3 3.125 mcg (125 unit) tablet multivitamin-iron (hematinic) 1 tablet PO DAILY 05/20/21 02/11/22 History ondansetron 8 mg disintegrating 8 mg PO Q12H PRN nausea and 10/18/21 02/11/22 Rx tablet vomiting #20 tabs Fish Oil 1 cap PO DAILY 10/19/21 02/11/22 History omeprazole 40 mg capsule,delayed 40 mg PO DAILY 10/19/21 02/11/22 History release aspirin 81 mg chewable tablet 81 mg PO DAILY@0800 #30 tabs 10/23/21 02/11/22 Rx (Children's Aspirin) hydrocodone 5 mg-acetaminophen 325 1 tablet PO Q8H PRN pain #14 tabs 10/30/21 02/11/22 Rx mg tablet lisinopril 5 mg tablet See Rx Instructions .Route 12/01/21 02/11/22 Rx .COMPLEX #90 tabs metoprolol tartrate 25 mg tablet 25 mg PO BID 90 days #180 tabs 12/22/21 02/11/22 Rx allopurinol 100 mg tablet See Rx Instructions .Route 01/18/22 02/11/22 Rx .COMPLEX #90 tabs atorvastatin 40 mg tablet See Rx Instructions .Route 01/18/22 02/11/22 Rx .COMPLEX #90 tabs gabapentin 300 mg capsule 300 mg PO TID 90 days #270 caps 01/19/22 02/11/22 Rx duloxetine 30 mg capsule,delayed 1 cap PO DAILY 02/11/22 02/11/22 History release occscjycqg-xlfsnaocqursk-fswxthqb 1 cap PO Q8H PRN Headache #20 caps 02/19/22 03/01/22 Rx 50 mg-300 mg-40 mg capsule (Fioricet) famotidine 40 mg tablet 40 mg PO DAILY #90 tabs 02/19/22 03/01/22 Rx sulfamethoxazole 800 1 tablet PO Q12H #60 tabs 02/19/22 03/01/22 Rx mg-trimethoprim 160 mg tablet (Bactrim DS) Patient hx anesthesia problems: none Family hx anesthesia problems: none Results Review: All pre-operative results and documents have been reviewed as part of the pre-operative evaluation. [facility] Past Medical History Medical History Clostridium difficile colitis 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 Depression Epigastric pain Erosive gastritis Gout Hyperlipidemia Hypertension Obstructive sleep apnea Patient does not use a CPAP. Pancreatitis Peripheral neuropathy Surgical History Surgical History History of laparoscopic cholecystectomy (05/25/21) With intraoperative cholangiogram per Dr. Olvera. Family History Family History Mother Diabetes mellitus Father Lung cancer Social History Social History Social History: Surrogate decision maker: Samanthalong GomezReardon, spouse. Code status: Full code. Smoking packs per day: 3 Smoking cigarettes per day: 60.0 Years smoked: 30 Smoking pack-years: 90.00 Smoking status: Former smoker Tobacco type: cigarettes Second hand tobacco smoke exposure: No Smoking end date: 08/01/00 Alcohol intake: current Drinks per week: 12 Alcohol use details: Patient drinks 6 to 8 cans of beer on Mondays and Fridays. Substance use: never Substance
[2022-03-01 11:45] VITALS: BP 95/58; PULSE 52; RESP 13; O2SAT 99
[2022-03-01 11:55] VITALS: BP 104/56; PULSE 55; RESP 18; O2SAT 97
[2022-03-01 12:05] VITALS: BP 121/74; PULSE 54; RESP 13; O2SAT 98
== END 2022-03-01 12:23 | disposition home or self-care (01) ==
PROVIDERS: PCP Family Medicine; Visit Provider Internal Medicine Gastroenterology
PROC: 0DJ08ZZ Inspection of Upper Intestinal Tract, Via Natural or Artificial Opening Endoscopic (ICD-10-PCS; CPT 43235; principal; 2022-03-01 12:30)
DX: R10.13 Epigastric pain (principal); K21.00 Gastro-esophageal reflux disease with esophagitis, without bleeding; Z79.82 Long term (current) use of aspirin; F32.A Depression, unspecified; M10.9 Gout, unspecified; G47.33 Obstructive sleep apnea (adult) (pediatric); I10 Essential (primary) hypertension; E78.5 Hyperlipidemia, unspecified; G62.9 Polyneuropathy, unspecified; Z87.891 Personal history of nicotine dependence; E66.9 Obesity, unspecified; Z68.36 Body mass index [BMI] 36.0-36.9, adult
CPT/HCPCS: 43239; 88305; J2704; J7120

== ENCOUNTER 2022-04-06 09:48 | Outpatient (CLI) | payer MEDICARE, SELFPAY ==
--- NOTE | ~2022-04-06 | US_ITS ---
EXAMINATION: US abdomen complete DATE: 04/06/2022 14:36 INDICATION: Abnormal liver function tests. TECHNIQUE: Multiple grayscale and Doppler ultrasound images of the abdomen were obtained. COMPARISON: CT abdomen and pelvis 10/15/2021 FINDINGS: The pancreas is obscured by bowel gas. The liver is normal without focal lesion. There is n ormal flow in main portal vein. The gallbladder is absent. The common duct is normal and measures 7 m m. The spleen is normal in size. The kidneys are normal in size. Abdominal aorta is normal in caliber . Inferior vena cava is normal. IMPRESSION: 1. Normal abdominal ultrasound status post cholecystectomy. Reviewed, dictated and finalized at location A.
[2022-04-06 10:02] LABS: Basophils Absolute Auto 0.05 K/mm3 (0.00-0.10); Eosinophils Absolute Auto 0.18 K/mm3 (0.02-0.50); Eosinophils Percent Auto 3.5 % (1.0-6.0); Hematocrit 34.4 % (37.0-46.0); Hemoglobin 11.7 g/dL (12.4-15.3); Immature Granulocyte Absolute 0.02 K/mm3 (0.00-0.00); Immature Granulocyte Percent A 0.4 % (0.0-0.0); Lymphocytes Absolute Auto 1.99 K/mm3 (1.10-4.50); Lymphocytes Percent Auto 38.3 % (18.0-42.0); Mean Corpuscular Hemoglobin 32.7 pg (27.0-31.0); Mean Corpuscular Volume 96.1 fL (78.0-102.0); Mean Platelet Volume 10.5 fl (8.7-11.0); Monocytes Absolute Auto 0.74 K/mm3 (0.10-0.90); Monocytes Percent Auto 14.3 % (2.0-11.0); Neutrophils Absolute Auto 2.2 K/mm3 (1.7-7.2); Neutrophils Percent Auto 42.5 % (50.0-70.0); Platelet Count Result 128 K/mm3 (150-420); Red Blood Count 3.58 M/mm3 (4.70-6.10); White Blood Count 5.2 K/mm3 (4.8-10.8)
[2022-04-06 12:17] LABS: Alanine Aminotransferase 306 U/L (16-63); Albumin Level 3.2 g/dL (3.4-5.0); Alkaline Phosphatase 193 U/L (46-116); Anion Gap 7 mmol/L (8-16); Aspartate Amino Transferase 244 U/L (15-37); Blood Urea Nitrogen 13 mg/dL (7-18); Calcium 8.8 mg/dL (8.5-10.1); Carbon Dioxide 28 mmol/L (21-32); Chloride 103 mmol/L (98-108); Estimated Glomerular Filt Rate > 60; Glucose 96 mg/dL (70-99); Osmolality Calculated 286 mOsm/kg (285-295); Potassium 3.8 mmol/L (3.5-5.1); Sodium 138 mmol/L (136-145)
[2022-04-06 12:19] LABS: NT Pro B Type Natriuretic Pept 59 pg/mL (0-125)
[2022-04-06 13:53] LABS: Bilirubin Direct 0.4 mg/dL (0-0.2)
[2022-04-10 19:02] LABS: Hepatitis A Antibody IgM Nonreactive; Hepatitis B Core Antibody Nonreactive (Nonreactive); Hepatitis B Surface Antigen Nonreactive (Nonreactive); Hepatitis C Signal to Cutoff 1.15 ratio (<1.00); Hepatitis C Virus Antibody Reactive (Nonreactive)
[2022-04-11 18:19] LABS: Hepatitis C Viral RNA PCR 42 IU/mL
== END 2022-04-06 09:49 | disposition home or self-care (01) ==
LOC: CHSLAB 09:50
PROVIDERS: PCP Family Medicine; Visit Provider Nurse Practitioner Family
DX: R19.7 Diarrhea, unspecified (principal); R74.8 Abnormal levels of other serum enzymes; I50.9 Heart failure, unspecified; R74.01 Elevation of levels of liver transaminase levels
CPT/HCPCS: 36415; 76700; 80053; 80074; 82248; 83880; 85025

== ENCOUNTER 2022-04-09 07:53 | Outpatient (CLI) | payer MEDICARE, SELFPAY | END 2022-04-09 07:54 | disposition home or self-care (01) | LOC: CHSLAB 07:56 | PROVIDERS: PCP Family Medicine; Visit Provider Nurse Practitioner Family | DX: R19.7 Diarrhea, unspecified (principal) | CPT/HCPCS: 87045; 87324; 87427 ==

== ENCOUNTER 2022-04-29 09:31 | Outpatient (CLI) | payer MEDICARE, SELFPAY ==
[2022-04-29 10:15] LABS: Prothrombin Time 13.2 Seconds (11.1-14.7)
[2022-04-29 10:16] LABS: Alanine Aminotransferase 25 U/L (6-50); Albumin Level 3.9 g/dL (3.5-5.1); Alkaline Phosphatase 98 U/L (38-126); Anion Gap 5 mmol/L (8-16); Aspartate Amino Transferase 27 U/L (17-59); Bilirubin,Total 0.4 mg/dL (0.2-1.3); Blood Urea Nitrogen 14 mg/dL (9-20); Calcium 8.9 mg/dL (8.4-10.2); Carbon Dioxide 32 mmol/L (22-30); Chloride 103 mmol/L (98-107); Estimated Glomerular Filt Rate > 60; Glucose 108 mg/dL (65-110); Potassium 3.7 mmol/L (3.4-5.0); Sodium 140 mmol/L (137-145)
[2022-04-29 11:06] LABS: Hepatitis B Surface Antigen Negative (Negative)
[2022-04-29 11:11] LABS: HAV RESULT Negative (Negative); Hepatitis B Core IgM Result Negative (Negative)
[2022-04-29 11:23] LABS: Hepatitis C Virus Antibody Negative (Negative)
[2022-05-01 18:20] LABS: Hepatitis C Viral RNA PCR <15 IU/mL
== END 2022-04-29 09:32 | disposition home or self-care (01) ==
PROVIDERS: Nurse Practitioner Family; PCP Family Medicine; Visit Provider Internal Medicine Gastroenterology
DX: B19.20 Unspecified viral hepatitis C without hepatic coma (principal); R74.8 Abnormal levels of other serum enzymes
CPT/HCPCS: 36415; 80053; 80074; 85610; 87522

== ENCOUNTER 2022-05-01 14:02 | Emergency (ER) | payer MEDICARE, SELFPAY ==
[2022-05-01 14:09] VITALS: BP 133/83; PULSE 70; RESP 18; TEMP 36.5; O2SAT 98
[2022-05-01] MEDS: TETRACAINE HCL 0.5% OPHTH SOLN 4 ML BTL 1 DROP EACH EYE (14:21)
[2022-05-01] MEDS: FLUORESCEIN SOD 1 MG/STRIP EACH EYE (14:21)
[2022-05-01] MEDS: DACRIOSE EYE IRRIGATION 118 ML BOTTLE LEFT EYE (14:21)
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
[2022-05-01] MEDS: TETANUS,DIPHTHERIA,AC PERTUSSIS ADULT 0.5 ML (ADACEL) IM (14:39)
[2022-05-01 14:55] VITALS: BP 133/83; PULSE 70; RESP 16; TEMP 36.5; O2SAT 98
== END 2022-05-01 14:59 | disposition home or self-care (01) ==
PROVIDERS: Emergency Provider Emergency Medicine; PCP Family Medicine
DX: H10.32 Unspecified acute conjunctivitis, left eye (principal)
CPT/HCPCS: 90471; 90715; 99283; A9270

== ENCOUNTER 2022-10-04 08:41 | Outpatient (CLI) | payer MEDICARE, SELFPAY ==
[2022-10-04 08:52] LABS: Hematocrit 37.6 % (37.0-46.0); Hemoglobin 12.5 g/dL (12.4-15.3); Mean Corpuscular HGB Conc 33.2 g/dL (32.0-36.0); Mean Corpuscular Volume 93.3 fL (78.0-102.0); Mean Platelet Volume 10.5 fl (8.7-11.0); Platelet Count Result 159 K/mm3 (150-420); Red Blood Count 4.03 M/mm3 (4.70-6.10); Red Cell Distribution Width 13.4 % (11.6-14.4); White Blood Count 5.8 K/mm3 (4.8-10.8)
[2022-10-04 09:40] LABS: Alanine Aminotransferase 29 U/L (16-63); Albumin Level 3.3 g/dL (3.4-5.0); Alkaline Phosphatase 101 U/L (46-116); Anion Gap 7 mmol/L (8-16); Aspartate Amino Transferase 19 U/L (15-37); Bilirubin,Total 0.4 mg/dL (0.00-1.00); Blood Urea Nitrogen 20 mg/dL (7-18); Calcium 8.8 mg/dL (8.5-10.1); Carbon Dioxide 29 mmol/L (21-32); Chloride 107 mmol/L (98-108); Cholesterol 121 mg/dL (0-200); Estimated Glomerular Filt Rate > 60; Glucose 101 mg/dL (70-99); HDL Direct 38 mg/dL (40-60); LDL Cholesterol Calculated 57 mg/dL (<130); Osmolality Calculated 298 mOsm/kg (285-295); Potassium 4.2 mmol/L (3.5-5.1); Sodium 143 mmol/L (136-145); Total Protein 6.6 g/dL (6.4-8.2); Triglycerides 130 mg/dL (0-150)
== END 2022-10-04 08:42 | disposition home or self-care (01) ==
LOC: CHSLAB 08:43
PROVIDERS: PCP Family Medicine; Visit Provider Family Medicine
DX: E11.9 Type 2 diabetes mellitus without complications (principal); I10 Essential (primary) hypertension
CPT/HCPCS: 36415; 80053; 80061; 83036; 84550; 85027

== ENCOUNTER 2022-11-11 12:01 | Outpatient (CLI) | payer MEDICARE, SELFPAY ==
[2022-11-14 16:12] LABS: Amphetamines NEGATIVE ng/mL (<500); Barbiturates NEGATIVE ng/mL (<300); Benzodiazepines NEGATIVE ng/mL (<100); Cocaine Metabolite NEGATIVE ng/mL (<100); Methadone Metabolite NEGATIVE ng/mL (<100); Opiates NEGATIVE ng/mL (<100); Oxidant NEGATIVE mcg/mL (<200); pH 5.9 (4.5-9.0)
== END 2022-11-11 12:02 | disposition home or self-care (01) ==
LOC: CHSLAB 12:03
PROVIDERS: PCP Family Medicine; Visit Provider Nurse Practitioner Family
DX: G89.4 Chronic pain syndrome (principal); Z79.891 Long term (current) use of opiate analgesic
CPT/HCPCS: 80299

== ENCOUNTER 2023-01-20 14:01 | Outpatient (CLI) | payer MEDICARE, SELFPAY ==
[2023-01-20 14:18] LABS: Basophils Absolute Auto 0.04 K/mm3 (0.00-0.10); Basophils Percent Auto 0.8 % (0.0-1.0); Eosinophils Absolute Auto 0.29 K/mm3 (0.02-0.50); Eosinophils Percent Auto 5.9 % (1.0-6.0); Hematocrit 36.2 % (37.0-46.0); Hemoglobin 11.9 g/dL (12.4-15.3); Immature Granulocyte Absolute 0.02 K/mm3 (0.00-0.00); Immature Granulocyte Percent A 0.4 % (0.0-0.0); Lymphocytes Percent Auto 46.5 % (18.0-42.0); Mean Corpuscular HGB Conc 32.9 g/dL (32.0-36.0); Mean Corpuscular Hemoglobin 31.2 pg (27.0-31.0); Mean Platelet Volume 9.8 fl (8.7-11.0); Monocytes Absolute Auto 0.48 K/mm3 (0.10-0.90); Monocytes Percent Auto 9.7 % (2.0-11.0); Neutrophils Absolute Auto 1.8 K/mm3 (1.7-7.2); Neutrophils Percent Auto 36.7 % (50.0-70.0); Platelet Count Result 169 K/mm3 (150-420); Red Blood Count 3.81 M/mm3 (4.70-6.10); Red Cell Distribution Width 12.8 % (11.6-14.4)
[2023-01-20 15:01] LABS: Alanine Aminotransferase 46 U/L (16-63); Albumin Level 2.9 g/dL (3.4-5.0); Alkaline Phosphatase 108 U/L (46-116); Anion Gap 6 mmol/L (8-16); Aspartate Amino Transferase 31 U/L (15-37); Bilirubin,Total 0.2 mg/dL (0.00-1.00); Blood Urea Nitrogen 12 mg/dL (7-18); CRP 3.4 mg/dL (0.0-0.9); Calcium 8.8 mg/dL (8.5-10.1); Carbon Dioxide 30 mmol/L (21-32); Chloride 105 mmol/L (98-108); Estimated Glomerular Filt Rate > 60; Glucose 107 mg/dL (70-99); Lipase 67 U/L (16-77); Osmolality Calculated 291 mOsm/kg (285-295); Potassium 4.2 mmol/L (3.5-5.1); Sodium 141 mmol/L (136-145); Total Protein 6.5 g/dL (6.4-8.2)
== END 2023-01-20 14:02 | disposition home or self-care (01) ==
LOC: CHSLAB 14:03
PROVIDERS: PCP Family Medicine; Visit Provider Family Medicine
DX: R10.9 Unspecified abdominal pain (principal)
CPT/HCPCS: 36415; 80053; 83690; 85025; 86140

== ENCOUNTER 2023-09-22 14:51 | Outpatient (CLI) | payer MEDICARE, SELFPAY ==
--- NOTE | ~2023-09-22 | XR_ITS ---
XR chest 2V 09/22/2023 15:07 Indication: Cough for 5 months Procedure: 2 view chest Comparison: Comparison to multiple prior studies sequentially, with oldest reviewed study dated 10/14. Findings: Heart size normal. Mildly elevated right diaphragm. Subtle chronic infiltrates of the righ t upper and lower lung, unchanged. No pleural effusion. No pneumothorax. No acute osseous abnormality . There are cholecystectomy clips. Impression: 1: No acute cardiopulmonary disease. Reviewed, dictated and finalized at location A. 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
== END 2023-09-22 14:52 | disposition home or self-care (01) ==
LOC: CHSIMG 14:53
PROVIDERS: PCP Nurse Practitioner Family; Visit Provider Nurse Practitioner Family
DX: R06.02 Shortness of breath (principal); R05.9 Cough, unspecified
CPT/HCPCS: 71046

== ENCOUNTER 2023-09-26 08:26 | Outpatient (CLI) | payer MEDICARE, SELFPAY ==
[2023-09-26 08:57] LABS: Basophils Absolute Auto 0.05 K/mm3 (0.00-0.10); Basophils Percent Auto 0.8 % (0.0-1.0); Eosinophils Absolute Auto 0.33 K/mm3 (0.02-0.50); Eosinophils Percent Auto 5.1 % (1.0-6.0); Hematocrit 40.7 % (37.0-46.0); Hemoglobin 13.8 g/dL (12.4-15.3); Immature Granulocyte Absolute 0.01 K/mm3 (0.00-0.00); Immature Granulocyte Percent A 0.2 % (0.0-0.0); Mean Corpuscular HGB Conc 33.9 g/dL (32.0-36.0); Mean Corpuscular Hemoglobin 30.9 pg (27.0-31.0); Mean Corpuscular Volume 91.3 fL (78.0-102.0); Mean Platelet Volume 11.1 fl (8.7-11.0); Monocytes Absolute Auto 0.68 K/mm3 (0.10-0.90); Monocytes Percent Auto 10.6 % (2.0-11.0); Neutrophils Absolute Auto 2.5 K/mm3 (1.7-7.2); Neutrophils Percent Auto 38.3 % (50.0-70.0); Platelet Count Result 181 K/mm3 (150-420); Red Blood Count 4.46 M/mm3 (4.70-6.10); Red Cell Distribution Width 12.9 % (11.6-14.4); White Blood Count 6.4 K/mm3 (4.8-10.8)
[2023-09-26 09:07] LABS: Hemoglobin A1C 5.9 % (<5.7)
[2023-09-26 09:57] LABS: Alanine Aminotransferase 30 U/L (16-63); Albumin Level 3.4 g/dL (3.4-5.0); Alkaline Phosphatase 102 U/L (46-116); Anion Gap 10 mmol/L (8-16); Aspartate Amino Transferase 21 U/L (15-37); Bilirubin,Total 0.6 mg/dL (0.00-1.00); Blood Urea Nitrogen 17 mg/dL (7-18); Calcium 9.1 mg/dL (8.5-10.1); Carbon Dioxide 28 mmol/L (21-32); Chloride 103 mmol/L (98-108); Cholesterol 124 mg/dL (0-200); Estimated Glomerular Filt Rate > 60; Glucose 113 mg/dL (70-99); HDL Direct 46 mg/dL (40-60); LDL Cholesterol Calculated 50 mg/dL (<130); Osmolality Calculated 294 mOsm/kg (285-295); Potassium 4.2 mmol/L (3.5-5.1); Sodium 141 mmol/L (136-145); Thyroid Stimulating Hormone 2.14 uIU/mL (0.36-3.74); Total Protein 7.3 g/dL (6.4-8.2); Triglycerides 139 mg/dL (0-150); Uric Acid 6.3 mg/dL (3.5-7.2)
[2023-09-27 17:53] LABS: Free T3 3.26 pg/mL (2.18-3.98)
[2023-09-29 13:48] LABS: Vitamin D 25 Hydroxy 83 ng/mL (30-100)
== END 2023-09-26 08:27 | disposition home or self-care (01) ==
LOC: CHSLAB 08:28
PROVIDERS: PCP Nurse Practitioner Family; Visit Provider Nurse Practitioner Family
DX: G43.909 Migraine, unspecified, not intractable, without status migrainosus (principal); F32.9 Major depressive disorder, single episode, unspecified; M10.9 Gout, unspecified; R73.03 Prediabetes; I50.9 Heart failure, unspecified; Z68.34 Body mass index [BMI] 34.0-34.9, adult
CPT/HCPCS: 36415; 80053; 80061; 82306; 83036; 84439; 84443; 84481; 84550; 85025

== ENCOUNTER 2024-01-14 11:20 | Emergency (ER) | payer MEDICARE, SELFPAY ==
[2024-01-14 11:20] VITALS: BP 145/87; PULSE 95; RESP 14; TEMP 36.4; O2SAT 97
[2024-01-14] MEDS: DACRIOSE EYE IRRIGATION 118 ML BOTTLE 10 ML LEFT EYE (11:40)
[2024-01-14] MEDS: FLUORESCEIN SOD 1 MG/STRIP EACH EYE (11:40)
[2024-01-14] MEDS: TETRACAINE HCL 0.5% OPHTH SOLN 4 ML BTL 1 DROP EACH EYE (11:40)
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
[2024-01-14] MEDS: NEOMYCIN/POLYMYXIN/DEXAMETH OP SUSP 5 ML BTL 2 DROP LEFT EYE (11:59)
== END 2024-01-14 12:06 | disposition home or self-care (01) ==
PROVIDERS: Emergency Provider Emergency Medicine; PCP Family Medicine
DX: S05.02XA Injury of conjunctiva and corneal abrasion without foreign body, left eye, initial encounter (principal); I10 Essential (primary) hypertension; E78.5 Hyperlipidemia, unspecified; Z87.891 Personal history of nicotine dependence; X58.XXXA Exposure to other specified factors, initial encounter
CPT/HCPCS: 99283; A9270

== ENCOUNTER 2024-06-20 11:56 | Outpatient (CLI) | payer MEDICARE, SELFPAY ==
[2024-06-20 12:13] LABS: Basophils Absolute Auto 0.07 K/mm3 (0.00-0.10); Eosinophils Absolute Auto 0.21 K/mm3 (0.02-0.50); Eosinophils Percent Auto 3.1 % (1.0-6.0); Hematocrit 40.9 % (37.0-46.0); Hemoglobin 13.7 g/dL (12.4-15.3); Immature Granulocyte Absolute 0.02 K/mm3 (0.00-0.00); Immature Granulocyte Percent A 0.3 % (0.0-0.0); Lymphocytes Absolute Auto 2.48 K/mm3 (1.10-4.50); Lymphocytes Percent Auto 36.1 % (18.0-42.0); Mean Corpuscular HGB Conc 33.5 g/dL (32-36); Mean Corpuscular Hemoglobin 30.5 pg (27.0-31.0); Mean Corpuscular Volume 91.1 fL (78.0-102.0); Mean Platelet Volume 10.5 fl (8.7-11.0); Monocytes Absolute Auto 0.62 K/mm3 (0.10-0.90); Neutrophils Absolute Auto 3.47 K/mm3 (1.70-7.20); Neutrophils Percent Auto 50.5 % (50.0-70.0); Platelet Count Result 181 K/mm3 (150-420); Red Blood Count 4.49 M/mm3 (4.70-6.10); Red Cell Distribution Width 12.9 % (11.6-14.4); White Blood Count 6.9 K/mm3 (4.8-10.8)
[2024-06-20 12:40] LABS: Hemoglobin A1C 5.6 % (<5.7)
[2024-06-20 13:21] LABS: Alanine Aminotransferase 28 U/L (16-63); Albumin Level 3.4 g/dL (3.4-5.0); Alkaline Phosphatase 131 U/L (46-116); Anion Gap 11 mmol/L (4-12); Aspartate Amino Transferase 24 U/L (15-37); Bilirubin,Total 0.6 mg/dL (0.00-1.00); Blood Urea Nitrogen 18 mg/dL (7-18); Calcium 9.1 mg/dL (8.5-10.1); Carbon Dioxide 27 mmol/L (21-32); Chloride 103 mmol/L (98-108); Estimated Glomerular Filt Rate 57; Folic Acid > 20.0 ng/mL (8.6->20); Glucose 134 mg/dL (70-99); Osmolality Calculated 295 mOsm/kg (285-295); Sodium 141 mmol/L (136-145); Thyroid Stimulating Hormone Reflex 1.17 u/IU/mL (0.36-3.74); Total Protein 7.1 g/dL (6.4-8.2); Vitamin B12 431 pg/mL (193-986)
== END 2024-06-20 11:57 | disposition home or self-care (01) ==
LOC: CHSLAB 11:57
PROVIDERS: PCP Family Medicine; Visit Provider Family Medicine
DX: E53.8 Deficiency of other specified B group vitamins (principal); E03.9 Hypothyroidism, unspecified; E11.9 Type 2 diabetes mellitus without complications; G62.9 Polyneuropathy, unspecified
CPT/HCPCS: 36415; 80053; 82607; 82746; 83036; 84443; 85025